=== PATIENT | female | born 1945 | race Caucasian/White ===

== ENCOUNTER 2016-06-12 15:38 | Inpatient (IN) ==
[2016-06-12] MEDS ORDERED: MORPHINE 2 MG/ML SYRINGE IM STA (15:59)
[2016-06-12] MEDS ORDERED: DECADRON 4 MG/ML SDV IM STA (15:59)
--- NOTE | 2016-06-12 16:02 | ED.PDOC ---
General ED Provider: Dr. FABIENNE JENNINGS Chief Complaint: Respiratory Complaint Stated Complaint: Start coughing cince yesterday night, today morning started having fever, coughing, congested, hurting all over, hurting in head from coughing. this is 3 episode since january. Time Seen by Physician: 16:00 Mode of Arrival: Walk-In Information Source: Patient Primary Care Provider: MILES JACKSON Nursing and Triage Documentation Reviewed and Agree: Yes Respiratory Complaint Exam - Respiratory Complaint/Exam Symptoms Are: Still present Timing: Constant Initial Severity: Moderate Current Severity: Moderate Location: Chest Character: Reports: Productive cough Aggravating: Reports: URI Alleviating: Reports: None Associated Signs and Symptoms: Reports: URI, Nasal congestion, Hoarseness, Sinus discomfort, Sore throat. Denies: Rapid breathing, Dyspnea, Fever, Chills , Chest pain, Pleuritic chest pain, Wheezing, Hemoptysis, Dizziness, Calf pain, Calf swelling, Edema, Vomiting, Weight loss, Decreased oral intake, Increased thirst, Increased appetite, Increased urination Related History: Reports: Similar episode History of Healthcare-Acquired Pneumonia: No Related Surgical History: Reports: None Pulmonary Embolism Risk Factors: None Cardiac Risk Factors: Reports: None Pseudomonas Risk Factors: Reports: None Tuberculosis Risk Factors: Reports: None Status Asthmaticus Risk Factors: Reports: None Home Oxygen Use: No Recent Stress Test: No Recent Echo/LV Function: No Current Antibiotic Use: No Current Asthma Medication Use: No Respiratory Distress: Mild Inadequate Respiratory Effort: No Dysphagia Present: No Stridor Present: No Accessory Muscle Use: No Retractions: Not Present Diminished Breath Sounds: No Sinus Tenderness: None Grunting Respirations: No Differential Diagnoses: Airway Obstruction, Pneumonia, Bronchitis, URI, Influenza Review of Systems - Review Of Systems Constitutional: Reports: Fever, Malaise, Weakness Eyes: Reports: No symptoms Ears, Nose, Mouth, Throat: Reports: No symptoms Respiratory: Reports: Cough Cardiac: Reports: No symptoms GI: Reports: No symptoms : Reports: No symptoms Musculoskeletal: Reports: No symptoms Skin: Reports: No symptoms Neurological: Reports: Headache Endocrine: Reports: No symptoms Hematologic/Lymphatic: Reports: No symptoms All Other Systems: Reviewed and Negative Past Medical History - Past Medical History Previously Healthy: No Endocrine: Reports: None Cardiovascular: Reports: None Respiratory: Reports: None Hematological: Reports: None Gastrointestinal: Reports: None Genitourinary: Reports: None Neuro/Psych: Reports: None Musculoskeletal: Reports: None Cancer: Reports: None Last Menstrual Period: post menopausal - Surgical History General Surgical History: Reports: None - Family History Family History: Reports: None - Social History Smoking Status: Former smoker Hx Substance Use: No Alcohol Screening: None Physical Exam - Physical Exam Appearance: Ill-appearing, Obese Pain Distress: Moderate Eyes: EOMI, Conjunctiva clear ENT: Ears normal, Nose normal, Oropharynx normal Respiratory: Airway patent, Breath sounds diminished, Crackles Cardiovascular: RRR, Pulses normal, No rub, No murmur GI/: Soft, Nontender, No masses, Bowel sounds normal, No Organomegaly Musculoskeletal: Normal strength, ROM intact, No edema, No calf tenderness Skin: Warm, Dry, Normal color Neurological: Sensation intact, Motor intact, Reflexes intact, Cranial nerves intact, Alert, Oriented Psychiatric: Affect appropriate, Mood appropriate Interpretation - Radiology Interpretation Radiology Interpretation By: Radiologist Radiology Results: Negative Exam Interpreted: CT Scan Re-Evaluation - Re-Evaluation Time of Re-Evaluation: 17:42 Status: Unchanged Critical Care Note - Critical Care Note Total Time (mins): 0 Course - Course Hematology/Chemistry: 06/12/16 16:15 06/12/16 16:15 Orders, Labs, Meds: Lab Review 06/12/16 06/12/16 16:15 17:20 WBC 5.70 RBC 4.27 Hgb 12.7 Hct 37.3 MCV 87.4 MCH 29.7 MCHC 34.0 RDW Coeff of Cely 13.5 Plt Count 207 Immature Gran % (Auto) 0.4 Neut % (Auto) 84.5 Lymph % (Auto) 7.4 [place] % (Auto) 6.3 Eos % (Auto) 0.9 Baso % (Auto) 0.5 Immature Gran # (Auto) 0.0 Neut # 4.8 Lymph # 0.4 L [place] # 0.4 Eos # 0.1 Baso # 0.0 Sodium 136 Potassium 3.9 Chloride 102 Carbon Dioxide 23 Anion Gap 14.9 BUN 11 Creatinine 0.81 Estimated GFR (MDRD) 70.00 BUN/Creatinine Ratio 13.58 Glucose 107 Lactic Acid 7.3 Calcium 10.4 H Total Bilirubin 0.42 AST 26 ALT 22 Alkaline Phosphatase 73 Total Creatine Kinase 212 CK-MB (CK-2) 1.2 CK-MB (CK-2) % 0.11560 Troponin I < 0.0100 Total Protein 7.5 Albumin 4.2 Globulin 3.3 Albumin/Globulin Ratio 1.27 Procalcitonin < 0.05 Urine Color Yellow Urine Clarity Clear Urine pH 7.0 Ur Specific [place] 1.015 Urine Protein Negative Urine Glucose (UA) Negative Urine Ketones 1+ Urine Blood Trace-intact Urine Nitrite Negative Urine Bilirubin Negative Urine Urobilinogen 1.0 Ur Leukocyte Esterase Negative Urine Microscopic RBC 2-5 Urine Microscopic WBC 0-2 Ur Squamous Epith Cells 0-2 Influenza A (Rapid) Negative Influenza B (Rapid) Negative Orders Category Date Time Status BLOOD CULTURE Stat LAB 06/12/16 16:15 Received CBC W/ AUTO DIFF Stat LAB 06/12/16 16:15 Completed COMPREHENSIVE METABOLIC PANEL Stat LAB 06/12/16 16:15 Completed CREATINE KINASE Stat LAB 06/12/16 16:15 Completed LACTIC ACID Stat LAB 06/12/16 16:15 Completed PROCALCITONIN Stat LAB 06/12/16 16:15 Completed RAPID FLU A/B Stat LAB 06/12/16 16:15 Completed TROPONIN I Stat LAB 06/12/16 16:15 Completed UA [URINALYSIS C & S IF INDICATED] Stat LAB 06/12/16 17:20 Completed Acetaminophen [Tylenol] MEDS 06/12/16 16:25 Discontinued 500 mg PO ONCE STA Dexamethasone 4 mg/ml Inj [Decadron 4 mg/ml Sdv] MEDS 06/12/16 15:59 Discontinued 4 mg IM ONCE STA Guaifenesin/Codeine Phosphate [Robitussin AC Syrup] MEDS 06/12/16 16:07 Discontinued 10 ml PO ONCE STA Morphine Sulfate [Morphine 2 mg/ml Syringe] MEDS 06/12/16 15:59 Discontinued 2 mg IM ONCE STA CT CHEST W/O CONTRAST Stat RADS 06/12/16 15:59 Completed Medications Discontinued Medications Generic Name Dose Route Start Last Admin Trade Name Freq PRN Reason Stop Dose Admin Acetaminophen 500 mg 06/12/16 16:25 06/12/16 16:46 Tylenol PO 06/12/16 16:26 500 mg ONCE STA Administration Dexamethasone Sodium Phosphate 4 mg 06/12/16 15:59 06/12/16 16:17 Decadron 4 Mg/Ml Sdv IM 06/12/16 16:00 4 mg ONCE STA Administration Guaifenesin/Codeine Phosphate 10 ml 06/12/16 16:07 06/12/16 16:22 Robitussin Ac Syrup PO 06/12/16 16:08 10 ml ONCE STA Administration Morphine Sulfate 2 mg 06/12/16 15:59 06/12/16 16:17 Morphine 2 Mg/Ml Syringe IM 06/12/16 16:00 2 mg ONCE STA Administration Vital Signs: Temp Pulse Resp BP Pulse Ox 06/12/16 17:38 103 F H 06/12/16 15:39 102.4 F H 103 H 24 183/112 H 95 Departure - Departure Time of Disposition: 17:43 Disposition: ADMITTED INPATIENT Discharge Problem: Dehydration, Viral infection Instructions: Viral Pneumonia (ED) Condition: Stable Pt referred to PMD for follow-up: No Allergies/Adverse Reactions: Allergies Penicillins Adverse Reaction (Verified 06/12/16 15:47) Home Medications: Ambulatory Orders Lisinopril/Hydrochlorothiazide [Zestoretic 20-12.5 mg Tablet] 1 each PO BID Disposition Discussed With: Patient
[2016-06-12] MEDS ORDERED: ROBITUSSIN AC SYRUP PO STA (16:07)
[2016-06-12] MEDS ORDERED: TYLENOL PO STA (16:25)
--- NOTE | 2016-06-12 16:26 | CT ---
EXAM: Chest CT without contrast TECHNIQUE: Helical axial CT of the chest was performed without contrast with coronal and sagittal r econstructions COMPARISON: None. HISTORY: Cough FINDINGS: Lungs are clear with no infiltrate or failure or effusion or nodule or mass. There is no pathologic mediastinal or hilar adenopathy. There is no supraclavicular or axillary adenopathy. T here is calcific atherosclerosis of the aorta. There is a small hiatal hernia. There are no acute osseous abnormalities. There is a tiny low attenuation focus within the right hepatic lobe too smal l to characterize but probably a simple cyst. There is a tiny hyperdense cyst in the upper pole of the left kidney. There are a few pancreatic calcifications. Upper abdomen is otherwise unremarkabl e IMPRESSION: 1. No acute abnormality in the chest. 2. Other miscellaneous findings as above.
[2016-06-12 16:30] LABS: BASOPHILS % (AUTO) 0.5 % (0.0-3.0); EOSINOPHILS # (AUTO) 0.1 K/ul (0.0-0.7); EOSINOPHILS % (AUTO) 0.9 % (0.0-7.0); HEMATOCRIT 37.3 % (37.0-47.0); HEMOGLOBIN 12.7 g/dl (12.0-16.0); IMMATURE GRANULOCYTE % (AUTO) 0.4 % (0.0-5.0); LYMPHOCYTES # (AUTO) 0.4 K/uL (0.60-3.4); LYMPHOCYTES % (AUTO) 7.4 (10.0-50.0); MEAN CORPUSCULAR HEMOGLOBIN 29.7 pg (27.0-31.0); MEAN CORPUSCULAR VOLUME 87.4 fl (81.0-99.0); MONOCYTES # (AUTO) 0.4 K/uL (0.4-2.0); MONOCYTES % (AUTO) 6.3 (0-10); NEUTROPHILS # (AUTO) 4.8 K/ul (2.0-6.9); NEUTROPHILS % (AUTO) 84.5; PLATELET COUNT 207 10^3/uL (140-440); RED BLOOD COUNT 4.27 10^6/ul (4.20-5.40)
[2016-06-12 16:49] LABS: FLU INTERNAL QC INTERNAL QC VALID; RAPID FLU A NEGATIVE (NEGATIVE); RAPID FLU B NEGATIVE (NEGATIVE)
[2016-06-12 17:06] LABS: ALANINE AMINOTRANSFERASE 22 U/L (12-78); ALBUMIN 4.2 g/dL (3.4-5.0); ALBUMIN/GLOBULIN RATIO 1.27; ALKALINE PHOSPHATASE 73 U/L (53-141); ANION GAP 14.9; ASPARTATE AMINO TRANSFERASE 26 U/L (15-37); BILIRUBIN,TOTAL 0.42 mg/dL (0.00-1.20); BLOOD UREA NITROGEN 11 mg/dL (7-18); BUN/CREATININE RATIO 13.58; CALCIUM 10.4 mg/dL (8.2-10.2); CARBON DIOXIDE 23 mmol/L (23-31); CHLORIDE 102 mmol/L (98-107); CREATINE KINASE 212 U/L; CREATININE 0.81 mg/dL (0.60-1.30); GLUCOSE 107 mg/dL (82-115); POTASSIUM 3.9 mmol/L (3.5-5.10); SODIUM 136 mmol/L (136-145); TOTAL PROTEIN 7.5 g/dL (5.8-8.1)
[2016-06-12 17:07] LABS: CREATINE KINASE MB 1.2 ng/ml (0.0-3.6)
[2016-06-12 17:26] LABS: BILIRUBIN,URINE Negative (NEGATIVE); KETONES,URINE 1+ (NEGATIVE); LEUKOCYTE ESTERASE ,URINE Negative (NEGATIVE); NITRITE,URINE Negative (NEGATIVE); PROTEIN,URINE Negative (NEGATIVE); URINE, BLOOD Trace-intact (NEGATIVE)
[2016-06-12 17:31] LABS: ADD URINE MICROSCOPIC YES
[2016-06-12] MEDS ORDERED: CATAPRES PO STA (17:43)
[2016-06-12] MEDS ORDERED: ROCEPHIN 1 GM in SODIUM CHLORIDE 50 ML IV SCH (18:00)
[2016-06-12] MEDS: SODIUM CHLORIDE 1,000 ML IV SCH (19:01)
[2016-06-12] MEDS ORDERED: ROCEPHIN ONE (19:20)
[2016-06-12] MEDS: DUONEB NEB SCH ×2 (19:40→23:01)
[2016-06-12 19:52] VITALS: BMI 39.6
[2016-06-12] MEDS: TESSALON PERLES PO SCH ×2 (20:08→20:49)
[2016-06-12] MEDS: TYLENOL PO PRN (20:09)
[2016-06-12] MEDS ORDERED: SODIUM CHLORIDE 50 ML IV ONE (20:11)
[2016-06-12] MEDS: SOLU-MEDROL 40 MG IVP SCH ×2 (20:12→20:49)
[2016-06-13 00:53] LABS: BASOPHILS % (AUTO) 0.2 % (0.0-3.0); HEMATOCRIT 35.6 % (37.0-47.0); HEMOGLOBIN 12.1 g/dl (12.0-16.0); IMMATURE GRANULOCYTE % (AUTO) 0.2 % (0.0-5.0); LYMPHOCYTES # (AUTO) 0.3 K/uL (0.60-3.4); LYMPHOCYTES % (AUTO) 7.2 (10.0-50.0); MEAN CORPUSCULAR HEMOGLOBIN 29.7 pg (27.0-31.0); MEAN CORPUSCULAR VOLUME 87.5 fl (81.0-99.0); MONOCYTES # (AUTO) 0.1 K/uL (0.4-2.0); MONOCYTES % (AUTO) 2.4 (0-10); NEUTROPHILS # (AUTO) 3.7 K/ul (2.0-6.9); PLATELET COUNT 200 10^3/uL (140-440); RED BLOOD COUNT 4.07 10^6/ul (4.20-5.40); WHITE BLOOD COUNT 4.15 K/ul (4.6-10.2)
[2016-06-13 01:40] LABS: ALBUMIN 3.7 g/dL (3.4-5.0); ALBUMIN/GLOBULIN RATIO 1.09; ANION GAP 13.6; BILIRUBIN,TOTAL 0.26 mg/dL (0.00-1.20); BUN/CREATININE RATIO 15.18; CALCIUM 10.2 mg/dL (8.2-10.2); CREATINE KINASE MB 1.1 ng/ml (0.0-3.6); CREATININE 0.79 mg/dL (0.60-1.30); POTASSIUM 3.6 mmol/L (3.5-5.10); TOTAL PROTEIN 7.1 g/dL (5.8-8.1); TROPONIN I 0.016 ng/ml (0.0000-0.4000)
[2016-06-13] MEDS: SOLU-MEDROL 40 MG IVP SCH ×3 (04:00→21:11)
[2016-06-13] MEDS: TYLENOL PO PRN ×2 (04:01→12:26)
[2016-06-13] MEDS: DUONEB NEB SCH ×4 (04:51→23:04)
[2016-06-13] MEDS: LOVENOX SUBCUT SCH (09:35)
[2016-06-13] MEDS: TESSALON PERLES PO SCH ×3 (09:35→21:02)
[2016-06-13] MEDS: ZESTORETIC 20-12.5 MG TAB PO SCH ×3 (09:37→21:02)
[2016-06-13] MEDS: SODIUM CHLORIDE 1,000 ML IV SCH (09:39)
--- NOTE | 2016-06-13 13:00 | PCM.PROG ---
Attending Provider: ATTENDING PROVIDER: Dr. MILES JACKSON DATE OF SERVICE: 06/13/16 SUBJECTIVE: This 70 year old WHITE/ F was hospitalized 06/12/16. The patient is hospitalized with acute bronchitis, COPD, and severe hypertension. Condition is stable. She is still coughing and abdominal muscles are sore from coughing. She is not in any distress, running a low grade fever. Testing for influenza A and B were negative. REVIEW OF SYSTEMS: CONSTITUTIONAL: No night sweats. No fatigue, malaise, lethargy. No fever or chills. HEENT: Eyes: No visual changes. No eye pain. No eye discharge. ENT: No runny nose. No epistaxis. No sinus pain. No odynophagia. No congestion. RESPIRATORY: Dry cough, no congestion. No hemoptysis. CARDIOVASCULAR: No angina symptoms. No CHF symptoms. No atypical chest pain for CAD. No palpitations. No shortness of breath. No PND, no orthopnea. GASTROINTESTINAL: No abdominal pain. No nausea or vomiting. No diarrhea or constipation. No hematemesis. No hematochezia. GENITOURINARY: No urgency. No frequency. No dysuria. No hematuria. No obstructive symptoms. No discharge. No pain. No significant abnormal bleeding. MUSCULOSKELETAL: No musculoskeletal pain; no joint swelling. NEUROLOGICAL: Awake, alert, oriented to time, place and person. No headache. No neck pain. No syncope. No seizures. No dizziness. PSYCHIATRIC: Not anxious. No depression. No suicidal thoughts. No homicidal thoughts. SKIN: No rash. No lesions. No wounds. ENDOCRINE: No unexplained weight loss. No weight gain. HEMATOLOGIC/LYMPHATIC: No anemia. No purpura. No petechiae. No prolonged or excessive bleeding. No palpable lymph nodes. PHYSICAL EXAMINATION: GENERAL: The patient is awake, alert and oriented, lying in bed in no distress. VITAL SIGNS: Temperature 99.5 F, Pulse 69, Respiratory Rate 17, BP 156/75, Pulse Ox 99% HEENT: Head normocephalic, atraumatic. Eyes: Extraocular muscles are intact. Pupils are equal, round and reactive to light and accommodation. Ears: No lesions. Nose appeared normal. Throat: No exudate or erythema. NECK: Supple. No JVD, no carotid bruit. No lymphadenopathy or thyromegaly. LUNGS: Decreased breath sounds. Inspiratory and expiratory wheeze present. Percussion note normal. Chest symmetrical. HEART: S1, S2, no S3. No murmurs. No cyanosis or clubbing. No ascites. Pulses: Dorsalis pedis and posterior tibial pulses +1 to +2 both sides. ABDOMEN: Soft. Non-tender. Bowel sounds active. No CVA tenderness. No mass felt. EXTREMITIES: No edema. Full range of motion of all extremities, equal. NEUROLOGIC: No focal deficit. Cranial nerves II through XII are grossly intact. No headache, no double vision or headache. SKIN: Not dry. Intact. Turgor-normal. LYMPHATIC: No palpable lymph nodes/no lymphedema. MUSCULOSKELETAL: Normal joints with no swelling. Muscle tone is normal. LAB REVIEW: 06/13/16 00:50 06/13/16 00:50 06/13/16 00:50: WBC 4.15 L, RBC 4.07 L, Hgb 12.1, Hct 35.6 L, MCV 87.5, MCH 29.7 , MCHC 34.0, RDW Coeff of Cely 13.5, Plt Count 200, Immature Gran % (Auto) 0.2, Neut % (Auto) 90.0, Lymph % (Auto) 7.2 L, [place] % (Auto) 2.4, Eos % (Auto) 0.0, Baso % (Auto) 0.2, Immature Gran # (Auto) 0.0, Neut # 3.7, Lymph # 0.3 L, [place] # 0.1 L, Eos # 0.0, Baso # 0.0, Sodium 138, Potassium 3.6, Chloride 105, Carbon Dioxide 23, Anion Gap 13.6, BUN 12, Creatinine 0.79, Estimated GFR (MDRD) 72.00 , BUN/Creatinine Ratio 15.18, Glucose 175 H D, Calcium 10.2, Total Bilirubin 0.26, AST 25, ALT 21, Alkaline Phosphatase 63, Total Creatine Kinase 314, CK-MB (CK-2) 1.1, CK-MB (CK-2) % 0.24093, Troponin I 0.0160, Total Protein 7.1, Albumin 3.7, Globulin 3.4, Albumin/Globulin Ratio 1.09 ASSESSMENT: 1. Acute bronchitis 2. Severe hypertension 3. Obesity PLAN: 1. Discontinue Morphine 2. Discontinue IV as long as the patient is eating good. 3. Up and about. 4. Tessalon Perles 200 mg t.i.d. for dry cough. 5. Regular diet. 6. Monitor blood pressure. Plan and coordination of the patient's care discussed in the presence of Automated Equipment Engineer Technician and nurse. CONDITION: STABLE SCRIBED BY: FAUSTINO ANGUIANO Tool Dresser scribed while in presence of service performed by Dr. MILES JACKSON on 06/13/16 ([id number])
[2016-06-13] MEDS ORDERED: ROCEPHIN 1 GM in SODIUM CHLORIDE 100 ML IV SCH (21:00)
[2016-06-14] MEDS: TYLENOL PO PRN ×2 (00:35→15:48)
[2016-06-14] MEDS: DUONEB NEB SCH ×4 (05:26→23:08)
[2016-06-14] MEDS: SOLU-MEDROL 40 MG IVP SCH ×2 (05:33→13:00)
[2016-06-14 05:35] LABS: BASOPHILS % (AUTO) 0.1 % (0.0-3.0); HEMATOCRIT 35.7 % (37.0-47.0); HEMOGLOBIN 12.1 g/dl (12.0-16.0); IMMATURE GRANULOCYTE % (AUTO) 0.6 % (0.0-5.0); LYMPHOCYTES # (AUTO) 0.7 K/uL (0.60-3.4); LYMPHOCYTES % (AUTO) 10.4 (10.0-50.0); MEAN CORPUSCULAR HEMOGLOBIN 29.7 pg (27.0-31.0); MEAN CORPUSCULAR HGB CONC 33.9 (31.8-35.4); MEAN CORPUSCULAR VOLUME 87.7 fl (81.0-99.0); MONOCYTES # (AUTO) 0.4 K/uL (0.4-2.0); MONOCYTES % (AUTO) 5.5 (0-10); NEUTROPHILS # (AUTO) 5.9 K/ul (2.0-6.9); NEUTROPHILS % (AUTO) 83.4; PLATELET COUNT 215 10^3/uL (140-440); RED BLOOD COUNT 4.07 10^6/ul (4.20-5.40); WHITE BLOOD COUNT 7.11 K/ul (4.6-10.2)
[2016-06-14 06:07] LABS: ALBUMIN 3.6 g/dL (3.4-5.0); ALBUMIN/GLOBULIN RATIO 1.09; BILIRUBIN,TOTAL 0.3 mg/dL (0.00-1.20); BUN/CREATININE RATIO 21.42; CALCIUM 10.6 mg/dL (8.2-10.2); CREATININE 0.84 mg/dL (0.60-1.30); TOTAL PROTEIN 6.9 g/dL (5.8-8.1)
[2016-06-14] MEDS: LOVENOX SUBCUT SCH (09:03)
[2016-06-14] MEDS: TESSALON PERLES PO SCH ×3 (09:03→20:34)
[2016-06-14] MEDS: ZESTORETIC 20-12.5 MG TAB PO SCH ×2 (09:03→20:33)
--- NOTE | 2016-06-14 11:21 | HP ---
DATE OF SERVICE: 06/12/16 REASON FOR HOSPITALIZATION: Fever, chills, cough, congestion, uncontrolled hypertension. HISTORY OF PRESENT ILLNESS: 70-year-old white female was brought to the emergency room with fever and chills with cough and congestion. The patient also had a blood pressure of 180/ 112. She was short of breath. REVIEW OF SYSTEMS: CONSTITUTIONAL: Fatigue and weakness. No fever. HEENT: No sinus drainage, no sore throat. RESPIRATORY: Cough and congestion, yellowish sputum production. No hemoptysis. CARDIOVASCULAR: Pleuritic type of pain and shortness of breath. No PND, no orthopnea. GASTROINTESTINAL: The patient does not have much appetite. No nausea, no vomiting. No melena or abdominal pain. No GERD. GENITOURINARY: No hematuria, no polyuria. RAIL FILLER: No blackout, no dizziness, no headache, no double vision. MUSCULOSKELETAL: No osteoarthritis pain, no joint swelling. ENDOCRINE: No weight loss, no weight gain. SKIN: Not dry, no rash. PSYCHIATRIC: Not anxious, no depression, no suicidal thoughts, no homicidal thoughts. PAST MEDICAL/SURGICAL HISTORY: 1. Chronic lung disease 2. Hypertension 3. BMI of 40 with morbid obesity 4. Generalized osteoarthritis 5. Chronic anemia 6. Hyperglycemia SOCIAL HISTORY: The patient lives by herself, does all activity of daily living, nonsmoker. No alcohol abuse. Nearest relative is a Grandson, Celestine Vitale. MEDICATIONS: (HOME) 1. Lisinopril/Hydrochlorothiazide (Zestoretic 20-12.5 mg) one each p.o. b.i.d. ALLERGIES: PENICILLIN PHYSICAL EXAMINATION: V/S: Temperature 99.5, pulse 66, respiratory rate 17, BP 156/75, pulse ox 99%. GENERAL APPEARANCE: Oriented to time, place and person. HEENT: Normal. NECK: Supple. No JVP, no bruits. No lymphadenopathy. RESPIRATORY: Lungs have decreased breath sounds but clear. CARDIOVASCULAR: Grade I/ systolic murmur. No cyanosis, clubbing. GI/ABDOMEN: Soft, no ascites. No tenderness. Bowel sounds are active. EXTREMITIES: Trace edema, pulses +1, equal. Moving all extremities. RAIL FILLER: Deep tendon reflexes, sensory, motor and gait all normal. SKIN: Dry, mucous membranes somewhat dry. ASSESSMENT: 1. ACUTE BRONCHITIS/PNEUMONITIS 2. SEVERE HYPERTENSION 3. CHRONIC LUNG DISEASE 4. ABNORMAL EKG WITH BUNDLE BRANCH BLOCK PATTERN WITH POOR R WAVE PROGRESSION 5. HYPERGLYCEMIA 6. ANEMIA 7. MORBID OBESITY PLAN: 1. IV antibiotics 2. IV steroids 3. Nebs treatment 4. IV fluids 5. Will do echocardiogram to evaluate LV function and abnormal EKG the patient has 6. Will do PFT to evaluate the patient's breathing capacity. 7. Counseling for weight loss done. 8. Breathing exercises discussed with the patient. CONDITION: Stable. TIME SPENT: More than 70 minutes. DEREKD
[2016-06-14] MEDS ORDERED: ROBITUSSIN DM SYRUP PO PRN (13:07)
[2016-06-14] MEDS: KEFLEX PO SCH ×2 (14:08→20:34)
[2016-06-14] MEDS ORDERED: MYLICON PO STA (15:29)
[2016-06-14] MEDS: PREDNISONE PO SCH (16:57)
[2016-06-15] MEDS: DUONEB NEB SCH ×2 (04:36→11:10)
[2016-06-15] MEDS: KEFLEX PO SCH ×2 (04:59→13:45)
[2016-06-15 05:17] LABS: BASOPHILS % (AUTO) 0.1 % (0.0-3.0); HEMATOCRIT 37.4 % (37.0-47.0); HEMOGLOBIN 12.7 g/dl (12.0-16.0); IMMATURE GRANULOCYTE % (AUTO) 0.5 % (0.0-5.0); LYMPHOCYTES # (AUTO) 1.6 K/uL (0.60-3.4); LYMPHOCYTES % (AUTO) 19.2 (10.0-50.0); MEAN CORPUSCULAR HEMOGLOBIN 29.8 pg (27.0-31.0); MEAN CORPUSCULAR VOLUME 87.8 fl (81.0-99.0); MONOCYTES # (AUTO) 0.5 K/uL (0.4-2.0); MONOCYTES % (AUTO) 6.1 (0-10); NEUTROPHILS # (AUTO) 6.3 K/ul (2.0-6.9); NEUTROPHILS % (AUTO) 74.1; PLATELET COUNT 228 10^3/uL (140-440); RED BLOOD COUNT 4.26 10^6/ul (4.20-5.40); WHITE BLOOD COUNT 8.47 K/ul (4.6-10.2)
[2016-06-15 06:05] LABS: ALBUMIN 3.8 g/dL (3.4-5.0); ALBUMIN/GLOBULIN RATIO 1.19; ANION GAP 14.5; BILIRUBIN,TOTAL 0.39 mg/dL (0.00-1.20); BUN/CREATININE RATIO 26.5; CALCIUM 10.4 mg/dL (8.2-10.2); CREATININE 0.83 mg/dL (0.60-1.30); POTASSIUM 3.5 mmol/L (3.5-5.10)
[2016-06-15] MEDS: TYLENOL PO PRN (06:07)
[2016-06-15] MEDS ORDERED: TORADOL IVP PRN (08:22)
[2016-06-15] MEDS: PREDNISONE PO SCH (08:45)
[2016-06-15] MEDS: ZESTORETIC 20-12.5 MG TAB PO SCH (08:45)
[2016-06-15] MEDS: TESSALON PERLES PO SCH ×2 (08:45→15:37)
[2016-06-15] MEDS: LOVENOX SUBCUT SCH (08:46)
[2016-06-15] MEDS ORDERED: TUSSIONEX PO SCH (09:00)
--- NOTE | 2016-06-15 11:24 | PCM.PROG ---
Attending Provider: ATTENDING PROVIDER: Dr. MILES JACKSON DATE OF SERVICE: 06/15/16 SUBJECTIVE: This 71 year old WHITE/ F was hospitalized 06/12/16. The patient is hospitalized with febrile illness, uncontrolled hypertension, cough and congestion. The patient still has a croupy cough with pleuritic pain. REVIEW OF SYSTEMS: CONSTITUTIONAL: No night sweats. No fatigue, malaise, lethargy. No fever or chills. HEENT: Eyes: No visual changes. No eye pain. No eye discharge. ENT: No runny nose. No epistaxis. No sinus pain. No odynophagia. No congestion. RESPIRATORY: Dry cough. No congestion. No hemoptysis. CARDIOVASCULAR: Chest pain usually with cough. No angina symptoms. No CHF symptoms. No palpitations. No shortness of breath. No PND, no orthopnea. GASTROINTESTINAL: No abdominal pain. No nausea or vomiting. No diarrhea or constipation. No hematemesis. No hematochezia. GENITOURINARY: No urgency. No frequency. No dysuria. No hematuria. No obstructive symptoms. No discharge. No pain. No significant abnormal bleeding. MUSCULOSKELETAL: No musculoskeletal pain; no joint swelling. NEUROLOGICAL: Awake, alert, oriented to time, place and person. No headache. No neck pain. No syncope. No seizures. No dizziness. PSYCHIATRIC: Not anxious. No depression. No suicidal thoughts. No homicidal thoughts. SKIN: No rash. No lesions. No wounds. ENDOCRINE: No unexplained weight loss. No weight gain. HEMATOLOGIC/LYMPHATIC: No anemia. No purpura. No petechiae. No prolonged or excessive bleeding. No palpable lymph nodes. PHYSICAL EXAMINATION: GENERAL: The patient is awake, alert and oriented, sitting on the side of the bed in no distress. VITAL SIGNS: Temperature 97.0 F, Pulse 68, Respiratory Rate 20, BP 149/79, Pulse Ox 98% HEENT: Head normocephalic, atraumatic. Eyes: Extraocular muscles are intact. Pupils are equal, round and reactive to light and accommodation. Ears: No lesions. Nose appeared normal. Throat: No exudate or erythema. NECK: Supple. No JVD, no carotid bruit. No lymphadenopathy or thyromegaly. LUNGS: Clear to auscultation. Percussion note normal. Chest symmetrical. HEART: S1, S2, no S3. No murmurs. No cyanosis or clubbing. No ascites. Pulses: Dorsalis pedis and posterior tibial pulses +1 to +2 both sides. ABDOMEN: Soft. Non-tender. Bowel sounds active. No CVA tenderness. No mass felt. EXTREMITIES: No edema. Full range of motion of all extremities, equal. NEUROLOGIC: No focal deficit. Cranial nerves II through XII are grossly intact. No headache, no double vision or headache. SKIN: Not dry. Intact. Turgor-normal. LYMPHATIC: No palpable lymph nodes/no lymphedema. MUSCULOSKELETAL: Normal joints with no swelling. Muscle tone is normal. LAB REVIEW: 06/15/16 05:07 06/15/16 05:07 06/15/16 05:07: WBC 8.47, RBC 4.26, Hgb 12.7, Hct 37.4, MCV 87.8, MCH 29.8, MCHC 34.0, RDW Coeff of Cely 13.8, Plt Count 228, Immature Gran % (Auto) 0.5, Neut % (Auto) 74.1, Lymph % (Auto) 19.2, [place] % (Auto) 6.1, Eos % (Auto) 0.0, Baso % (Auto) 0.1, Immature Gran # (Auto) 0.0, Neut # 6.3, Lymph # 1.6, [place] # 0.5, Eos # 0.0, Baso # 0.0, Sodium 137, Potassium 3.5, Chloride 100, Carbon Dioxide 26, Anion Gap 14.5, BUN 22 H, Creatinine 0.83, Estimated GFR (MDRD) 67.00, BUN/Creatinine Ratio 26.50, Glucose 94, Calcium 10.4 H, Total Bilirubin 0.39, AST 45 H, ALT 35, Alkaline Phosphatase 56, Total Protein 7.0, Albumin 3.8 , Globulin 3.2, Albumin/Globulin Ratio 1.19 ASSESSMENT: 1. Acute bronchitis 2. Chronic lung disease 3. Obesity 4. Hypertension PLAN: 1. Give Tussionex 2 to 3 teaspoons b.i.d. and Toradol 30 mg IV q.12 hr for pleuritic pain, combination for dry cough and pleuritic pain. 2. Continue antibiotics and steroids. Plan and coordination of the patient's care discussed in the presence of Sr. Payroll Processor and nurse. CONDITION: Stable SCRIBED BY: FAUSTINO ANGUIANO, Tub Washer scribed while in presence of service performed by Dr. MILES JACKSON on 06/15/16 ([id number])
--- NOTE | 2016-06-15 11:44 | PCM.PROG ---
Attending Provider: ATTENDING PROVIDER: Dr. MILES JACKSON - SEEN DR. GRAVES DATE OF SERVICE: 06/14/16 SUBJECTIVE: This 70 year old WHITE/ F was hospitalized 06/12/16. The patient complains of coughing and soreness from coughing. No fever, no chills. She complains of feeling weak and tired. REVIEW OF SYSTEMS: CONSTITUTIONAL: Weakness and tiredness. No fever, no chills. ENDOCRINE: No weight loss or weight gain. HEENT: No sinus drainage, no sore throat. CVS: Chest soreness from coughing. No angina symptoms. No CHF symptoms. No palpitations. No shortness of breath. RESPIRATORY: Cough, dry. No hemoptysis. GI: No melena. No abdominal pain. No nausea, no vomiting. : No hematuria. No polyuria. SKIN: No rash. No wounds. MUSCULOSKELETAL: Generalized aches and pains. SAFETY PHYSICIAN: No blackout, no dizziness. No headache. No double vision. PSYCHIATRIC: Not anxious; no depression. No suicidal thoughts. No homicidal thoughts. PHYSICAL EXAMINATION: GENERAL: Lying in bed in no distress. VITAL SIGNS: Temperature 97.6 F, Pulse 61, Respiratory Rate 21, BP 138/68, Pulse Ox 94% HEENT: Normocephalic, atraumatic. Mucosa is dry, pallor positive. NECK: No JVP, no carotid bruit. No lymphadenopathy. CARDIAC: S1, S2, no S3. No murmur, gallop or regurgitation. LUNGS: Clear to auscultation. ABDOMEN: Soft, non-tender. Bowel sounds active. No rigidity, guarding or CVA tenderness. EXTREMITIES: No clubbing, cyanosis or edema. NEUROLOGIC: Awake, alert and oriented x3. LYMPHATIC: No palpable lymph nodes SKIN: Not dry. Intact. MUSCULOSKELETAL: No joint swelling. LAB REVIEW: 06/14/16 05:00 06/14/16 05:00 06/14/16 05:00: WBC 7.11, RBC 4.07 L, Hgb 12.1, Hct 35.7 L, MCV 87.7, MCH 29.7, MCHC 33.9, RDW Coeff of Cely 13.7, Plt Count 215, Immature Gran % (Auto) 0.6, Neut % (Auto) 83.4, Lymph % (Auto) 10.4, [place] % (Auto) 5.5, Eos % (Auto) 0.0, Baso % (Auto) 0.1, Immature Gran # (Auto) 0.0, Neut # 5.9, Lymph # 0.7, [place] # 0.4, Eos # 0.0, Baso # 0.0, Sodium 138, Potassium 4.0, Chloride 103, Carbon Dioxide 27, Anion Gap 12.0, BUN 18, Creatinine 0.84, Estimated GFR (MDRD) 67.00 , BUN/Creatinine Ratio 21.42, Glucose 118 H, Calcium 10.6 H, Total Bilirubin 0.30, AST 39 H, ALT 27, Alkaline Phosphatase 55, Total Protein 6.9, Albumin 3.6 , Globulin 3.3, Albumin/Globulin Ratio 1.09 ASSESSMENT: 1. Acute bronchitis 2. Chronic lung disease 3. Obesity 4. Hypertension PLAN: 1. Robitussin q.4hr Plan and coordination of the patient's care discussed in the presence of Continuous Improvement Facilitator and nurse. CONDITION: Stable SCRIBED BY: FAUSTINO ANGUIANO Audit Machine Operator scribed while in presence of service performed by Dr. Graves on 06/14/16 ([id number])
--- NOTE | 2016-06-15 14:32 | CM.DICTOOL ---
ADMISSION: 06/12/16 18:10 DISCHARGE: 06/15/16 DATE OF SERVICE: 06/15/16 FINAL DIAGNOSIS BRONCHITIS, ACUTE DEHYDRATION HYPERTENSION PLEURITIC-TYPE PAIN WITH COUGHING CHRONIC LUNG DISEASE DYSLIPIDEMIA OBESITY (BMI 39.7) ARTHRITIS RIGHT WRIST FRACTURE S/P PINNING LAST VITALS Temp Pulse Resp BP Pulse Ox 97.0 F L 68 20 149/79 H 98 06/15/16 06:00 06/15/16 06:00 06/15/16 06:00 06/15/16 06:00 06/15/16 06:00 ACTIVE HOME MEDICATIONS Cephalexin (Keflex) 500 mg PO BID X 5 DAYS [facility] (NEW) Last Admin: 06/15/16 04:59 Dose: 500 mg Lisinopril/HCTZ (Zestoretic 20-12.5 Mg Tab) 1 tab PO BID [facility] Last Admin: 06/14/16 20:33 Dose: 1 tab Prednisone (Prednisone) 10 mg PO BIDWM X 5 DAYS [facility] ([facility]) Last Admin: 06/14/16 16:57 Dose: 10 mg Tussionex 5 ml PO Q12 HOURS PRN coughing (NEW) ALLERGIES Penicillins Adverse Reaction (Verified 06/12/16 15:47) NEW PRESCRIPTIONS: KEFLEX 500 MG, TAKE ONE TABLET BY MOUTH TWICE DAILY FOR 5 (FIVE) DAYS PREDNISONE 10 MG, TAKE ONE TABLET BY MOUTH TWICE DAILY WITH MEALS FOR 5 (FIVE) DAYS TUSSIONEX 5ML, TAKE 5 ML BY MOUTH EVERY 12 HOURS NEEDED FOR COUGHING SMOKING: NONSMOKER DISEASE SPECIFIC EDUCATION: BRONCHITIS FEVER DEHYDRATION HYPERTENSION HOME MEDICATIONS NEW MEDICATIONS LAB REVIEW: 06/15/16 05:07 06/15/16 05:07 06/15/16 05:07: WBC 8.47, RBC 4.26, Hgb 12.7, Hct 37.4, MCV 87.8, MCH 29.8, MCHC 34.0, RDW Coeff of Cely 13.8, Plt Count 228, Immature Gran % (Auto) 0.5, Neut % (Auto) 74.1, Lymph % (Auto) 19.2, [place] % (Auto) 6.1, Eos % (Auto) 0.0, Baso % (Auto) 0.1, Immature Gran # (Auto) 0.0, Neut # 6.3, Lymph # 1.6, [place] # 0.5, Eos # 0.0, Baso # 0.0, Sodium 137, Potassium 3.5, Chloride 100, Carbon Dioxide 26, Anion Gap 14.5, BUN 22 H, Creatinine 0.83, Estimated GFR (MDRD) 67.00, BUN/Creatinine Ratio 26.50, Glucose 94, Calcium 10.4 H, Total Bilirubin 0.39, AST 45 H, ALT 35, Alkaline Phosphatase 56, Total Protein 7.0, Albumin 3.8 , Globulin 3.2, Albumin/Globulin Ratio 1.19 PLAN: DISCHARGE HOME TODAY RETURN TO SEE DR. JACKSON IN 5 DAYS. PLEASE PHONE THE OFFICE TO SCHEDULE YOUR FOLLOW UP APPOINTMENT ([phone]) RESUME YOUR HOME MEDICATIONS PER LIST PROVIDED BY THE NURSING STAFF NEW PRESCRIPTIONS: KEFLEX 500 MG, TAKE ONE TABLET BY MOUTH TWICE DAILY FOR 5 (FIVE) DAYS PREDNISONE 10 MG, TAKE ONE TABLET BY MOUTH TWICE DAILY WITH FOOD FOR 5 (FIVE) DAYS TUSSINEX 5 ML'S, TAKE 1 TSP BY MOUTH TWICE DAILY NEEDED FOR COUGHING FOR 5 ( FIVE) DAYS ACTIVITY: GET PLENTY OF REST AT HOME. GRADUALLY INCREASE YOUR ACTIVITY LEVEL ACCORDING TO YOUR TOLERATION DIET: HEALTHY HEART STAY WELL HYDRATED SUMMARY: THE PATIENT IS ALERT AND ORIENTED X3. SHE CURRENTLY RESIDES AT HOME ALONE. SHE IS INDEPENDENT WITH ADL'S. SHE REQUIRES NO DME. SHE DOES NOT UTILIZE NO HOME HEALTH SERVICES. SHE OCCASIONALLY EMPLOYS PRIVATE HOMEMAKING SERVICES TO ASSIST WITH HOUSEKEEPING TASKS DUE TO HER BUSY LIFESTYLE. SHE DESIRES TO RETURN HOME AT DISCHARGE. HER SKIN TURGOR IS INTACT AND WITHOUT DECUBITUS ULCERS. SHE IS AFEBRILE AND HAS SHOWN GOOD IMPROVEMENT CLINICALLY. SHE IS AWARE AND AGREEABLE FOR DISCHARGE HOME. DR. MILES JACKSON M.D.
[2016-06-15 15:11] VITALS: BP 139/85; TEMP 97.1
--- NOTE | 2016-06-22 11:28 | DS ---
DATE OF SERVICE: 06/15/16 FINAL DIAGNOSIS: 1. Bronchitis, acute 2. Dehydration 3. Hypertension 4. Pleuritic- type pain with coughing 5. Chronic lung disease 6. Dyslipidemia 7. Obesity (BMI 39.7) 8. Arthritis 9. 10.Right wrist fracture statue post pinning. LAST VITALS: Temperature 97, pulse 68, respiratory rate 20, blood pressure 149/79 and pulse ox 98%. DISCHARGE INSTRUCTIONS: Discharge home today. Return to see Dr. Flores in five days. Resume home medications per list. MEDICATIONS AT DISCHARGE: Keflex 500mg PO twice a day x5 days Zestoretic 20-12.5mg one tablet PO twice a day Prednisone 10mg PO twice a day X5 days Tussionex 5ml PO Q 12 hours PRN ALLERGIES: Penicillin NEW PRESCRIPTIONS: Keflex 500mg take one tablet by mouth twice daily for five days Prednisone 10mg take one tablet by mouth twice daily with meals for five days Tussionex 5ml, take 5ml by mouth every 12 hours as needed for coughing. DIET INSTRUCTIONS: Healthy heart Stay well hydrated ACTIVITY: Get plenty of rest at home. Gradually increase your activity level according to toleration. SMOKING: Non-smoker DISEASE SPECIFIC EDUCATION: Bronchitis Fever Dehydration Hypertension Home medications New medications HOSPITAL COURSE: The patient is a 71 year old white female was hospitalized with severe acute bronchitis and severe hypertension. The patient's respiratory status improved remarkable with IV steroids, IV antibiotics, NEBS treatment, Oxygen. The patient still has dry cough which will be controlled with Tussionex. The patient 's hydration status has improved and the blood pressure at the day of discharge was 150/80. The patient was discharged on Keflex and steroids to be taken for five days. She is going to be seen in the office in five days. LABS: hgb 12.7, hct 37, WBC 8,400 normal differential, creatinine 0.8, BUN 22, potassium 3.5, glucose 94, estimated GFR 67 cc per minute. CONDITION: Stable TIME SPENT: More than 60 minutes. MTDD
--- NOTE | 2016-06-22 11:30 | PN ---
06/12/16: Level 5 06/13/16: Intermediate 06/14/16: Intermediate 06/15/16: D as in discharge MTDD
== END 2016-06-15 15:25 | disposition home or self-care (01) | DRG 203 ==
LOC: ED 15:38 → MEDSURG B 18:10
PROVIDERS: ADMIT Internal Medicine; ATTEND Internal Medicine
DX: J20.9 Acute bronchitis, unspecified (principal); I10 Essential (primary) hypertension; E86.0 Dehydration; B34.9 Viral infection, unspecified; R05 Cough; E66.01 Morbid (severe) obesity due to excess calories; Z68.39 Body mass index [BMI] 39.0-39.9, adult; R07.81 Pleurodynia; J44.9 Chronic obstructive pulmonary disease, unspecified; E78.5 Hyperlipidemia, unspecified; M19.90 Unspecified osteoarthritis, unspecified site; Z79.899 Other long term (current) drug therapy
CPT/HCPCS: 36415; 80053; 81001; 82550; 82553; 83605; 84145; 84484; 85025; 87040; 87804; 93005; 93010; 94640; 96372; 99284

== ENCOUNTER 2017-04-26 06:45 | Outpatient (CLI) | END 2017-04-26 06:46 | disposition home or self-care (01) | LOC: CAR 06:45 | PROVIDERS: ATTEND Internal Medicine | DX: R06.02 Shortness of breath (principal); I10 Essential (primary) hypertension; E78.5 Hyperlipidemia, unspecified; Z82.49 Family history of ischemic heart disease and other diseases of the circulatory system | CPT/HCPCS: 93005; 93010 ==

== ENCOUNTER 2017-08-16 11:13 | Inpatient (IN) | payer OTHER ==
[2017-08-16] MEDS ORDERED: VISTARIL INJ IM PRN (11:41)
[2017-08-16] MEDS ORDERED: MORPHINE 4 MG/ML VIAL IVP PRN (11:41)
[2017-08-16] MEDS ORDERED: NITROSTAT SL PRN (11:41)
[2017-08-16] MEDS ORDERED: ATROPINE SULFATE PFS IVP PRN (11:41)
[2017-08-16 11:53] VITALS: BMI 39.4
[2017-08-16] MEDS: DUONEB NEB SCH ×2 (12:24→17:00)
[2017-08-16] MEDS: LEVAQUIN 500 MG in PREMIX 100 ML D5W 1 BAG IV SCH (12:39)
[2017-08-16] MEDS: SOLU-CORTEF 250 MG IVP SCH ×3 (12:39→20:53)
[2017-08-16] MEDS: ZESTORETIC 20-12.5 MG TAB PO SCH (12:39)
[2017-08-16] MEDS: TYLENOL PO PRN (13:30)
[2017-08-16] MEDS: PULMICORT 0.5 MG/2 ML NEB SCH (17:00)
[2017-08-17] MEDS ORDERED: ROBITUSSIN DM SYRUP PO PRN (02:06)
[2017-08-17] MEDS: TYLENOL PO PRN (02:26)
[2017-08-17] MEDS: PULMICORT 0.5 MG/2 ML NEB SCH ×2 (04:47→17:05)
[2017-08-17] MEDS: DUONEB NEB SCH ×5 (04:47→22:39)
[2017-08-17] MEDS: SOLU-CORTEF 250 MG IVP SCH ×3 (05:56→17:46)
--- NOTE | 2017-08-17 09:04 | PCM.PROG ---
Attending Provider: ATTENDING PROVIDER: Dr. MILES JACKSON This patient is seen with Sarah Nuñez, Nurse Practitioner. DATE OF SERVICE: 08/17/17 SUBJECTIVE: This 72 year old WHITE/ F was hospitalized 08/16/17. The patient is sitting on the side of the bed, alert. Shortness of breath very slightly improved. Still with pleuritic pain. Shortness of breath with talking. REVIEW OF SYSTEMS: CONSTITUTIONAL: Weakness. No night sweats. No malaise, lethargy. No fever or chills. HEENT: Eyes: No visual changes. No eye pain. No eye discharge. ENT: No runny nose. No epistaxis. No sinus pain. No odynophagia. No congestion. RESPIRATORY: Cough. Shortness of breath. No hemoptysis. CARDIOVASCULAR: No angina symptoms. No CHF symptoms. No atypical chest pain for CAD. No palpitations. No orthopnea.. GASTROINTESTINAL: No abdominal pain. No nausea or vomiting. No diarrhea or constipation. No hematemesis. No hematochezia. GENITOURINARY: No urgency. No frequency. No dysuria. No hematuria. No obstructive symptoms. No discharge. No pain. No significant abnormal bleeding. MUSCULOSKELETAL: No musculoskeletal pain; no joint swelling. NEUROLOGICAL: Awake, alert, oriented to time, place and person. No headache. No neck pain. No syncope. No seizures. No dizziness. PSYCHIATRIC: Not anxious. No depression. No suicidal thoughts. No homicidal thoughts. SKIN: No rash. No lesions. No wounds. ENDOCRINE: No unexplained weight loss. No weight gain. HEMATOLOGIC/LYMPHATIC: No anemia. No purpura. No petechiae. No prolonged or excessive bleeding. No palpable lymph nodes. PHYSICAL EXAMINATION: GENERAL: The patient is awake, alert and oriented, sitting in bed in no distress. VITAL SIGNS: Temperature 98.5 F, Pulse 81, Respiratory Rate 16, BP 127/67, Pulse Ox 97% HEENT: Head normocephalic, atraumatic. Eyes: Extraocular muscles are intact. Pupils are equal, round and reactive to light and accommodation. Ears: No lesions. Nose appeared normal. Throat: No exudate or erythema. NECK: Supple. No JVD, no carotid bruit. No lymphadenopathy or thyromegaly. LUNGS: Diminished breath sounds bilaterally with expiratory rub. Percussion note normal. Chest symmetrical. HEART: S1, S2, no S3. No murmurs. No cyanosis or clubbing. No ascites. Pulses: Dorsalis pedis and posterior tibial pulses +1 to +2 both sides. ABDOMEN: Soft. Non-tender. Bowel sounds active. No CVA tenderness. No mass felt. EXTREMITIES: No edema. Full range of motion of all extremities, equal. NEUROLOGIC: No focal deficit. Cranial nerves II through XII are grossly intact. No headache, no double vision or headache. SKIN: Not dry. Intact. Turgor-normal. LYMPHATIC: No palpable lymph nodes/no lymphedema. MUSCULOSKELETAL: Normal joints with no swelling. Muscle tone is normal. LAB REVIEW: 08/17/17 04:30 08/17/17 04:30 08/17/17 04:30: Sodium 138, Potassium 3.0 L, Chloride 102, Carbon Dioxide 24, Anion Gap 15.0, BUN 19 H, Creatinine 0.79, Estimated GFR (MDRD) 71.00, BUN/ Creatinine Ratio 24.05, Glucose 107, Calcium 10.5 H, Total Bilirubin 0.6, AST 25 , ALT 29, Alkaline Phosphatase 56, Total Protein 6.7, Albumin 3.2 L, Globulin 3.5, Albumin/Globulin Ratio 0.91 08/17/17 04:30: WBC 12.49 H, RBC 3.87 L, Hgb 11.6 L, Hct 34.3 L, MCV 88.6, MCH 30.0, MCHC 33.8, RDW Coeff of Cely 14.1, Plt Count 227, Immature Gran % (Auto) 0.3, Neut % (Auto) 71.5, Lymph % (Auto) 20.4, [place] % (Auto) 7.3, Eos % (Auto) 0.2, Baso % (Auto) 0.3, Immature Gran # (Auto) 0.0, Neut # (Auto) 8.9 H, Lymph # (Auto) 2.6, [place] # (Auto) 0.9, Eos # (Auto) 0.0, Baso # (Auto) 0.0 08/16/17 19:47: Total Creatine Kinase 281, CK-MB (CK-2) 1.7, CK-MB (CK-2) % 0.81693, Troponin I < 0.0100 08/16/17 14:50: Urine Color Yellow, Urine Clarity Clear, Urine pH 7.0, Ur Specific [place] 1.015, Urine Protein Negative, Urine Glucose (UA) Negative, Urine Ketones Trace, Urine Blood Trace-intact, Urine Nitrite Positive, Urine Bilirubin Negative, Urine Urobilinogen 4.0, Ur Leukocyte Esterase Negative, Urine Microscopic WBC 0-2, Ur Squamous Epith Cells Not present, Urine Bacteria 1 +, Urine Yeast 4+ 08/16/17 12:00: Sodium 138, Potassium 3.7, Chloride 102, Carbon Dioxide 25, Anion Gap 14.7, BUN 15, Creatinine 0.73, Estimated GFR (MDRD) 78.00, BUN/ Creatinine Ratio 20.54, Glucose 102, Calcium 10.5 H, Total Bilirubin 1.1, AST 30 , ALT 31, Alkaline Phosphatase 63, Total Creatine Kinase 335, CK-MB (CK-2) 2.2, CK-MB (CK-2) % 0.93307, Troponin I < 0.0100, Total Protein 7.2, Albumin 3.6, Globulin 3.6, Albumin/Globulin Ratio 1.00 08/16/17 12:00: WBC 13.44 H, RBC 4.11 L, Hgb 12.3, Hct 36.7 L, MCV 89.3, MCH 29.9, MCHC 33.5, RDW Coeff of Cely 14.1, Plt Count 213, Immature Gran % (Auto) 0.2, Neut % (Auto) 77.9, Lymph % (Auto) 14.3, [place] % (Auto) 6.5, Eos % (Auto) 0.7, Baso % (Auto) 0.4, Immature Gran # (Auto) 0.0, Neut # (Auto) 10.5 H, Lymph # (Auto) 1.9, [place] # (Auto) 0.9, Eos # (Auto) 0.1, Baso # (Auto) 0.1 08/16/17 12:00: B-Natriuretic Peptide 39 08/16/17 11:41: Puncture Site R brach, O2 Saturation 95.0, ABG pH 7.47 H, ABG pCO2 34.0 L, ABG pO2 72.0 L, ABG HCO3 24, ABG Total CO2 25, ABG Base Excess 1, Blade Test +, FiO2 % 21.0 ASSESSMENT: 1. ACUTE ASTHMATIC BRONCHITIS 2. PLEURITIC PAIN 3. HYPOKALEMIA 4. DEHYDRATION PLAN: 1. Increase Solu-Cortef is q.6hr 2. Toradol 30 mg q.8hr IV p.r.n. 3. Tussionex one teaspoons b.i.d. 4. D/C Robitussin 5. Chest x-ray 6. Potassium 40 mEq b.i.d. Plan and coordination of the patient's care discussed in the presence of Preschool Principal and nurse. CONDITION: Stable SCRIBED BY: FAUSTINO ANGUIANO Cattle Sticker scribed while in presence of service performed by Dr. Jackson/Sarah Nuñez APRN on 08/17/17 ([id number])
[2017-08-17] MEDS ORDERED: TUSSIONEX ONE (09:19)
[2017-08-17] MEDS: LEVAQUIN 500 MG in PREMIX 100 ML D5W 1 BAG IV SCH (09:22)
[2017-08-17] MEDS: ZESTORETIC 20-12.5 MG TAB PO SCH (09:22)
[2017-08-17] MEDS: ASPIRIN EC PO SCH (09:22)
[2017-08-17] MEDS: K-DUR PO SCH ×2 (09:22→16:55)
[2017-08-17] MEDS: TUSSIONEX PO SCH ×2 (09:23→20:33)
[2017-08-17] MEDS: TORADOL IVP PRN (09:27)
--- NOTE | 2017-08-17 15:03 | DI ---
Exam: Three x-rays of the chest. Comparison: CT chest performed 06/12/2016. Reason for exam: Cough, congestion. FINDINGS: No pneumothorax, pleural effusion, or focal consolidation. The cardiac silhouette appears prominent in size. There is tortuosity of the thoracic aorta. The imaged osseous structures appear grossly unremarkable without acute fracture. Impression: Cardiomegaly versus prominent cardiac fat pad without acute cardiopulmonary process.
[2017-08-18] MEDS: SOLU-CORTEF 250 MG IVP SCH ×4 (00:07→17:15)
[2017-08-18] MEDS: PULMICORT 0.5 MG/2 ML NEB SCH ×2 (05:09→17:09)
[2017-08-18] MEDS: DUONEB NEB SCH ×4 (05:09→22:30)
[2017-08-18] MEDS: TYLENOL PO PRN (05:40)
[2017-08-18] MEDS ORDERED: K-DUR PO SCH (08:00)
[2017-08-18] MEDS: ASPIRIN EC PO SCH (08:51)
[2017-08-18] MEDS: ZESTORETIC 20-12.5 MG TAB PO SCH (08:51)
[2017-08-18] MEDS: LEVAQUIN 500 MG in PREMIX 100 ML D5W 1 BAG IV SCH (08:52)
[2017-08-18] MEDS: TUSSIONEX PO SCH ×2 (08:52→20:13)
[2017-08-18] MEDS: MICRO-K CAP PO SCH (08:52)
[2017-08-18] MEDS: K-DUR PO SCH (08:53)
--- NOTE | 2017-08-18 09:45 | PCM.PROG ---
Attending Provider: ATTENDING PROVIDER: Dr. MILES JACKSON This patient is seen with Sarah Nuñez, Nurse Practitioner. DATE OF SERVICE: 08/18/17 SUBJECTIVE: This 72 year old WHITE/ F was hospitalized 08/16/17. The patient is sitting on the side of the bed. She states she slept better last night. Shortness of breath is slightly improved. Potassium level is normal today. REVIEW OF SYSTEMS: CONSTITUTIONAL: Fatigue/weakness. No night sweats. No malaise, lethargy. No fever or chills. HEENT: Eyes: No visual changes. No eye pain. No eye discharge. ENT: No runny nose. No epistaxis. No sinus pain. No odynophagia. No congestion. RESPIRATORY: Cough and congestion. No hemoptysis. No shortness of breath. CARDIOVASCULAR: No angina symptoms. No CHF symptoms. No atypical chest pain for CAD. No palpitations. No orthopnea.. GASTROINTESTINAL: No abdominal pain. No nausea or vomiting. No diarrhea or constipation. No hematemesis. No hematochezia. GENITOURINARY: No urgency. No frequency. No dysuria. No hematuria. No obstructive symptoms. No discharge. No pain. No significant abnormal bleeding. MUSCULOSKELETAL: No musculoskeletal pain; no joint swelling. NEUROLOGICAL: Awake, alert, oriented to time, place and person. No headache. No neck pain. No syncope. No seizures. No dizziness. PSYCHIATRIC: Not anxious. No depression. No suicidal thoughts. No homicidal thoughts. SKIN: No rash. No lesions. No wounds. ENDOCRINE: No unexplained weight loss. No weight gain. HEMATOLOGIC/LYMPHATIC: No anemia. No purpura. No petechiae. No prolonged or excessive bleeding. No palpable lymph nodes. PHYSICAL EXAMINATION: GENERAL: The patient is awake, alert and oriented, sitting in bed in no distress. VITAL SIGNS: Temperature 98.0 F, Pulse 90, Respiratory Rate 24, BP 140/66, Pulse Ox 95% HEENT: Head normocephalic, atraumatic. Eyes: Extraocular muscles are intact. Pupils are equal, round and reactive to light and accommodation. Ears: No lesions. Nose appeared normal. Throat: No exudate or erythema. NECK: Supple. No JVD, no carotid bruit. No lymphadenopathy or thyromegaly. LUNGS: Diminished breath sounds with improved bilateral wheeze. Percussion note normal. Chest symmetrical. HEART: S1, S2, no S3. No murmurs. No cyanosis or clubbing. No ascites. Pulses: Dorsalis pedis and posterior tibial pulses +1 to +2 both sides. ABDOMEN: Soft. Non-tender. Bowel sounds active. No CVA tenderness. No mass felt. EXTREMITIES: No edema. Full range of motion of all extremities, equal. NEUROLOGIC: No focal deficit. Cranial nerves II through XII are grossly intact. No headache, no double vision or headache. SKIN: Not dry. Intact. Turgor-normal. LYMPHATIC: No palpable lymph nodes/no lymphedema. MUSCULOSKELETAL: Normal joints with no swelling. Muscle tone is normal. LAB REVIEW: 08/18/17 04:45 08/18/17 04:45 08/18/17 04:45: Sodium 137, Potassium 4.0, Chloride 104, Carbon Dioxide 23, Anion Gap 14.0, BUN 21 H, Creatinine 0.84, Estimated GFR (MDRD) 66.00, BUN/ Creatinine Ratio 25.00, Glucose 163 H, Calcium 10.8 H, Total Bilirubin 0.4, AST 21, ALT 30, Alkaline Phosphatase 53, Total Protein 6.7, Albumin 3.2 L, Globulin 3.5, Albumin/Globulin Ratio 0.91 08/18/17 04:45: WBC 13.12 H, RBC 3.92 L, Hgb 11.9 L, Hct 34.9 L, MCV 89.0, MCH 30.4, MCHC 34.1, RDW Coeff of Cely 14.2, Plt Count 243, Immature Gran % (Auto) 0.9, Neut % (Auto) 85.8, Lymph % (Auto) 9.8 L, [place] % (Auto) 3.4, Eos % (Auto) 0.0, Baso % (Auto) 0.1, Immature Gran # (Auto) 0.1, Neut # (Auto) 11.3 H, Lymph # (Auto) 1.3, [place] # (Auto) 0.5, Eos # (Auto) 0.0, Baso # (Auto) 0.0 ASSESSMENT: 1. ACUTE ASTHMATIC BRONCHITIS 2. PLEURITIC PAIN 3. HYPOKALEMIA, RESOLVED 4. DEHYDRATION, RESOLVED PLAN: 1. Continue Steroids q.6hr 2. Potassium 10 mEq daily Plan and coordination of the patient's care discussed in the presence of Import And Export Clerk and nurse. CONDITION: Stable SCRIBED BY: FAUSTINO ANGUIANO Certified Nursing Attendant scribed while in presence of service performed by Dr. Jackson/Sarah Nuñez APRN on 08/18/17 ([id number])
[2017-08-18] MEDS: TORADOL IVP PRN ×2 (12:28→22:12)
--- NOTE | 2017-08-18 13:33 | CT ---
EXAM: CT chest without contrast. HISTORY: Cough, chest congestion. COMPARISON: Radiograph [address] 06/12/2016. TECHNIQUE: Multiple axial images of the chest were obtained without intravenous contrast. Images we re reformatted in the sagittal and coronal planes. FINDINGS: Heart size is normal. No pericardial effusion identified. Atherosclerotic calcifications are present. Evaluation for lymphadenopathy is limited by lack of intravenous contrast. Calcified subcarinal lymph nodes are present. Clustered ground-glass and nodular densities in the perihilar right upper lobe on axial images 26 thr ough 28 are new with the largest nodule measuring 0.4 cm. No consolidation, pleural effusion or pneu mothorax identified. Limited images of the upper abdomen demonstrate a stable 1.3 cm posterior right hepatic lobe lesion a nd hyperdense left renal cortical lesions which are stable. Degenerative changes are present in the spine. IMPRESSION: New right upper lobe micronodules most likely infectious or inflammatory in nature. Consider follow- up CT in 3-6 months to assess for resolution.
[2017-08-18] MEDS: PROTONIX PO SCH (17:15)
[2017-08-19] MEDS: SOLU-CORTEF 250 MG IVP SCH ×5 (00:18→23:43)
[2017-08-19] MEDS: PULMICORT 0.5 MG/2 ML NEB SCH ×2 (05:06→17:09)
[2017-08-19] MEDS: DUONEB NEB SCH ×4 (05:06→22:00)
[2017-08-19] MEDS: PROTONIX PO SCH ×2 (05:36→16:07)
[2017-08-19] MEDS: LEVAQUIN 500 MG in PREMIX 100 ML D5W 1 BAG IV SCH (08:09)
[2017-08-19] MEDS: TUSSIONEX PO SCH ×2 (08:09→20:35)
[2017-08-19] MEDS: ZESTORETIC 20-12.5 MG TAB PO SCH (08:09)
[2017-08-19] MEDS: MICRO-K CAP PO SCH (08:09)
[2017-08-19] MEDS: ASPIRIN EC PO SCH (08:14)
[2017-08-19] MEDS: MUCINEX PO SCH ×2 (09:47→20:36)
[2017-08-19] MEDS: TESSALON PERLES PO SCH ×3 (09:47→20:36)
[2017-08-19] MEDS ORDERED: TUSSIONEX PO SCH (10:00)
[2017-08-19] MEDS: TORADOL IVP PRN ×2 (10:54→21:56)
[2017-08-20] MEDS: DUONEB NEB SCH ×4 (04:50→22:48)
[2017-08-20] MEDS: PULMICORT 0.5 MG/2 ML NEB SCH ×2 (04:50→18:40)
[2017-08-20] MEDS: SOLU-CORTEF 250 MG IVP SCH ×3 (05:22→17:11)
[2017-08-20] MEDS: PROTONIX PO SCH ×2 (05:29→16:48)
[2017-08-20] MEDS: TORADOL IVP PRN ×3 (07:06→22:33)
[2017-08-20] MEDS: MUCINEX PO SCH ×2 (08:36→20:25)
[2017-08-20] MEDS: TUSSIONEX PO SCH ×2 (08:36→20:25)
[2017-08-20] MEDS: ASPIRIN EC PO SCH (08:36)
[2017-08-20] MEDS: LEVAQUIN 500 MG in PREMIX 100 ML D5W 1 BAG IV SCH (08:36)
[2017-08-20] MEDS: TESSALON PERLES PO SCH ×3 (08:36→20:26)
[2017-08-20] MEDS: MICRO-K CAP PO SCH (08:36)
[2017-08-20] MEDS: ZESTORETIC 20-12.5 MG TAB PO SCH (08:36)
[2017-08-20] MEDS: TYLENOL PO PRN (12:28)
[2017-08-21] MEDS: SOLU-CORTEF 250 MG IVP SCH ×5 (01:47→23:46)
[2017-08-21] MEDS: PULMICORT 0.5 MG/2 ML NEB SCH ×2 (05:09→16:55)
[2017-08-21] MEDS: DUONEB NEB SCH (05:09)
[2017-08-21] MEDS: PROTONIX PO SCH ×2 (05:32→16:22)
[2017-08-21] MEDS: TORADOL IVP PRN ×2 (07:33→23:38)
[2017-08-21] MEDS: LEVAQUIN 500 MG in PREMIX 100 ML D5W 1 BAG IV SCH (08:50)
[2017-08-21] MEDS: MICRO-K CAP PO SCH (08:50)
[2017-08-21] MEDS: MUCINEX PO SCH ×2 (08:50→20:43)
[2017-08-21] MEDS: ZESTORETIC 20-12.5 MG TAB PO SCH (08:50)
[2017-08-21] MEDS: ASPIRIN EC PO SCH (08:51)
[2017-08-21] MEDS: TESSALON PERLES PO SCH ×3 (08:51→20:43)
[2017-08-21] MEDS: TUSSIONEX PO SCH ×2 (08:51→20:42)
--- NOTE | 2017-08-21 10:55 | PCM.PROG ---
Attending Provider: ATTENDING PROVIDER: Dr. MILES JACKSON This patient is seen with Sarah Nuñez, Nurse Practitioner. DATE OF SERVICE: 08/21/17 SUBJECTIVE: This 72 year old WHITE/ F was hospitalized 08/16/17. The patient is still short of breath. She is unable to talk without becoming short of breath and coughing. Cough slightly more productive. She is sleeping some better. She is still unable to get up and ambulate without shortness of breath and coughing. REVIEW OF SYSTEMS: CONSTITUTIONAL: No night sweats. No fatigue, malaise, lethargy. No fever or chills. HEENT: Eyes: No visual changes. No eye pain. No eye discharge. ENT: No runny nose. No epistaxis. No sinus pain. No odynophagia. No congestion. RESPIRATORY: Cough with wheeze and shortness of breath. No hemoptysis. CARDIOVASCULAR: No angina symptoms. No CHF symptoms. No atypical chest pain for CAD. No palpitations. No orthopnea.. GASTROINTESTINAL: No abdominal pain. No nausea or vomiting. No diarrhea or constipation. No hematemesis. No hematochezia. GENITOURINARY: No urgency. No frequency. No dysuria. No hematuria. No obstructive symptoms. No discharge. No pain. No significant abnormal bleeding. MUSCULOSKELETAL: No musculoskeletal pain; no joint swelling. NEUROLOGICAL: Awake, alert, oriented to time, place and person. No headache. No neck pain. No syncope. No seizures. No dizziness. PSYCHIATRIC: Not anxious. No depression. No suicidal thoughts. No homicidal thoughts. SKIN: No rash. No lesions. No wounds. ENDOCRINE: No unexplained weight loss. No weight gain. HEMATOLOGIC/LYMPHATIC: No anemia. No purpura. No petechiae. No prolonged or excessive bleeding. No palpable lymph nodes. PHYSICAL EXAMINATION: GENERAL: The patient is awake, alert and oriented, sitting in bed in no distress. VITAL SIGNS: Temperature 97.6 F, Pulse 72, Respiratory Rate 20, BP 139/71, Pulse Ox 96% HEENT: Head normocephalic, atraumatic. Eyes: Extraocular muscles are intact. Pupils are equal, round and reactive to light and accommodation. Ears: No lesions. Nose appeared normal. Throat: No exudate or erythema. NECK: Supple. No JVD, no carotid bruit. No lymphadenopathy or thyromegaly. LUNGS: Severely diminished breath sounds bilaterally with inspiratory and expiratory wheeze. Percussion note normal. Chest symmetrical. HEART: S1, S2, no S3. No murmurs. No cyanosis or clubbing. No ascites. Pulses: Dorsalis pedis and posterior tibial pulses +1 to +2 both sides. ABDOMEN: Soft. Non-tender. Bowel sounds active. No CVA tenderness. No mass felt. EXTREMITIES: Right leg edema. Full range of motion of all extremities, equal. NEUROLOGIC: No focal deficit. Cranial nerves II through XII are grossly intact. No headache, no double vision or headache. SKIN: Not dry. Intact. Turgor-normal. LYMPHATIC: No palpable lymph nodes/no lymphedema. MUSCULOSKELETAL: Normal joints with no swelling. Muscle tone is normal. LAB REVIEW: 08/21/17 04:15 08/21/17 04:15 08/21/17 04:15: Sodium 139, Potassium 4.0, Chloride 107, Carbon Dioxide 22 L, Anion Gap 14.0, BUN 35 H, Creatinine 1.06, Estimated GFR (MDRD) 51.00, BUN/ Creatinine Ratio 33.01, Glucose 123 H, Calcium 9.9, Total Bilirubin 0.2, AST 22 , ALT 37, Alkaline Phosphatase 43 L, Total Protein 5.8, Albumin 2.9 L, Globulin 2.9, Albumin/Globulin Ratio 1.00 08/21/17 04:15: WBC 12.26 H, RBC 3.73 L, Hgb 11.2 L, Hct 33.3 L, MCV 89.3, MCH 30.0, MCHC 33.6, RDW Coeff of Cely 14.5, Plt Count 213, Immature Gran % (Auto) 2.6, Neut % (Auto) 77.9, Lymph % (Auto) 13.1, [place] % (Auto) 6.2, Eos % (Auto) 0.0, Baso % (Auto) 0.2, Immature Gran # (Auto) 0.3, Neut # (Auto) 9.5 H, Lymph # (Auto) 1.6, [place] # (Auto) 0.8, Eos # (Auto) 0.0, Baso # (Auto) 0.0 ASSESSMENT: 1. ACUTE ASTHMATIC BRONCHITIS 2. PLEURITIC PAIN 3. HYPOKALEMIA, RESOLVED 4. DEHYDRATION, RESOLVED PLAN: 1. Continue IV Levaquin 2. Xopenex q.6 3. D/C Duoneb Plan and coordination of the patient's care discussed in the presence of Basket Grader and nurse. CONDITION: Stable SCRIBED BY: FAUSTINO ANGUIANO Director International scribed while in presence of service performed by Dr. Jackson/Sarah Nuñez APRN on 08/21/17 ([id number])
[2017-08-21] MEDS: XOPENEX 1.25 MG NEB SCH ×3 (11:06→23:20)
--- NOTE | 2017-08-21 15:21 | PN ---
DATE OF SERVICE: 08/18/17 SUBJECTIVE: The patient has severe chronic lung disease, wheezing is much less. The patient still coughs. Tussionex is helping. She is steroids, side effects of steroids with Cataract, osteoporosis and avascular necrosis of femoral head all discussed. The patient was seen and examined with Nurse Practitioner. TIME SPENT: More than 30 minutes. Plan and coordination of the patient's care discussed in the presence of nurse. BRAED[place]
--- NOTE | 2017-08-21 15:31 | PN ---
DATE OF SERVICE: 08/19/17 SUBJECTIVE: 72year old white female hospitalized with cough and congestion, pneumonitis and laryngitis. The patient's asthmatic bronchitis seems to be somewhat better but still she has croupy cough. REVIEW OF SYSTEMS: CONSTITUTIONAL: No night sweats. No fatigue, malaise, lethargy. No fever or chills. HEENT: Eyes: No visual changes. No eye pain. No eye discharge. ENT: No runny nose. No epistaxis. No sinus pain. No sore throat. No odynophagia. No congestion. RESPIRATORY: Croupy cough, no congestion. No hemoptysis. Shortness of breath on exertion. CARDIOVASCULAR: No angina symptoms. No CHF symptoms. No atypical chest pain for CAD. No palpitations. No orthopnea. GASTROINTESTINAL: No abdominal pain. No nausea or vomiting. No diarrhea or constipation. No hematemesis. No hematochezia. Appetite is normal GENITOURINARY: No urgency. No frequency. No dysuria. No hematuria. No obstructive symptoms. No discharge. No pain. No significant abnormal bleeding. MUSCULOSKELETAL: No musculoskeletal pain; no joint swelling. NEUROLOGICAL: No headache. No neck pain. No syncope. No seizures. No dizziness. PSYCHIATRIC: Not anxious. No depression. No suicidal thoughts. No homicidal thoughts. SKIN: No rash. No lesions. No wounds. ENDOCRINE: No unexplained weight loss. No weight gain. HEMATOLOGIC/LYMPHATIC: No anemia. No purpura. No petechiae. No prolonged or excessive bleeding. No palpable lymph nodes. PHYSICAL EXAMINATION: GENERAL: The patient is oriented to time, place and person. VITAL SIGNS: Temperature 97.9, pulse 84, respiratory rate 18, blood pressure 119/17 and pulse ox 95%. HEENT: Head normocephalic, atraumatic. Eyes: Extraocular muscles are intact. Pupils are equal, round and reactive to light and accommodation. Ears: No lesions. Nose appeared normal. Throat: No exudate or erythema. NECK: Supple. No JVD, no carotid bruit. No lymphadenopathy or thyromegaly. LUNGS: Decreased breath sounds with mild wheeze. Clear to auscultation. Percussion note normal. Chest symmetrical. HEART: S1, S2, no S3. No murmurs. No cyanosis or clubbing. No ascites. Pulses: Dorsalis pedis and posterior tibial pulses +1 to +2 both sides. ABDOMEN: Soft. Nontender. Bowel sounds active. No CVA tenderness. No mass felt. EXTREMITIES: No edema. Full range of motion of all extremities, equal. NEUROLOGIC: No focal deficit. Cranial nerves II through XII are grossly intact. No headache, no double vision or headache. SKIN: Not dry. Intact. Turgor - normal. LYMPHATIC: No palpable lymph nodes/no lymphedema. MUSCULOSKELETAL: Normal joints with no swelling. Muscle tone is normal. LABS: Hgb 10.9, hct 32, WBC 13,000 normal differential, creatinine 0.9, BUN 30, potassium 4.8 and glucose 130. ASSESSMENT: 1. Acute asthmatic bronchitis 2. Chronic lung disease 3. Morbid obesity with BMI of 40 4. Hypertension PLAN: 1. Continue steroids 2. NEBS treatment 3. Tussionex needs to be increased to one teaspoon full three times a day 4. Tessalon Perles 200 three times a day for cough, dry hacky cough, needs to be suppressed. 5. Steroids side effects discussed including avascular necrosis of femoral heads CONDITION: Stable TIME SPENT: More than 30 minutes. Plan and coordination of the patient's care discussed in the presence of nurse. BRAEDEN
--- NOTE | 2017-08-21 15:34 | PN ---
DATE OF SERVICE: 08/20/17 SUBJECTIVE: The patient was hospitalized with acute bronchitis and croupy cough. The patient 's cough is becoming more wet and productive. She is feeling somewhat better. She is on Tessalon Perles, Tussionex and NEBS treatment, antibiotics and steroids. PHYSICAL EXAMINATION: GENERAL: The patient is oriented to time, place and person. HEENT: Head normocephalic, atraumatic. Eyes: Extraocular muscles are intact. Pupils are equal, round and reactive to light and accommodation. Ears: No lesions. Nose appeared normal. Throat: No exudate or erythema. NECK: Supple. No JVD, no carotid bruit. No lymphadenopathy or thyromegaly. LUNGS: Decreased breath sounds with mild wheeze. Clear to auscultation. Percussion note normal. Chest symmetrical. HEART: S1, S2, no S3. No murmurs. No cyanosis or clubbing. No ascites. Pulses: Dorsalis pedis and posterior tibial pulses +1 to +2 both sides. ABDOMEN: Soft. Nontender. Bowel sounds active. No CVA tenderness. No mass felt. EXTREMITIES: No edema. Full range of motion of all extremities, equal. NEUROLOGIC: No focal deficit. Cranial nerves II through XII are grossly intact. No headache, no double vision or headache. SKIN: Not dry. Intact. Turgor - normal. LYMPHATIC: No palpable lymph nodes/no lymphedema. MUSCULOSKELETAL: Normal joints with no swelling. Muscle tone is normal. CONDITION: improving and bronchitis seems to be slowly resolving TIME SPENT: More than 30 minutes. Plan and coordination of the patient's care discussed in the presence of nurse. BRAEDEN
[2017-08-22] MEDS: SOLU-CORTEF 250 MG IVP SCH (05:11)
[2017-08-22] MEDS: PROTONIX PO SCH (05:39)
[2017-08-22] MEDS: PULMICORT 0.5 MG/2 ML NEB SCH (05:40)
[2017-08-22] MEDS: XOPENEX 1.25 MG NEB SCH (05:40)
[2017-08-22] MEDS: LEVAQUIN 500 MG in PREMIX 100 ML D5W 1 BAG IV SCH (09:00)
[2017-08-22] MEDS: MUCINEX PO SCH (09:00)
[2017-08-22] MEDS: TESSALON PERLES PO SCH (09:00)
[2017-08-22] MEDS: ZESTORETIC 20-12.5 MG TAB PO SCH (09:00)
[2017-08-22] MEDS: ASPIRIN EC PO SCH (09:00)
[2017-08-22] MEDS: MICRO-K CAP PO SCH (09:00)
[2017-08-22] MEDS: TUSSIONEX PO SCH (09:01)
[2017-08-22] MEDS: TYLENOL PO PRN (09:12)
--- NOTE | 2017-08-22 09:59 | PCM.PROG ---
Attending Provider: ATTENDING PROVIDER: Dr. MILES JACKSON This patient is seen with Sarah Nuñez, Nurse Practitioner. DATE OF SERVICE: 08/22/17 SUBJECTIVE: This 72 year old WHITE/ F was hospitalized 08/16/17. The patient is sitting on the side of the bed, alert. Cough becoming slightly more productive. Shortness of breath is slowly improving. The patient will be admitted to swing bed for IV steroids and antibiotics today. The patient is agreeable. The patient is still unable to be up and about without extreme shortness of breath and coughing. REVIEW OF SYSTEMS: CONSTITUTIONAL: Weakness. No night sweats. No malaise, lethargy. No fever or chills. HEENT: Eyes: No visual changes. No eye pain. No eye discharge. ENT: No runny nose. No epistaxis. No sinus pain. No odynophagia. No congestion. RESPIRATORY: Shortness of breath and cough, congestion. No hemoptysis. CARDIOVASCULAR: No angina symptoms. No CHF symptoms. No atypical chest pain for CAD. No palpitations. No orthopnea.. GASTROINTESTINAL: No abdominal pain. No nausea or vomiting. No diarrhea or constipation. No hematemesis. No hematochezia. GENITOURINARY: No urgency. No frequency. No dysuria. No hematuria. No obstructive symptoms. No discharge. No pain. No significant abnormal bleeding. MUSCULOSKELETAL: No musculoskeletal pain; no joint swelling. NEUROLOGICAL: Awake, alert, oriented to time, place and person. No headache. No neck pain. No syncope. No seizures. No dizziness. PSYCHIATRIC: Not anxious. No depression. No suicidal thoughts. No homicidal thoughts. SKIN: No rash. No lesions. No wounds. ENDOCRINE: No unexplained weight loss. No weight gain. HEMATOLOGIC/LYMPHATIC: No anemia. No purpura. No petechiae. No prolonged or excessive bleeding. No palpable lymph nodes. PHYSICAL EXAMINATION: GENERAL: The patient is awake, alert and oriented, sitting in bed in no distress. VITAL SIGNS: Temperature 97.8 F, Pulse 64, Respiratory Rate 16, BP 142/76, Pulse Ox 98% HEENT: Head normocephalic, atraumatic. Eyes: Extraocular muscles are intact. Pupils are equal, round and reactive to light and accommodation. Ears: No lesions. Nose appeared normal. Throat: No exudate or erythema. NECK: Supple. No JVD, no carotid bruit. No lymphadenopathy or thyromegaly. LUNGS: Bilateral rhonchi with faint expiratory and inspiratory wheeze. right lower extremity edemaClear to auscultation. Percussion note normal. Chest symmetrical. HEART: S1, S2, no S3. No murmurs. No cyanosis or clubbing. No ascites. Pulses: Dorsalis pedis and posterior tibial pulses +1 to +2 both sides. ABDOMEN: Soft. Non-tender. Bowel sounds active. No CVA tenderness. No mass felt. EXTREMITIES: Right lower extremity edema. Full range of motion of all extremities, equal. NEUROLOGIC: No focal deficit. Cranial nerves II through XII are grossly intact. No headache, no double vision or headache. SKIN: Not dry. Intact. Turgor-normal. LYMPHATIC: No palpable lymph nodes/no lymphedema. MUSCULOSKELETAL: Normal joints with no swelling. Muscle tone is normal. LAB REVIEW: 08/22/17 05:00 08/22/17 05:00 08/22/17 05:00: Sodium 139, Potassium 4.1, Chloride 106, Carbon Dioxide 26, Anion Gap 11.1, BUN 31 H, Creatinine 0.86, Estimated GFR (MDRD) 65.00, BUN/ Creatinine Ratio 36.04, Glucose 142 H, Calcium 9.6, Total Bilirubin 0.3, AST 19 , ALT 36, Alkaline Phosphatase 42 L, Total Protein 5.4 L, Albumin 2.8 L, Globulin 2.6, Albumin/Globulin Ratio 1.08 08/22/17 05:00: WBC 10.93 H, RBC 3.75 L, Hgb 11.3 L, Hct 33.9 L, MCV 90.4, MCH 30.1, MCHC 33.3, RDW Coeff of Cely 14.5, Plt Count 212, Immature Gran % (Auto) 3.7, Neut % (Auto) 80.1, Lymph % (Auto) 11.5, [place] % (Auto) 4.4, Eos % (Auto) 0.0, Baso % (Auto) 0.3, Immature Gran # (Auto) 0.4, Neut # (Auto) 8.8 H, Lymph # (Auto) 1.3, [place] # (Auto) 0.5, Eos # (Auto) 0.0, Baso # (Auto) 0.0 ASSESSMENT: 1. ACUTE ASTHMATIC BRONCHITIS 2. PLEURITIC PAIN 3. HYPOKALEMIA, RESOLVED 4. DEHYDRATION, RESOLVED PLAN: 1. Will decrease steroids tomorrow 2. D/C telemetry 3. Admit to swing bed Plan and coordination of the patient's care discussed in the presence of Business Planning Analyst and nurse. CONDITION: Stable SCRIBED BY: FAUSTINO ANGUIANO Production Designer scribed while in presence of service performed by Dr. Jackson/Sarah Nuñez APRN on 08/22/17 ([id number])
[2017-08-22 10:41] VITALS: BP 142/66; TEMP 97.4
--- NOTE | 2017-08-22 13:52 | PN ---
DATE OF SERVICE: 08/21/17 SUBJECTIVE: 72-year-old white female was seen and examined with the nurse practitioner. PHYSICAL EXAMINATION: HEENT: Head normocephalic, atraumatic. Eyes: Extraocular muscles are intact. Pupils are equal, round and reactive to light and accommodation. Ears: No lesions. Nose appeared normal. Throat: No exudate or erythema. NECK: Supple. No JVD, no carotid bruit. No lymphadenopathy or thyromegaly. LUNGS: Good air entry with mild expiratory wheeze. She still has croupy cough. HEART: S1, S2, no S3. No murmurs. No cyanosis or clubbing. No ascites. Pulses: Dorsalis pedis and posterior tibial pulses +1 to +2 both sides. ABDOMEN: Soft. Nontender. Bowel sounds active. No CVA tenderness. No mass felt. EXTREMITIES: No edema. Full range of motion of all extremities, equal. NEUROLOGIC: No focal deficit. Cranial nerves II through XII are grossly intact. No headache, no double vision or headache. SKIN: Not dry. Intact. Turgor - normal. LYMPHATIC: No palpable lymph nodes/no lymphedema. MUSCULOSKELETAL: Normal joints with no swelling. Muscle tone is normal. PLAN: 1. The patient will be continued on Tessalon Perles, Tussionex, steroids, antibiotics. TIME SPENT: More than 30 minutes. Plan and coordination of the patient's care discussed in the presence of nurse. BRAEDEN
--- NOTE | 2017-08-23 14:45 | PN ---
DATE OF SERVICE: 08/17/17 SUBJECTIVE: The patient was hospitalized with acute exacerbation of COPD. The patient had wheezing. She has been on high dose of steroids. Her condition has improved some. Cardiovascular status is stable. No evidence of CHF. The patient was seen and examined with Nurse Practitioner. PHYSICAL EXAMINATION: HEENT: Head normocephalic, atraumatic. Eyes: Extraocular muscles are intact. Pupils are equal, round and reactive to light and accommodation. Ears: No lesions. Nose appeared normal. Throat: No exudate or erythema. NECK: Supple. No JVD, no carotid bruit. No lymphadenopathy or thyromegaly. LUNGS: Decreased breath sounds with less wheezing. Clear to auscultation. Percussion note normal. Chest symmetrical. HEART: S1, S2, no S3. No murmurs. No cyanosis or clubbing. No ascites. Pulses: Dorsalis pedis and posterior tibial pulses +1 to +2 both sides. ABDOMEN: Soft. Nontender. Bowel sounds active. No CVA tenderness. No mass felt. EXTREMITIES: No edema. Full range of motion of all extremities, equal. NEUROLOGIC: No focal deficit. Cranial nerves II through XII are grossly intact. No headache, no double vision or headache. SKIN: Not dry. Intact. Turgor - normal. LYMPHATIC: No palpable lymph nodes/no lymphedema. MUSCULOSKELETAL: Normal joints with no swelling. Muscle tone is normal. PLAN: 1. Continue NEBS and steroids. TIME SPENT: More than 30 minutes. Plan and coordination of the patient's care discussed in the presence of nurse. BRAEDEN
--- NOTE | 2017-08-23 15:11 | HP ---
DATE OF SERVICE: 08/16/17 REASON FOR HOSPITALIZATION/HISTORY OF PRESENT ILLNESS: Three weeks- two office visits with coughing and congestion with yellowish sputum. Was on B 12 injection and steroids x 2. Worsening of cough with wheezing. No symptoms of CHF or CAD. PAST MEDICAL HISTORY: LVH Sleep Apnea Obesity Osteoarthritis PAST SURGICAL HISTORY: 1975 REVIEW OF SYSTEMS: CONSTITUTIONAL: No fever, Fatigue. HEENT: No sinus drainage, Sore throat. RESPIRATORY: Cough, no congestion. CARDIOVASCULAR: Atypical chest pain for coronary artery disease. No angina, CHF symptoms, palpitations or shortness of breath. Pleuritic chest pain. GASTROINTESTINAL: No melena or abdominal pain. No GERD. GENITOURINARY: No hematuria, no prostatism, no polyuria. RN FACULTY: No blackout, no dizziness, no headache, no double vision. MUSCULOSKELETAL: Osteoarthritis pain, no joint swelling. ENDOCRINE: No weight loss, no weight gain. SKIN: Not dry, no rash. PSYCHIATRIC: Anxious, no depression, no suicidal thoughts, no homicidal thoughts. SOCIAL HISTORY: Marital Status: . Alcohol Usage: No. Tobacco Usage: No. FAMILY HISTORY: Father - treated from [employer] for arthritis Mother CA cervix. MEDICATIONS: Aspirin 81mg PO daily Lisinopril 20-12.5mg twice a day Pravachol 40mg PO PRN ALLERGIES: Penicillin Lipitor Crestor Daypro Simvastatin Hyzaar Valium Celebrex PHYSICAL EXAMINATION: V/S: Pulse 82, blood pressure 140/82, temperature 98, Oxygen saturation 97%. GENERAL APPEARANCE: Oriented times three. HEENT: Normal. NECK: No JVP, no bruits. RESPIRATORY: Wheezing. CARDIOVASCULAR: S1, S2, no S3, no murmurs. No cyanosis, clubbing. No ascites. GI/ABDOMEN: No tenderness. Bowel sounds are active. EXTREMITIES: edema, pulses +1, equal. RN FACULTY: Deep tendon reflexes, sensory, motor and gait all normal. RECTAL: Refused/PELVIC: Advised yearly, Mammogram: Refused and Colocare: Refused. ASSESSMENT: 1. Acute asthmatic bronchitis 2. Hypertension 3. Dyslipidemia 4. LVH 5. Sleep apnea 6. Obesity 7. Osteoarthritis knee 8. Cervical muscle spasm 9. Right hip osteoarthritis 10.Chronic bronchitis PLAN: 1. Routine telemetry orders 2. Solu-Cortef 125mg IV Q 8 hours 3. DUO NEBS four times a dya 4. Pulmicort twice a day NEBS 5. Levaquin 500mg IV Q 24 hours 6. Sputum for culture and sensitivity 7. Blood culture and sensitivity 8. Daily CBC and CMP 9. ABG today 10.Lisinopril/ hydrochlorothiazide 20/12.5 twice a day 11.Baby aspirin 81mg Po daily 12.CT scan of chest with contrast. TIME SPENT: More than 70 minutes. MTDD
--- NOTE | 2017-08-28 11:39 | PN ---
DATE OF SERVICE: 08/22/17 SUBJECTIVE: The patient will be discharged from regular and admitted to swing bed. The patient was seen and examined with the nurse practitioner. The patient's condition is stable. She has asthmatic bronchitis, to be treated with nebs treatment. Condition improving. TIME SPENT: More than 30 minutes. Plan and coordination of the patient's care discussed in the presence of nurse. BRAEDEN
--- NOTE | 2017-08-28 11:41 | PN ---
CODING FOR BILLING 08/16/17 LEVEL 5 08/17/17 INTERMEDIATE 08/18/17 INTERMEDIATE 08/19/17 INTERMEDIATE 08/20/17 INTERMEDIATE 08/21/17 INTERMEDIATE 08/22/17 ADMISSION DAY TO SWING BED [facility]
--- NOTE | 2017-08-30 11:48 | DS ---
DATE OF SERVICE: 08/22/17 FINAL DIAGNOSIS: 1. ASTHMATIC BRONCHITIS 2. SHORTNESS OF BREATH 3. GENERALIZED WEAKNESS 4. HYPERTENSION DISCHARGE INSTRUCTIONS: Will admit to swing bed. MEDICATIONS AT DISCHARGE FROM ACUTE: Lisinopril/Hydrochlorothiazide one each p.o. b.i.d. Pravastatin 40 mg p.o. daily p.r.n. Aspirin 81 mg p.o. daily NEW PRESCRIPTIONS: N/A DIET INSTRUCTIONS: Heart Healthy ACTIVITY: As patient tolerates SMOKING: Former smoker - quit DISEASE SPECIFIC EDUCATION: Swing bed admission, patient agreeable HOSPITAL COURSE: This is a 72-year-old white female who was a direct admit from our office. She had been treated as an outpatient for cough, congestion and wheezing. She has a history of asthma. On day of admission she presented with worsening shortness of breath despite being on Biaxin and Prednisone 20 mg twice daily and using inhalers. She was admitted, placed on IV steroids, Solu-Cortef 125 mg IV q.8hr. Levaquin 500 mg IV daily. Started on IV fluids, NS at 75 cc/hr, started on Pulmicort neb treatments b.i.d. along with Duonebs q.4 to 6 hr. After the first 24 hours, the day following admission, she was still extremely wheezy and short of breath. She was unable to rest due to constant bronchospasm and coughing. I increased her steroids to Solu-Cortef 125 mg IV q.6hr. She is also unable to sleep. We started her on Tussionex one teaspoon b.i.d. She was also experiencing chest tightness and pleuritic type pain due to all the coughing and musculoskeletal inflammation. We started Toradol 30 mg IV q.8hr p.r.n. The increase in steroids helped slightly however she still was able to produce any sputum with her cough. After two days we switched from Duonebs to Xopenex q.6hr. This has made some significant improvement. On day of discharge, she is able to be up and about but is still extremely short of breath. She has required oxygen off and on. Her labs are stable. She is stable however we have been unable to wean IV steroids due to her history of severe asthma and the previous spell, on oral steroids. We will admit her to swing bed for further treatment of that asthmatic bronchitis with IV Solu-Cortef at 125 mg q.8hr along with IV Levaquin 500 mg daily. Her chest x-ray revealed changes associated with inflammation, asthma and hyperinflation. No pneumonia. Her labs have been stable though BUN was elevated on admission in the 30s indicating slight dehydration. Her IV fluids were stopped after 48 hours. Will discharge her to swing bed for further treatment. TIME SPENT: More than 60 minutes. MTDD
== END 2017-08-22 11:05 | disposition swing bed (61) | DRG 191 ==
LOC: MEDSURG A 11:13
PROVIDERS: ADMIT Internal Medicine; ATTEND Internal Medicine
DX: J44.1 Chronic obstructive pulmonary disease with (acute) exacerbation (principal); Z68.41 Body mass index [BMI] 40.0-44.9, adult; R06.02 Shortness of breath; R05 Cough; R53.1 Weakness; R07.81 Pleurodynia; I10 Essential (primary) hypertension; E87.6 Hypokalemia; E86.0 Dehydration; J04.0 Acute laryngitis; E66.01 Morbid (severe) obesity due to excess calories; Z79.899 Other long term (current) drug therapy
CPT/HCPCS: 36415; 80053; 81001; 82550; 82553; 82803; 83880; 84484; 85025; 87070; 87086; 93005; 93010; 94640

== ENCOUNTER 2017-08-22 11:24 | Inpatient (IN) | payer OTHER ==
[2017-08-22] MEDS ORDERED: XOPENEX 1.25 MG NEB STA (12:08)
[2017-08-22] MEDS: SOLU-CORTEF 250 MG IVP SCH ×2 (12:49→17:01)
[2017-08-22] MEDS: TESSALON PERLES PO SCH ×2 (15:37→20:12)
[2017-08-22] MEDS: TYLENOL PO PRN (16:59)
[2017-08-22] MEDS: PROTONIX PO SCH (17:00)
[2017-08-22] MEDS: XOPENEX 1.25 MG NEB SCH ×2 (17:05→23:30)
[2017-08-22] MEDS: PULMICORT 0.5 MG/2 ML NEB SCH (17:05)
[2017-08-22] MEDS: MUCINEX PO SCH (20:12)
[2017-08-22] MEDS: TUSSIONEX PO SCH (20:12)
[2017-08-23] MEDS: TYLENOL PO PRN ×2 (04:32→09:39)
[2017-08-23] MEDS: SOLU-CORTEF 250 MG IVP SCH ×4 (04:46→20:44)
[2017-08-23] MEDS: PULMICORT 0.5 MG/2 ML NEB SCH ×2 (05:20→17:01)
[2017-08-23] MEDS: XOPENEX 1.25 MG NEB SCH ×4 (05:20→22:56)
[2017-08-23] MEDS: PROTONIX PO SCH ×2 (06:09→16:50)
[2017-08-23] MEDS: LEVAQUIN 500 MG in PREMIX 100 ML D5W 1 BAG IV SCH (08:41)
[2017-08-23] MEDS: MICRO-K CAP PO SCH (08:43)
[2017-08-23] MEDS: ZESTORETIC 20-12.5 MG TAB PO SCH (08:43)
[2017-08-23] MEDS: TUSSIONEX PO SCH ×2 (08:43→20:45)
[2017-08-23] MEDS: MUCINEX PO SCH ×2 (08:43→20:44)
[2017-08-23] MEDS: TESSALON PERLES PO SCH ×3 (08:43→20:44)
[2017-08-23] MEDS: ASPIRIN CHEWABLE PO SCH (08:44)
[2017-08-24] MEDS: TYLENOL PO PRN ×2 (02:07→14:51)
[2017-08-24] MEDS: PULMICORT 0.5 MG/2 ML NEB SCH ×2 (04:33→17:56)
[2017-08-24] MEDS: XOPENEX 1.25 MG NEB SCH ×4 (04:33→22:02)
[2017-08-24] MEDS: SOLU-CORTEF 250 MG IVP SCH ×3 (05:01→21:27)
[2017-08-24] MEDS: PROTONIX PO SCH ×2 (07:22→16:45)
[2017-08-24] MEDS: ASPIRIN CHEWABLE PO SCH (09:09)
[2017-08-24] MEDS: TESSALON PERLES PO SCH ×3 (09:09→21:27)
[2017-08-24] MEDS: MICRO-K CAP PO SCH (09:09)
[2017-08-24] MEDS: ZESTORETIC 20-12.5 MG TAB PO SCH (09:09)
[2017-08-24] MEDS: MUCINEX PO SCH ×2 (09:10→21:27)
[2017-08-24] MEDS: LEVAQUIN 500 MG in PREMIX 100 ML D5W 1 BAG IV SCH (09:16)
[2017-08-24] MEDS: TUSSIONEX PO SCH ×2 (09:17→21:27)
--- NOTE | 2017-08-24 09:23 | PCM.PROG ---
Attending Provider: ATTENDING PROVIDER: Dr. MILES JACKSON This patient is seen with Sarah Nuñez, Nurse Practitioner. DATE OF SERVICE: 08/24/17 SUBJECTIVE: This 72 year old WHITE/ F was hospitalized 08/22/17. The patient is sitting on side of bed, alert. Shortness of breath is slightly improved. She has been able to be up and about more, still with shortness of breath on exertion. Will attempt to decrease steroids to q.12 hours and see how patient tolerates. REVIEW OF SYSTEMS: CONSTITUTIONAL: No night sweats. No fatigue, malaise, lethargy. No fever or chills. HEENT: Eyes: No visual changes. No eye pain. No eye discharge. ENT: No runny nose. No epistaxis. No sinus pain. No odynophagia. No congestion. RESPIRATORY: Cough with wheeze. No hemoptysis. No shortness of breath. CARDIOVASCULAR: No angina symptoms. No CHF symptoms. No atypical chest pain for CAD. No palpitations. No orthopnea.. GASTROINTESTINAL: No abdominal pain. No nausea or vomiting. No diarrhea or constipation. No hematemesis. No hematochezia. GENITOURINARY: No urgency. No frequency. No dysuria. No hematuria. No obstructive symptoms. No discharge. No pain. No significant abnormal bleeding. MUSCULOSKELETAL: No musculoskeletal pain; no joint swelling. NEUROLOGICAL: Awake, alert, oriented to time, place and person. No headache. No neck pain. No syncope. No seizures. No dizziness. PSYCHIATRIC: Not anxious. No depression. No suicidal thoughts. No homicidal thoughts. SKIN: No rash. No lesions. No wounds. ENDOCRINE: No unexplained weight loss. No weight gain. HEMATOLOGIC/LYMPHATIC: No anemia. No purpura. No petechiae. No prolonged or excessive bleeding. No palpable lymph nodes. PHYSICAL EXAMINATION: GENERAL: The patient is awake, alert and oriented, sitting in bed in no distress. VITAL SIGNS: Temperature 98.0 F, Pulse 70, Respiratory Rate 20, BP 148/79, Pulse Ox 96% HEENT: Head normocephalic, atraumatic. Eyes: Extraocular muscles are intact. Pupils are equal, round and reactive to light and accommodation. Ears: No lesions. Nose appeared normal. Throat: No exudate or erythema. NECK: Supple. No JVD, no carotid bruit. No lymphadenopathy or thyromegaly. LUNGS: Diminished breath sounds improving. Clear to auscultation. Percussion note normal. Chest symmetrical. HEART: S1, S2, no S3. No murmurs. No cyanosis or clubbing. No ascites. Pulses: Dorsalis pedis and posterior tibial pulses +1 to +2 both sides. ABDOMEN: Soft. Non-tender. Bowel sounds active. No CVA tenderness. No mass felt. EXTREMITIES: No edema. Full range of motion of all extremities, equal. NEUROLOGIC: No focal deficit. Cranial nerves II through XII are grossly intact. No headache, no double vision or headache. SKIN: Not dry. Intact. Turgor-normal. LYMPHATIC: No palpable lymph nodes/no lymphedema. MUSCULOSKELETAL: Normal joints with no swelling. Muscle tone is normal. LAB REVIEW: 08/23/17 04:30 08/23/17 04:30 ASSESSMENT: 1. ACUTE ASTHMATIC BRONCHITIS 2. PLEURITIC PAIN 3. HYPOKALEMIA, RESOLVED 4. DEHYDRATION, RESOLVED PLAN: 1. Decrease Solu-Medrol to q.12 IV Plan and coordination of the patient's care discussed in the presence of [employer] and nurse. CONDITION: Stable SCRIBED BY: FAUSTINO ANGUIANO Real Estate Sales Associate scribed while in presence of service performed by Dr. Jackson/Sarah Nuñez APRN on 08/24/17 ([id number])
[2017-08-25] MEDS: TYLENOL PO PRN (02:32)
[2017-08-25] MEDS: XOPENEX 1.25 MG NEB SCH ×4 (04:40→23:30)
[2017-08-25] MEDS: PULMICORT 0.5 MG/2 ML NEB SCH ×2 (04:40→18:11)
[2017-08-25] MEDS: PROTONIX PO SCH ×2 (05:42→16:37)
[2017-08-25] MEDS ORDERED: PREDNISONE PO SCH (08:00)
[2017-08-25] MEDS: ASPIRIN CHEWABLE PO SCH (08:31)
[2017-08-25] MEDS: ZESTORETIC 20-12.5 MG TAB PO SCH (08:31)
[2017-08-25] MEDS: LEVAQUIN 500 MG in PREMIX 100 ML D5W 1 BAG IV SCH (08:31)
[2017-08-25] MEDS: TESSALON PERLES PO SCH ×3 (08:31→20:26)
[2017-08-25] MEDS: TUSSIONEX PO SCH ×2 (08:31→20:26)
[2017-08-25] MEDS: MUCINEX PO SCH ×2 (08:31→20:25)
[2017-08-25] MEDS: MICRO-K CAP PO SCH (08:32)
[2017-08-25] MEDS: TORADOL IVP PRN (08:34)
[2017-08-25] MEDS ORDERED: PREDNISONE PO STA (08:50)
[2017-08-25] MEDS ORDERED: K-DUR PO STA (09:21)
--- NOTE | 2017-08-25 09:25 | PCM.PROG ---
Attending Provider: ATTENDING PROVIDER: Dr. MILES JACKSON This patient is seen with Sarah Nuñez, Nurse Practitioner. DATE OF SERVICE: 08/25/17 SUBJECTIVE: This 72 year old WHITE/ F was hospitalized 08/22/17. The patient is alert and oriented. Coughing and wheezing slightly worse after decreased IV steroids yesterday. We will attempt to start Prednisone PO three times a day today. REVIEW OF SYSTEMS: CONSTITUTIONAL: No night sweats. No fatigue, malaise, lethargy. No fever or chills. HEENT: Eyes: No visual changes. No eye pain. No eye discharge. ENT: No runny nose. No epistaxis. No sinus pain. No odynophagia. No congestion. RESPIRATORY: Cough, no congestion. Wheezing. No hemoptysis. Shortness of breath. CARDIOVASCULAR: No angina symptoms. No CHF symptoms. No atypical chest pain for CAD. No palpitations. No orthopnea.. GASTROINTESTINAL: No abdominal pain. No nausea or vomiting. No diarrhea or constipation. No hematemesis. No hematochezia. GENITOURINARY: No urgency. No frequency. No dysuria. No hematuria. No obstructive symptoms. No discharge. No pain. No significant abnormal bleeding. MUSCULOSKELETAL: No musculoskeletal pain; no joint swelling. NEUROLOGICAL: Awake, alert, oriented to time, place and person. No headache. No neck pain. No syncope. No seizures. No dizziness. PSYCHIATRIC: Not anxious. No depression. No suicidal thoughts. No homicidal thoughts. SKIN: No rash. No lesions. No wounds. ENDOCRINE: No unexplained weight loss. No weight gain. HEMATOLOGIC/LYMPHATIC: No anemia. No purpura. No petechiae. No prolonged or excessive bleeding. No palpable lymph nodes. PHYSICAL EXAMINATION: GENERAL: The patient is awake, alert and oriented, sitting in bed in no distress. VITAL SIGNS: Temperature 97.8 F, Pulse 62, Respiratory Rate 20, BP 122/64, Pulse Ox 96% HEENT: Head normocephalic, atraumatic. Eyes: Extraocular muscles are intact. Pupils are equal, round and reactive to light and accommodation. Ears: No lesions. Nose appeared normal. Throat: No exudate or erythema. NECK: Supple. No JVD, no carotid bruit. No lymphadenopathy or thyromegaly. LUNGS: Diminished breath sounds. Wheezing on the left. Percussion note normal. Chest symmetrical. HEART: S1, S2, no S3. No murmurs. No cyanosis or clubbing. No ascites. Pulses: Dorsalis pedis and posterior tibial pulses +1 to +2 both sides. ABDOMEN: Soft. Non-tender. Bowel sounds active. No CVA tenderness. No mass felt. EXTREMITIES: Edema, right lower extremity. Full range of motion of all extremities, equal. NEUROLOGIC: No focal deficit. Cranial nerves II through XII are grossly intact. No headache, no double vision or headache. SKIN: Not dry. Intact. Turgor-normal. LYMPHATIC: No palpable lymph nodes/no lymphedema. MUSCULOSKELETAL: Normal joints with no swelling. Muscle tone is normal. LAB REVIEW: 08/25/17 04:30 08/25/17 04:30 08/25/17 04:30: Sodium 137, Potassium 3.0 L, Chloride 101, Carbon Dioxide 27, Anion Gap 12.0, BUN 26 H, Creatinine 0.84, Estimated GFR (MDRD) 66.00, BUN/ Creatinine Ratio 30.95, Glucose 139 H, Calcium 9.2, Total Bilirubin 0.4, AST 17 , ALT 43, Alkaline Phosphatase 35 L, Total Protein 5.0 L, Albumin 2.7 L, Globulin 2.3, Albumin/Globulin Ratio 1.17 08/25/17 04:30: WBC 10.40 H, RBC 3.53 L, Hgb 10.8 L, Hct 31.2 L, MCV 88.4, MCH 30.6, MCHC 34.6, RDW Coeff of Cely 14.7, Plt Count 199, Immature Gran % (Auto) 4.0, Neut % (Auto) 77.6, Lymph % (Auto) 12.0, [place] % (Auto) 6.3, Eos % (Auto) 0.0, Baso % (Auto) 0.1, Immature Gran # (Auto) 0.4, Neut # (Auto) 8.1 H, Lymph # (Auto) 1.3, [place] # (Auto) 0.7, Eos # (Auto) 0.0, Baso # (Auto) 0.0 ASSESSMENT: Please see below. 1. Asthmatic bronchitis 2. Shortness of breath slowly improving 3. Right lower extremity edema (history of DVT) PLAN: 1. Discontinue IV Solu-Cortef 2. Started Prednisone 20mg twice a day 3. Venous scan right lower extremity. Plan and coordination of the patient's care discussed in the presence of Director Of Vocational Guidance and nurse. SCRIBED BY: Chris VIEIRA scribed while in presence of service performed by Dr. Jcakson/Sarah Nuñez APRN on 08/25/17 ([id number])
[2017-08-25] MEDS: K-DUR PO SCH ×2 (11:55→16:36)
[2017-08-25] MEDS: PREDNISONE PO SCH ×2 (11:55→16:37)
--- NOTE | 2017-08-25 14:30 | US ---
EXAM: Right lower extremity venous Doppler History: Right lower extremity swelling. Technique: Multiple sonographic images through the right lower extremity were obtained. Color duple x Doppler was used to interrogate vascular flow. Findings: The right common femoral, greater saphenous, profunda, superficial femoral, popliteal, per black, and posterior tibial veins demonstrate spontaneous flow with normal compression and normal aug mentation. The right anterior tibial vein was not visualized. Impression: No sonographic evidence for deep venous thrombosis.
[2017-08-26] MEDS: PULMICORT 0.5 MG/2 ML NEB SCH ×2 (04:50→16:55)
[2017-08-26] MEDS: XOPENEX 1.25 MG NEB SCH ×4 (04:50→23:48)
[2017-08-26] MEDS: TYLENOL PO PRN (05:39)
[2017-08-26] MEDS: PROTONIX PO SCH ×2 (05:39→16:37)
[2017-08-26] MEDS: LEVAQUIN 500 MG in PREMIX 100 ML D5W 1 BAG IV SCH (08:46)
[2017-08-26] MEDS: TUSSIONEX PO SCH ×2 (08:46→20:14)
[2017-08-26] MEDS: MUCINEX PO SCH ×2 (08:47→20:15)
[2017-08-26] MEDS: PREDNISONE PO SCH ×3 (08:47→16:37)
[2017-08-26] MEDS: K-DUR PO SCH ×2 (08:47→16:36)
[2017-08-26] MEDS: ZESTORETIC 20-12.5 MG TAB PO SCH (08:47)
[2017-08-26] MEDS: TESSALON PERLES PO SCH ×3 (08:47→20:15)
[2017-08-26] MEDS: ASPIRIN CHEWABLE PO SCH (08:47)
[2017-08-27] MEDS: TORADOL IVP PRN ×2 (03:55→10:10)
[2017-08-27] MEDS: PULMICORT 0.5 MG/2 ML NEB SCH ×2 (04:55→16:45)
[2017-08-27] MEDS: XOPENEX 1.25 MG NEB SCH ×3 (04:55→16:45)
[2017-08-27] MEDS: PROTONIX PO SCH ×2 (05:42→16:48)
[2017-08-27] MEDS: ZESTORETIC 20-12.5 MG TAB PO SCH (08:13)
[2017-08-27] MEDS: ASPIRIN CHEWABLE PO SCH (08:13)
[2017-08-27] MEDS: K-DUR PO SCH ×2 (08:13→16:48)
[2017-08-27] MEDS: PREDNISONE PO SCH ×3 (08:13→16:48)
[2017-08-27] MEDS: MUCINEX PO SCH ×2 (08:13→20:23)
[2017-08-27] MEDS: TESSALON PERLES PO SCH ×3 (08:13→20:23)
[2017-08-27] MEDS: LEVAQUIN 500 MG in PREMIX 100 ML D5W 1 BAG IV SCH (08:13)
[2017-08-27] MEDS: TUSSIONEX PO SCH ×2 (08:14→20:23)
[2017-08-28] MEDS: XOPENEX 1.25 MG NEB SCH ×3 (00:03→11:19)
[2017-08-28] MEDS: TORADOL IVP PRN (03:57)
[2017-08-28] MEDS: PULMICORT 0.5 MG/2 ML NEB SCH (05:23)
[2017-08-28 05:27] VITALS: BP 151/76; TEMP 98
[2017-08-28] MEDS: PROTONIX PO SCH (05:43)
[2017-08-28] MEDS: ASPIRIN CHEWABLE PO SCH (09:22)
[2017-08-28] MEDS: MUCINEX PO SCH (09:22)
[2017-08-28] MEDS: K-DUR PO SCH (09:22)
[2017-08-28] MEDS: PREDNISONE PO SCH ×2 (09:22→12:21)
[2017-08-28] MEDS: ZESTORETIC 20-12.5 MG TAB PO SCH (09:23)
[2017-08-28] MEDS: TUSSIONEX PO SCH (09:23)
[2017-08-28] MEDS: TESSALON PERLES PO SCH (09:23)
[2017-08-28] MEDS: LEVAQUIN 500 MG in PREMIX 100 ML D5W 1 BAG IV SCH (09:23)
--- NOTE | 2017-08-28 11:04 | CM.DICTOOL ---
ADMISSION: 08/22/17 11:24 DISCHARGE: August DATE OF SERVICE: 08/28/17 FINAL DIAGNOSIS ASTHMATIC BRONCHITIS HYPERTENSION DYSLIPIDEMIA OBESITY OSTEOARTHRITIS PREVIOUS SMOKER, STOPPED 20 YRS AGO HYPOKALEMIA, RESOLVED LAST VITALS Temp Pulse Resp BP Pulse Ox 98 F 64 18 151/76 H 97 08/28/17 05:26 08/28/17 05:26 08/28/17 05:26 08/28/17 05:26 08/28/17 05:26 TAKE THESE MEDICATIONS Aspirin (Aspirin Chewable) 81 mg PO DAILYWM [facility] Last Admin: 08/28/17 09:22 Dose: 81 mg Chlorphenir/Hydrocodone Polistirex (Tussionex) 5 ml PO Q12HR [facility] Last Admin: 08/28/17 09:23 Dose: 5 ml Lisinopril/HCTZ (Zestoretic 20-12.5 Mg Tab) 1 tab PO DAILY [facility] Last Admin: 08/28/17 09:23 Dose: Pravastatin 40 mg DAILY Last Admin: [id number] MG PO DAILY [facility] Pantoprazole Sodium (Protonix) 40 mg PO DAILYAC [facility] Last Admin: 08/28/17 05:43 Dose: 40 mg Potassium Chloride (K-Dur) 20 meq PO DAILY WM [facility] Last Admin: 08/28/17 09:22 Dose: 20 meq Prednisone (Prednisone) 20 mg PO TIDWM [facility] Last Admin: 08/28/17 09:22 Dose: 20 mg Proventil HFA 2 puffs QID PRN Shortness of air/Wheezing ALLERGIES atorvastatin [From Lipitor] Adverse Reaction (Verified 08/16/17 11:47) celecoxib [From Celebrex] Adverse Reaction (Verified 08/16/17 11:47) diazepam [From Valium] Adverse Reaction (Verified 08/16/17 11:47) hydrochlorothiazide [From Hyzaar] Adverse Reaction (Verified 08/16/17 11:47) losartan [From Hyzaar] Adverse Reaction (Verified 08/16/17 11:47) oxaprozin [From Daypro] Adverse Reaction (Verified 08/16/17 11:47) Penicillins Adverse Reaction (Verified 06/12/16 15:47) rosuvastatin [From Crestor] Adverse Reaction (Verified 08/16/17 11:47) simvastatin Adverse Reaction (Verified 08/16/17 11:47) NEW PRESCRIPTIONS: LEVAQUIN 250 MG DAILY FOR 5 DAYS PREDNISONE 20 MG BID FOR 3 DAYS, THEN 20 MG DAILY FOR 3 DAYS, THEN 10 MG DAILY FOR 3 DAYS K-DUR 20 MEQ DAILY PROTONIX 40 MG DAILY FOR ONE MONTH PROVENTIL HFA 2 PUFFS QID PRN WHEEZING/SHORTNESS OF AIR TUSSIONEX 1 TEASPOON (5 ML) BID SMOKING: NOT APPLICABLE DISEASE SPECIFIC EDUCATION: ASTHMATIC BRONCHITIS USE OF INHALER USE OF STEROIDS AND RISK OF GI IRRITATION APPOINTMENT ACTIVITY LAB REVIEW: 08/27/17 04:30 08/27/17 04:30 PLAN: DISCHARGE HOME DIET: RESUME TOLERATED ACTIVITY: GRADUALLY RESUME TOLERATED REST FREQUENTLY AN APPOINTMENT IS SCHEDULED WITH AMISH TAVARES APRN ON AT 9:30 AM MS. CH MAY RETURN TO WORK ON SEPTEMBER 04, 2017 CONTINUE MEDICATIONS LISTED ON NURSING DISCHARGE INFORMATION SHEET MS. CH IS ALERT AND ORIENTED X 3. SHE LIVES ALONE AND IS INDEPENDENT WITH ADL' S. SHE DOES NOT REQUIRE ASSISTIVE DEVICES FOR AMBULATION. MS. CH IS AMBULATORY IN THE ROOM AND HALLWAY, BUT REPORTS SHE TIRES EASILY WITH ACTIVITY. MEAL INTAKES ARE GOOD AT 50-100%. NO ABDOMINAL PAIN OR NAUSEA. MS. CH CONTINUES TO WORK OUTSIDE THE HOME. SKIN IS INTACT AND FREE OF DECUBITUS ULCERS , RASHES OR IRRITATION. MILES JACKSON MD AMISH TAVARES APRN
--- NOTE | 2017-08-28 11:26 | HP ---
DATE OF SERVICE: 08/22/17 HISTORY OF PRESENT ILLNESS: 72-year-old white female who has asthmatic bronchitis. She failed treatment as an outpatient with a direct admission from our office. She has been hospitalized on IV steroids, IV antibiotics as well as neb treatments around the clock with very slow improvement. She is still extremely short of breath especially with exertion with recurrent bronchospasm, unable to rest. She is slightly dehydrated on admission. She has improved; however, slowly. She is being admitted to swing bed to continue IV steroids as we have been unable to wean her off without worsening of the bronchitis. PAST MEDICAL HISTORY: Asthma COPD Chronic leg edema Hypertension Osteoarthritis GERD Dyslipidemia Obesity PAST SURGICAL HISTORY: 1975 REVIEW OF SYSTEMS: CONSTITUTIONAL: No night sweats. No fatigue, malaise, lethargy. No fever or chills. HEENT: Eyes: No visual changes. No eye pain. No eye discharge. ENT: No runny nose. No epistaxis. No sinus pain. No sore throat. No odynophagia. No ear pain. No congestion. RESPIRATORY: Positive for cough, wheezing. Shortness of breath with exertion. No hemoptysis. CARDIOVASCULAR: No angina symptoms. No CHF symptoms. No atypical chest pain for CAD. No palpitations. No PND. No orthopnea. GASTROINTESTINAL: No abdominal pain. No nausea or vomiting. No diarrhea or constipation. No hematemesis. No hematochezia. GENITOURINARY: No urgency. No frequency. No dysuria. No hematuria. No obstructive symptoms. No discharge. No pain. No significant abnormal bleeding. MUSCULOSKELETAL: No musculoskeletal pain. No joint swelling. No arthritis. NEUROLOGICAL: No headache. No neck pain. No syncope. No seizures. No dizziness. PSYCHIATRIC: Not anxious. No depression. No suicidal thoughts. No homicidal thoughts. SKIN: No rash. No lesions. No wounds. ENDOCRINE: No unexplained weight loss. No weight gain. HEMATOLOGIC/LYMPHATIC: No anemia. No purpura. No petechiae. No prolonged or excessive bleeding. No palpable lymph nodes. PERSONAL/FAMILY/SOCIAL HISTORY: The patient is . She lives by herself in an apartment. She is independent. She still works parttime as a registered nurse. She is a DNR status. She is a nonsmoker. No alcohol or ilicit drug use. MEDICATIONS: (HOME) Lisinopril/Hydrochlorothiazide one each p.o. b.i.d. Pravastatin 40 mg p.o. daily p.r.n. Aspirin 81 mg p.o. daily ALLERGIES: PENICILLIN, DIAZEPAM (FROM VALIUM), HYDROCHLOROTHIAIZDE (FROM HYZAAR) , SIMVASTATIN, OXAPROZIN (FROM DAYPRO), LOSARTAN (FROM HYZAAR), ATORVASTATIN ( FROM LIPITOR), CELECOXIB (FROM CELEBREX), ROSUVASTATIN (FROM CRESTOR) PHYSICAL EXAMINATION: GENERAL: The patient is alert and oriented. VITAL SIGNS: Temperature 97.8, pulse 64, BP 142/76, respiratory rate 16, 02 sat 98. HEENT: Head normocephalic, atraumatic. Eyes: Extraocular muscles are intact. Pupils are equal, round and reactive to light and accommodation. Ears: No lesions. Nose appeared normal. Throat: No exudate or erythema. NECK: Supple. No JVD, no carotid bruit. No lymphadenopathy or thyromegaly. LUNGS: Positive for inspiratory, expiratory wheezing which is slowly improving. Percussion note normal. Chest symmetrical. HEART: S1, S2, no S3. No murmurs. No cyanosis or clubbing. No ascites. Pulses: Dorsalis pedis and posterior tibial pulses +1 to +2 bilaterally. ABDOMEN: Soft. Nontender. Bowel sounds active. No CVA tenderness. No mass felt. EXTREMITIES: Trace right lower extremity edema. Full range of motion of all extremities, equal. NEUROLOGIC: No focal deficit. Cranial nerves II through XII are grossly intact. No headache, no double vision or headache. SKIN: Not dry. Intact. Turgor - normal. LYMPHATIC: No palpable lymph nodes/no lymphedema. MUSCULOSKELETAL: Normal joints with no swelling. Muscle tone is normal. ASSESSMENT: 1. ACUTE ASTHMATIC BRONCHITIS 2. SHORTNESS OF BREATH 3. PLEURITIC PAIN 4. HYPERTENSION PLAN: 1. Will admit to swing bed 2. Continue Solu-Cortef 125 mg IV q.8hr 3. Continue Xopenex scheduled q.6hr 4. Toradol as needed for pain 5. Will continue Levaquin 500 mg IV 6. Continue Pulmicort neb treatments b.i.d. 7. Oxygen at 1 to 2L as needed p.r.n. 8. Tussionex b.i.d. for coughing 9. Will attempt to wean steroids as needed TIME SPENT: More than 70 minutes. MTDD
--- NOTE | 2017-08-28 11:35 | PN ---
DATE OF SERVICE: 08/28/17 SUBJECTIVE: 72-year-old white female hospitalized now in the swing bed with acute asthmatic bronchitis. The patient's condition has improved. She wore quality assurance monitor body yesterday which showed sinus rhythm. She was feeling palpitation type of symptoms but it was mainly anxiety. She is in sinus rhythm. No SVT or any tachyarrhythmias noted. PHYSICAL EXAMINATION: VITAL SIGNS: Temperature 98, pulse 64, respiratory rate 18, BP 150/76, pulse ox 97%. HEENT: Head normocephalic, atraumatic. Eyes: Extraocular muscles are intact. Pupils are equal, round and reactive to light and accommodation. Ears: No lesions. Nose appeared normal. Throat: No exudate or erythema. NECK: Supple. No JVD, no carotid bruit. No lymphadenopathy or thyromegaly. LUNGS: Decreased breath sounds but clear to auscultation. Percussion note normal. Chest symmetrical. HEART: S1, S2, no S3. No murmurs. No cyanosis or clubbing. No ascites. Pulses: Dorsalis pedis and posterior tibial pulses +1 to +2 both sides. ABDOMEN: Soft. Nontender. Bowel sounds active. No CVA tenderness. No mass felt. EXTREMITIES: No edema. Full range of motion of all extremities, equal. NEUROLOGIC: No focal deficit. Cranial nerves II through XII are grossly intact. No headache, no double vision or headache. SKIN: Not dry. Intact. Turgor - normal. LYMPHATIC: No palpable lymph nodes/no lymphedema. MUSCULOSKELETAL: Normal joints with no swelling. Muscle tone is normal. LABS: Hemoglobin 11.7, hematocrit 34, WBC 13,000, normal differential. ASSESSMENT: 1. BRONCHITIS/PNEUMONITIS SEEMS TO BE RESOLVING PLAN: 1. Discharge home on Proventil two puffs q.i.d. p.r.n. 2. Prednisone on tapering dose 20 mg twice a day for three days, 20 mg one a day for three days, 10 mg one a day for three days. 3. Levaquin 250 mg p.o. daily for five days. CONDITION: Stable TIME SPENT: More than 30 minutes. Plan and coordination of the patient's care discussed in the presence of nurse. BRAEDEN
--- NOTE | 2017-08-31 10:25 | DS ---
DATE OF SERVICE: 08/28/17 FINAL DIAGNOSIS: 1. Asthmatic bronchitis 2. Hypertension 3. Dyslipidemia 4. Obesity 5. Osteoarthritis 6. Previous smoker, stopped 20 years ago 7. Hypokalemia, resolved LAST VITALS: Temperature 98, pulse 64, respiratory rate 18, blood pressure 151/76 and pulse ox 97%. DISCHARGE INSTRUCTIONS: Discharge home. An appointment is scheduled with Sarah Nuñez APRN on September 01 at 9:30am. Ms. Tong may return to work on September 04, 2017. Continue medications as listed on nursing discharge information sheet. MEDICATIONS AT DISCHARGE: Aspirin chewable 81mg PO daily Tussionex 5ml PO Q 12 hours Zestoretic 20-12.5 one tablet PO daily Pravastatin 40mg PO daily Levofloxacin 250mg Po daily Protonix 40mg PO daily K-dur 20meq PO daily Prednisone 20mg PO three times a day ALLERGIES: Atorvastatin Celecoxib Diazepam Hydrochlorothiazide Losartan Oxaprozin Penicillin Rosuvastatin Simvastatin NEW PRESCRIPTIONS: Levaquin 250mg PO daily for 5 days Prednisone 20mg twice a day for 3 days, then 20mg daily for 3 days, then 10mg daily for 3 days K-Dur 20meq daily Protonix 40mg daily for one month Proventil HFA 2 puffs four times a day PRN wheezing/shortness of air Tussionex 1 teaspoon 5ml twice a day DIET INSTRUCTIONS: Resume as tolerated ACTIVITY: Gradually resume as tolerated. Rest frequently. SMOKING: N/A DISEASE SPECIFIC EDUCATION: Asthmatic bronchitis Use of inhaler Use of steroids and risk of GI irritation Appointment Activity HOSPITAL COURSE: This is a white female who was initially a direct admit from our office with acute shortness of breath, worsening bronchitis. She had failed outpatient treatment with Biaxin and Prednisone and her inhaler. She was admitted. Chest x- ray revealed changes associated with bronchitis and inflammation. Upon admission she was very short of breath with any sort of exertion including talking. She had a dry croupy cough and was unable to cough anything up. She was started IV Levaquin along with Solu-Cortef 125mg IV Q 8 hours. This was increased to Q 6 hours where she remained for several days. She was treated for several days with minimal improvement with Xopenex NEBS treatment Q 6 hours and Pulmicort twice daily. She was still extremely short of breath with exertion and felt that placement on swing bed would be most beneficial for her as she was slow to improve due to her under asthma long with this bronchitis. We slowly began weening her steroids and started her on PO Prednisone 20mg three times a day. She did tolerate this OK. She will be discharged home on this with a tapering dose. She will be twice a day for three days and then daily for three days and then 10mg daily for 3 days. She will also be sent home on Levaquin 250mg for 5 days. She did have some hypokalemia during her hospital stay so because she is on hydrochlorothiazide we will send her home with Potassium 20meq daily. She did not have any inhalers or a nebulizer machine at home. She believes that she will be able to do well with an inhaler so a prescription will be given for a Proventil inhaler for her to do two puffs at least four times a day until her cough resolves. She will get Tussionex PO as needed for cough. She is instructed to stay inside and not to be outside in the heat and humidity. She is finally stopped wheezing upon discharge. She is able to carry on a conversation without becoming short of breath. She is not required oxygen for the past 48 hours or so. She is able to get up and go tot he bathroom without becoming extremely short of breath or having a current bronchial spasm. She has significantly improved although it has been slow again to her underlined asthma component until right before discharge she was extreme short of breath even just getting up and going to the bathroom. She does not meet the need for oxygen at home. We will followup with her closely in the office next week. She is to see her sooner if her signs and symptoms begin to worsen again. TIME SPENT: More than 60 minutes. BRAEDEN
== END 2017-08-28 12:45 | disposition home or self-care (01) | DRG 192 ==
LOC: MEDSURG A 11:24
PROVIDERS: ADMIT Internal Medicine; ATTEND Internal Medicine
DX: J44.9 Chronic obstructive pulmonary disease, unspecified (principal); R06.02 Shortness of breath; R07.81 Pleurodynia; E86.0 Dehydration; I10 Essential (primary) hypertension; E78.5 Hyperlipidemia, unspecified; E66.9 Obesity, unspecified; M19.90 Unspecified osteoarthritis, unspecified site; E87.6 Hypokalemia; F41.9 Anxiety disorder, unspecified; R60.0 Localized edema; Z86.718 Personal history of other venous thrombosis and embolism; Z79.2 Long term (current) use of antibiotics; Z79.899 Other long term (current) drug therapy; Z87.891 Personal history of nicotine dependence
CPT/HCPCS: 36415; 80048; 80053; 85025; 93005; 93010; 94640

== ENCOUNTER 2017-09-05 14:34 | Outpatient (CLI) | payer OTHER | END 2017-09-05 14:35 | disposition home or self-care (01) | LOC: LAB 14:34 | PROVIDERS: ATTEND Nurse Practitioner Family | DX: R73.9 Hyperglycemia, unspecified (principal); D64.9 Anemia, unspecified; M19.90 Unspecified osteoarthritis, unspecified site | CPT/HCPCS: 36415; 80053 ==

== ENCOUNTER 2017-10-16 14:00 | Inpatient (IN) ==
[2017-10-16 14:55] VITALS: BMI 38.5
[2017-10-16] MEDS ORDERED: ATROPINE SULFATE PFS IVP PRN (17:02)
[2017-10-16] MEDS ORDERED: NITROSTAT SL PRN (17:02)
[2017-10-16] MEDS ORDERED: MORPHINE 4 MG/ML VIAL IVP PRN (17:02)
[2017-10-16] MEDS ORDERED: VISTARIL INJ IM PRN (17:02)
[2017-10-16] MEDS ORDERED: SODIUM CHLORIDE 500 ML IV SCH (17:30)
--- NOTE | 2017-10-16 18:19 | DI ---
EXAM: AP single view of the chest. HISTORY: Chronic obstructive pulmonary disease. FINDINGS: The bones are unremarkable. The cardiac silhouette is mildly enlarged. There is ectasia of the thoracic aorta. The pulmonary vasculature is within normal limits. The costophrenic angles are c lear. There is minimal left basilar subsegmental atelectasis versus scarring. Impression: Minimal left basilar subsegmental atelectasis versus scarring. Mild cardiomegaly. Atherosclerotic vascular disease.
[2017-10-16] MEDS: PROTONIX IV IVP SCH (18:20)
--- NOTE | 2017-10-16 18:21 | CT ---
EXAM: Noncontrast CT of the abdomen and pelvis. HISTORY: Nausea, vomiting diarrhea. COMPARISON: CT of the chest dated 08/18/2017 and 06/12/2016 TECHNIQUE: Contiguous axial images at 3 mm intervals were obtained from lung bases through the pelvi s. No contrast was given. Coronal reformats were reviewed. FINDINGS: The study is limited without contrast. CHEST: The lung bases show no lobar consolidation or effusion. Calcified granulomas are seen. Rae nary and aortic valve calcifications are noted.The heart size is within normal limits. ABDOMEN: Evaluation of the soft tissue organs is limited without contrast. LIVER: There is a 1.7 cm hypodensity in the posterior right lobe of liver, best seen on axial image 36. This is increased in size in comparison to prior study would measured 1.3 cm. This measures 18 HU and may be a cyst. Evaluation is limited without contrast. BILIARY: The gallbladder is normally distended. There is a calcification of fundus of the gallbladd er which may be a small stone or a focal gallbladder wall calcification. A similar, less prominent d ensity seen in this location on the prior CT as well. No pericholecystic fluid or inflammation. The common bile duct is normal. SPLEEN: The spleen is unremarkable. PANCREAS: The pancreas shows no mass lesion or peripancreatic inflammation. ADRENAL GLANDS: The adrenal glands are normal. RENAL: The kidneys show no hydronephrosis or nephrolithiasis. There are no obstructing ureteral sto ruby. No solid mass lesions are identified. RETROPERITONEUM: The aorta is unopacified. No aneurysm is identified. Moderate aortic calcificatio ns are seen. There is no retroperitoneal or mesenteric adenopathy. BOWEL: The bowel is unopacified. There is no obstruction or inflammatory change. There is no free fluid or free air. No significant inflammatory changes are seen. Sigmoid diverticulosis is seen. There is subtle inflammatory change adjacent to the sigmoid colon. There is adjacent air fluid level which may be within the bowel. This measures up to 3.2 x 2.4 cm. The appendix is identified and is normal. PELVIS: BLADDER: The bladder is well distended and appears normal. GENITOURINARY STRUCTURES: The uterus is unremarkable. OSSEOUS STRUCTURES: The osseous structures are normal for age. IMPRESSION 1. Sigmoid diverticulosis with minimal adjacent inflammation. Findings suggest early diverticulitis. 2. 3.2 x 2.4 cm air-fluid level adjacent to this area diverticulitis which may be fluid within the b owel. A colonic wall abscess or diverticular abscess cannot be completely excluded. Evaluation is li mited without IV and enteric contrast. There is no free fluid or free air. 3. Hypodensity in the posterior right lobe of liver is slightly larger, currently measuring 1.7 cm. Evaluation limited on a single noncontrast CT. Consider follow-up ultrasound. 4. Cholelithiasis versus porcelain gallbladder. A focal calcification is seen in the fundus which i s similar to the prior study. No gallbladder wall thickening or pericholecystic fluid.
[2017-10-16] MEDS ORDERED: MOMETASONE FUROATE INH SCH (21:00)
[2017-10-17] MEDS: SODIUM CHLORIDE 1,000 ML IV SCH ×3 (05:00→16:20)
[2017-10-17] MEDS: PROAIR HFA IH SCH ×5 (07:20→21:09)
[2017-10-17] MEDS ORDERED: ASPIRIN EC PO SCH (08:00)
[2017-10-17] MEDS: PRAVACHOL PO SCH (08:28)
[2017-10-17] MEDS: ASPIRIN CHEWABLE PO SCH (08:28)
[2017-10-17] MEDS: ZESTORETIC 20-12.5 MG TAB PO SCH ×2 (08:28→21:10)
[2017-10-17] MEDS: PROTONIX IV IVP SCH (08:29)
[2017-10-17] MEDS: MOMETASONE FUROATE INH SCH ×2 (08:33→21:11)
[2017-10-17] MEDS ORDERED: ZESTORETIC 20-12.5 MG TAB PO SCH (09:00)
--- NOTE | 2017-10-17 10:18 | PCM.PROG ---
Attending Provider: ATTENDING PROVIDER: Dr. MILES JACKSON DATE OF SERVICE: 10/17/17 SUBJECTIVE: This 72 year old WHITE/ F was hospitalized 10/16/17. The patient is hospitalized with acute gastroenteritis with weight loss of 6 to 8 lbs in one week. The patient's condition has improved, less diarrhea, no nausea or vomiting. REVIEW OF SYSTEMS: CONSTITUTIONAL: No night sweats. No fatigue, malaise, lethargy. No fever or chills. HEENT: Eyes: No visual changes. No eye pain. No eye discharge. ENT: No runny nose. No epistaxis. No sinus pain. No odynophagia. No congestion. RESPIRATORY: No cough, no congestion. No hemoptysis. No shortness of breath. CARDIOVASCULAR: No angina symptoms. No CHF symptoms. No atypical chest pain for CAD. No palpitations. No orthopnea.. GASTROINTESTINAL: No abdominal pain. No nausea or vomiting. No diarrhea or constipation. No hematemesis. No hematochezia. GENITOURINARY: No urgency. No frequency. No dysuria. No hematuria. No obstructive symptoms. No discharge. No pain. No significant abnormal bleeding. MUSCULOSKELETAL: No musculoskeletal pain; no joint swelling. NEUROLOGICAL: Awake, alert, oriented to time, place and person. No headache. No neck pain. No syncope. No seizures. No dizziness. PSYCHIATRIC: Not anxious. No depression. No suicidal thoughts. No homicidal thoughts. SKIN: No rash. No lesions. No wounds. ENDOCRINE: No unexplained weight loss. No weight gain. HEMATOLOGIC/LYMPHATIC: No anemia. No purpura. No petechiae. No prolonged or excessive bleeding. No palpable lymph nodes. PHYSICAL EXAMINATION: GENERAL: The patient is awake, alert and oriented, sitting in bed in no distress. VITAL SIGNS: Temperature 97.8 F, Pulse 74, Respiratory Rate 24, BP 140/91, Pulse Ox 98% HEENT: Head normocephalic, atraumatic. Eyes: Extraocular muscles are intact. Pupils are equal, round and reactive to light and accommodation. Ears: No lesions. Nose appeared normal. Throat: No exudate or erythema. NECK: Supple. No JVD, no carotid bruit. No lymphadenopathy or thyromegaly. LUNGS: Clear to auscultation. Percussion note normal. Chest symmetrical. HEART: S1, S2, no S3. No murmurs. No cyanosis or clubbing. No ascites. Pulses: Dorsalis pedis and posterior tibial pulses +1 to +2 both sides. ABDOMEN: Soft. Non-tender. Bowel sounds active. No CVA tenderness. No mass felt. EXTREMITIES: No edema. Full range of motion of all extremities, equal. NEUROLOGIC: No focal deficit. Cranial nerves II through XII are grossly intact. No headache, no double vision or headache. SKIN: Warm and dry. Intact. Turgor-normal. LYMPHATIC: No palpable lymph nodes/no lymphedema. MUSCULOSKELETAL: Normal joints with no swelling. Muscle tone is normal. LAB REVIEW: 10/17/17 01:05 10/17/17 01:05 10/17/17 01:05: WBC 7.30, RBC 3.96 L, Hgb 11.9 L, Hct 34.3 L, MCV 86.6, MCH 30.1 , MCHC 34.7, RDW Coeff of Cely 13.9, Plt Count 202, Immature Gran % (Auto) 0.5, Neut % (Auto) 60.0, Lymph % (Auto) 28.8, [place] % (Auto) 7.3, Eos % (Auto) 2.7, Baso % (Auto) 0.7, Immature Gran # (Auto) 0.0, Neut # (Auto) 4.4, Lymph # (Auto ) 2.1, [place] # (Auto) 0.5, Eos # (Auto) 0.2, Baso # (Auto) 0.1 10/17/17 01:05: Sodium 137, Potassium 3.6, Chloride 107, Carbon Dioxide 22 L, Anion Gap 11.6, BUN 13, Creatinine 0.74, Estimated GFR (MDRD) 77.00, BUN/ Creatinine Ratio 17.56, Glucose 92, Calcium 9.9, Total Bilirubin 1.0, AST 24, ALT 32, Alkaline Phosphatase 41 L, Total Creatine Kinase 46, Troponin I 0.0100, Total Protein 5.8, Albumin 3.0 L, Globulin 2.8, Albumin/Globulin Ratio 1.07 10/16/17 21:04: Urine Color Yellow, Urine Clarity Slightly, Urine pH 5.5, Ur Specific [place] >=1.030, Urine Protein 1+, Urine Glucose (UA) Negative, Urine Ketones 1+, Urine Blood Negative, Urine Nitrite Negative, Urine Bilirubin 1+, Urine Urobilinogen 1.0, Ur Leukocyte Esterase Negative, Urine Microscopic RBC 2- 5, Ur Squamous Epith Cells 0-2, Urine Bacteria 1+, Hyaline Casts 0-2, Urine Mucus 3+ 10/16/17 17:26: Sodium 136, Potassium 4.2, Chloride 103, Carbon Dioxide 24, Anion Gap 13.2, BUN 14, Creatinine 0.79, Estimated GFR (MDRD) 71.00, BUN/ Creatinine Ratio 17.72, Glucose 92, Calcium 10.6 H, Total Bilirubin 1.0, AST 30 , ALT 38, Alkaline Phosphatase 48 L, Total Creatine Kinase 52, Troponin I < 0.0100, Total Protein 6.8, Albumin 3.4, Globulin 3.4, Albumin/Globulin Ratio 1.00 10/16/17 17:26: WBC 9.85, RBC 4.34, Hgb 12.8, Hct 37.6, MCV 86.6, MCH 29.5, MCHC 34.0, RDW Coeff of Cely 14.1, Plt Count 238, Immature Gran % (Auto) 0.3, Neut % (Auto) 66.3, Lymph % (Auto) 24.2, [place] % (Auto) 6.8, Eos % (Auto) 1.8, Baso % (Auto) 0.6, Immature Gran # (Auto) 0.0, Neut # (Auto) 6.5, Lymph # (Auto ) 2.4, [place] # (Auto) 0.7, Eos # (Auto) 0.2, Baso # (Auto) 0.1 ASSESSMENT: 1. Acute gastroenteritis seems to be resolving. 2. Chronic lung disease. 3. Morbid obesity. PLAN: 1. Continue IV fluids and symptomatic treatment. 2. Soft diet. Plan and coordination of the patient's care discussed in the presence of Case Management Manager and nurse. CONDITION: Stable SCRIBED BY: Chris BEAVER scribed while in presence of service performed by Dr. MILES JACKSON on 10/17/17 ([id number])
[2017-10-17] MEDS: ZOFRAN 4 MG/2 ML IVP PRN ×2 (10:30→16:01)
--- NOTE | 2017-10-17 11:19 | HP ---
DATE OF SERVICE: 10/16/17 REASON FOR HOSPITALIZATION/HISTORY OF PRESENT ILLNESS: The patient has lost 10 pounds. Diarrhea since last week-Monday. Nauseated. She and friend ate at [employer] last Monday-both got sick. No blood in stool. PAST MEDICAL HISTORY: Hypertension Dyslipidemia LVH Sleep apnea Obesity Osteoarthritis knees Cervical muscle spasms Right hip Osteoarthritis Chronic bronchitis PAST SURGICAL HISTORY: 1975 REVIEW OF SYSTEMS: CONSTITUTIONAL: Fever, Fatigue. HEENT: No sinus drainage, no sore throat. RESPIRATORY: No cough, no congestion. CARDIOVASCULAR: No atypical chest pain for coronary artery disease. No angina , CHF symptoms, palpitations or shortness of breath. GASTROINTESTINAL: No melena or abdominal pain. No GERD. Vomiting and diarrhea. GENITOURINARY: No hematuria, no prostatism, no polyuria. SLATE ROOFER HELPER: No blackout,Dizziness, Headache, no double vision. MUSCULOSKELETAL: Osteoarthritis pain, no joint swelling. ENDOCRINE: Weight loss 10 pounds, no weight gain. SKIN: Not dry, no rash. PSYCHIATRIC: Not anxious, no depression, no suicidal thoughts, no homicidal thoughts. SOCIAL HISTORY: Marital Status: . Alcohol Usage: No. Tobacco Usage: No. FAMILY HISTORY: Father treatment from gold shots for arthritis Mother CA cervix MEDICATIONS: Aspirin 81mg PO daily Lisinopril 20-12.5 PO twice a day Pravachol 40mg PRN Flexeril 5mg PRN Potassium 20meq PO daily Protonix 40mg PO daily ALLERGIES: Penicillin Daypro Valium Lipitor Simvastatin Celebrex Crestor Hyzaar PHYSICAL EXAMINATION: V/S: Pulse 81, blood pressure 112/74, temperature 97.2, oxygen saturation 98%. Height 5'6, BMI 34.0 and Weight 210.6. GENERAL APPEARANCE: Oriented times three. Pale, dry mucosa membranes. HEENT: Normal. NECK: No JVP, no bruits. RESPIRATORY: Decreased breath sounds. CARDIOVASCULAR: S1, S2, no S3, no murmurs. No cyanosis, clubbing. No ascites. GI/ABDOMEN: No tenderness. Bowel sounds are hyperactive. EXTREMITIES: edema, pulses +1, equal. SLATE ROOFER HELPER: Deep tendon reflexes, sensory, motor and gait all normal. RECTAL: Patient refused/PELVIC: Advised yearly, Mammogram and Bone Density the patient has refused. ASSESSMENT: 1. Acute dehydration 2. Acute gastritis 3. Weight loss 4. Hypertension 5. Dyslipidemia 6. LVH 7. Sleep apnea 8. Obesity 9. Osteoarthritis knees 10.Cervical muscle spasms 11.Right hip Osteoarthritis 12.Chronic bronchitis PLAN: 1. Normal saline @ 83cc an hour 2. Routine telemetry orders 3. CBC/CMP daily 4. CT of abdomen and pelvis with contrast 5. Zofran 4mg IV Q 6 hours PRN 6. Stool for C-Diff 7. Stool culture 8. Protonix 40mg IV daily 9. Continue all medications TIME SPENT: More than 70 minutes. MTDD
[2017-10-17] MEDS: TYLENOL PO PRN (13:05)
[2017-10-17] MEDS ORDERED: PREDNISONE PO SCH (14:00)
[2017-10-17] MEDS: PREDNISONE PO SCH ×2 (17:05→23:29)
[2017-10-17] MEDS ORDERED: TORADOL IVP STA (17:05)
[2017-10-17] MEDS ORDERED: FLAGYL 500 MG/100 ML 500 MG in PREMIX 100 ML NS 1 BAG IV SCH (18:00)
[2017-10-17] MEDS ORDERED: FLAGYL 500 MG/100 ML 100 ML IV ONE (21:05)
[2017-10-17] MEDS: FLAGYL 500 MG/100 ML 500 MG in PREMIX 100 ML NS 1 BAG IV SCH (21:15)
[2017-10-18] MEDS: SODIUM CHLORIDE 1,000 ML IV SCH ×2 (04:54→20:35)
[2017-10-18] MEDS ORDERED: FLAGYL 500 MG/100 ML 100 ML IV ONE (05:44)
[2017-10-18] MEDS: FLAGYL 500 MG/100 ML 500 MG in PREMIX 100 ML NS 1 BAG IV SCH ×3 (05:55→20:35)
[2017-10-18] MEDS: PREDNISONE PO SCH ×3 (06:19→17:37)
[2017-10-18] MEDS: ZESTORETIC 20-12.5 MG TAB PO SCH ×2 (08:26→20:35)
[2017-10-18] MEDS: TYLENOL PO PRN (08:27)
[2017-10-18] MEDS: PROAIR HFA IH SCH ×4 (08:27→20:35)
[2017-10-18] MEDS: ASPIRIN CHEWABLE PO SCH (08:27)
[2017-10-18] MEDS: MOMETASONE FUROATE INH SCH ×2 (08:28→20:36)
[2017-10-18] MEDS: PROTONIX IV IVP SCH (08:28)
[2017-10-18] MEDS: PRAVACHOL PO SCH (11:43)
[2017-10-18] MEDS ORDERED: TORADOL IVP STA (18:26)
[2017-10-19] MEDS: PREDNISONE PO SCH ×3 (00:19→13:36)
[2017-10-19] MEDS: ZOFRAN 4 MG/2 ML IVP PRN ×2 (04:18→21:46)
[2017-10-19] MEDS: FLAGYL 500 MG/100 ML 500 MG in PREMIX 100 ML NS 1 BAG IV SCH ×3 (05:12→21:24)
[2017-10-19] MEDS ORDERED: PREDNISONE PO STA (08:09)
--- NOTE | 2017-10-19 10:50 | CT ---
EXAM: CT abdomen pelvis with contrast HISTORY: Concern for abscess with history of diverticulum COMPARISON: CT abdomen pelvis 10/16/2017 TECHNIQUE: Serial axial images of the abdomen pelvis were performed after 100 mL is of Omnipaque IV contrast was administered. These were obtained from the lung bases through the inferior pelvis. FINDINGS: The lung bases are clear. The liver demonstrates a round low attenuation lesion in the right hepatic lobe measuring 1.4 x 1.2 c entimeters. This is unchanged from prior examination. There is a 0.4 cm low attenuation lesion in th e caudate. No additional hepatic lesion is identified. The gallbladder is unchanged with a small foc al calcification likely representing an adherent stone.. The adrenal glands are unremarkable. The k idneys are unremarkable. The spleen is unremarkable. The pancreas is unremarkable. The stomach is d istended. Small bowel in the abdomen pelvis is unremarkable. The colon demonstrates diverticulosis of the sigm oid colon with inflammatory ground-glass in the region of the sigmoid which is mildly improved in com parison to prior exam. The air-fluid collection noted on prior examination is redemonstrated measuri ng 1.8 x 8-0.5 cm. This has decreased since prior examination. 3.2 x 2.4 cm. There is no significa nt wall thickening to suggest abscess. The appendix is normal. There is no free air or free fluid. The urinary bladder is distended. The uterus is unremarkable. The osseous structures demonstrate de generative disease of the spine. IMPRESSION: 1. Sigmoid diverticulitis/mild inflammation. The focal air-fluid level/collection seen on prior exa mination has decreased in size. This demonstrates a thin-walled which is not suggestive of an absces s. 2. Low attenuation lesions in the liver are not significantly changed in comparison to prior study. If further evaluation is indicated, ultrasound is recommended. 3. Gallbladder is unchanged with punctate focal calcification in the gallbladder fundus likely repres enting an adherent stone.
[2017-10-19] MEDS: PROTONIX IV IVP SCH (11:11)
[2017-10-19] MEDS: ZESTORETIC 20-12.5 MG TAB PO SCH ×2 (11:11→21:25)
[2017-10-19] MEDS: PRAVACHOL PO SCH (11:11)
[2017-10-19] MEDS: ASPIRIN CHEWABLE PO SCH (11:11)
[2017-10-19] MEDS: MOMETASONE FUROATE INH SCH ×2 (11:17→21:25)
[2017-10-19] MEDS: PROAIR HFA IH SCH ×4 (11:17→21:25)
[2017-10-19] MEDS: SODIUM CHLORIDE 1,000 ML IV SCH (13:26)
--- NOTE | 2017-10-19 13:29 | PCM.PROG ---
Attending Provider: ATTENDING PROVIDER: Dr. MILES JACKSON This patient is seen with Sarah Nuñez, Nurse Practitioner. DATE OF SERVICE: 10/19/17 SUBJECTIVE: This 72 year old WHITE/ F was hospitalized 10/16/17. The patient is sitting in bed, alert. She is NPO this morning for CT of the abdomen with IV contrast. She is still unable to eat without nausea and abdominal pain. REVIEW OF SYSTEMS: CONSTITUTIONAL: No night sweats. No fatigue, malaise, lethargy. No fever or chills. HEENT: Eyes: No visual changes. No eye pain. No eye discharge. ENT: No runny nose. No epistaxis. No sinus pain. No odynophagia. No congestion. RESPIRATORY: No cough, no congestion. No hemoptysis. No shortness of breath. CARDIOVASCULAR: No angina symptoms. No CHF symptoms. No atypical chest pain for CAD. No palpitations. No orthopnea.. GASTROINTESTINAL: Positive for nausea and abdominal pain. No vomiting. No diarrhea or constipation. No hematemesis. No hematochezia. GENITOURINARY: No urgency. No frequency. No dysuria. No hematuria. No obstructive symptoms. No discharge. No pain. No significant abnormal bleeding. MUSCULOSKELETAL: No musculoskeletal pain; no joint swelling. NEUROLOGICAL: Awake, alert, oriented to time, place and person. No headache. No neck pain. No syncope. No seizures. No dizziness. PSYCHIATRIC: Not anxious. No depression. No suicidal thoughts. No homicidal thoughts. SKIN: No rash. No lesions. No wounds. ENDOCRINE: No unexplained weight loss. No weight gain. HEMATOLOGIC/LYMPHATIC: No anemia. No purpura. No petechiae. No prolonged or excessive bleeding. No palpable lymph nodes. PHYSICAL EXAMINATION: GENERAL: The patient is awake, alert and oriented, lying in bed in no distress. VITAL SIGNS: Temperature 97.5 F, Pulse 69, Respiratory Rate 14, BP 146/70, Pulse Ox 96% HEENT: Head normocephalic, atraumatic. Eyes: Extraocular muscles are intact. Pupils are equal, round and reactive to light and accommodation. Ears: No lesions. Nose appeared normal. Throat: No exudate or erythema. NECK: Supple. No JVD, no carotid bruit. No lymphadenopathy or thyromegaly. LUNGS: Diminished breath sounds. Clear to auscultation. Percussion note normal. Chest symmetrical. HEART: S1, S2, no S3. No murmurs. No cyanosis or clubbing. No ascites. Pulses: Dorsalis pedis and posterior tibial pulses +1 to +2 both sides. ABDOMEN: Soft. Non-tender. Bowel sounds active. No CVA tenderness. No mass felt. EXTREMITIES: No edema. Full range of motion of all extremities, equal. NEUROLOGIC: No focal deficit. Cranial nerves II through XII are grossly intact. No headache, no double vision or headache. SKIN: Not dry. Intact. Turgor-normal. LYMPHATIC: No palpable lymph nodes/no lymphedema. MUSCULOSKELETAL: Normal joints with no swelling. Muscle tone is normal. LAB REVIEW: 10/19/17 04:30 10/19/17 04:30 10/19/17 04:30: Sodium 139, Potassium 3.5, Chloride 107, Carbon Dioxide 24, Anion Gap 11.5, BUN 19 H, Creatinine 0.85, Estimated GFR (MDRD) 65.00, BUN/ Creatinine Ratio 22.35, Glucose 118 H, Calcium 9.8, Total Bilirubin 0.5, AST 25 , ALT 38, Alkaline Phosphatase 39 L, Total Protein 5.8, Albumin 3.1 L, Globulin 2.7, Albumin/Globulin Ratio 1.15 10/19/17 04:30: WBC 12.16 H D, RBC 4.07 L, Hgb 11.9 L, Hct 35.7 L, MCV 87.7, MCH 29.2, MCHC 33.3, RDW Coeff of Cely 14.3, Plt Count 215, Immature Gran % (Auto ) 0.3, Neut % (Auto) 90.1, Lymph % (Auto) 5.3 L, [place] % (Auto) 4.1, Eos % (Auto ) 0.0, Baso % (Auto) 0.2, Immature Gran # (Auto) 0.0, Neut # (Auto) 10.9 H, Lymph # (Auto) 0.7, [place] # (Auto) 0.5, Eos # (Auto) 0.0, Baso # (Auto) 0.0 ASSESSMENT: 1. Questionable diverticular abscess per CT with possible early diverticulitis. 2. Acute gastroenteritis seems to be resolving. 3. Chronic lung disease. 4. Morbid obesity. PLAN: 1. Prednisone 20 mg - for pre treatment for possible allergy to contrast. 2. CT with IV and oral contrast today. Plan and coordination of the patient's care discussed in the presence of Aircraft Systems Repairer and nurse. CONDITION: Stable SCRIBED BY: FAUSTINO ANGUIANO Pantographer scribed while in presence of service performed by Dr. Jackson/Sarah Nuñez APRN on 10/19/17 ([id number])
[2017-10-19] MEDS: TYLENOL PO PRN (13:36)
[2017-10-19] MEDS: TORADOL IVP PRN (15:14)
[2017-10-20] MEDS: SODIUM CHLORIDE 1,000 ML IV SCH ×3 (02:56→19:40)
[2017-10-20] MEDS: FLAGYL 500 MG/100 ML 500 MG in PREMIX 100 ML NS 1 BAG IV SCH ×3 (04:05→21:12)
[2017-10-20] MEDS: PROAIR HFA IH SCH ×4 (09:25→21:11)
[2017-10-20] MEDS: ZESTORETIC 20-12.5 MG TAB PO SCH ×2 (09:25→21:11)
[2017-10-20] MEDS: ASPIRIN CHEWABLE PO SCH (09:25)
[2017-10-20] MEDS: MOMETASONE FUROATE INH SCH ×2 (09:25→21:12)
[2017-10-20] MEDS: PROTONIX PO SCH ×2 (09:26→17:48)
[2017-10-20] MEDS: PRAVACHOL PO SCH (09:26)
--- NOTE | 2017-10-20 09:28 | PCM.PROG ---
Attending Provider: ATTENDING PROVIDER: Dr. MILES JACKSON This patient is seen with Sarah Nuñez, Nurse Practitioner. DATE OF SERVICE: 10/20/17 SUBJECTIVE: This 72 year old WHITE/ F was hospitalized 10/16/17. The patient is lying in bed, alert, resting comfortably. She had pain after eating last night. CT scan showed diverticulitis, no abscess. REVIEW OF SYSTEMS: CONSTITUTIONAL: Weakness. No night sweats. No malaise, lethargy. No fever or chills. HEENT: Eyes: No visual changes. No eye pain. No eye discharge. ENT: No runny nose. No epistaxis. No sinus pain. No odynophagia. No congestion. RESPIRATORY: No cough, no congestion. No hemoptysis. No shortness of breath. CARDIOVASCULAR: No angina symptoms. No CHF symptoms. No atypical chest pain for CAD. No palpitations. No orthopnea.. GASTROINTESTINAL: Nausea. Intermittent left abdominal pain. No vomiting. No diarrhea or constipation. No hematemesis. No hematochezia. GENITOURINARY: No urgency. No frequency. No dysuria. No hematuria. No obstructive symptoms. No discharge. No pain. No significant abnormal bleeding. MUSCULOSKELETAL: No musculoskeletal pain; no joint swelling. NEUROLOGICAL: Awake, alert, oriented to time, place and person. No headache. No neck pain. No syncope. No seizures. No dizziness. PSYCHIATRIC: Not anxious. No depression. No suicidal thoughts. No homicidal thoughts. SKIN: No rash. No lesions. No wounds. ENDOCRINE: No unexplained weight loss. No weight gain. HEMATOLOGIC/LYMPHATIC: No anemia. No purpura. No petechiae. No prolonged or excessive bleeding. No palpable lymph nodes. PHYSICAL EXAMINATION: GENERAL: The patient is awake, alert and oriented, lying in bed in no distress. VITAL SIGNS: Temperature 98.1 F, Pulse 68, Respiratory Rate 16, BP 141/73, Pulse Ox 96% HEENT: Head normocephalic, atraumatic. Eyes: Extraocular muscles are intact. Pupils are equal, round and reactive to light and accommodation. Ears: No lesions. Nose appeared normal. Throat: No exudate or erythema. NECK: Supple. No JVD, no carotid bruit. No lymphadenopathy or thyromegaly. LUNGS: Clear to auscultation. Percussion note normal. Chest symmetrical. HEART: S1, S2, no S3. No murmurs. No cyanosis or clubbing. No ascites. Pulses: Dorsalis pedis and posterior tibial pulses +1 to +2 both sides. ABDOMEN: Soft. Left upper quadrant tenderness. Bowel sounds active. No CVA tenderness. No mass felt. EXTREMITIES: No edema. Full range of motion of all extremities, equal. NEUROLOGIC: No focal deficit. Cranial nerves II through XII are grossly intact. No headache, no double vision or headache. SKIN: Not dry. Intact. Turgor-normal. LYMPHATIC: No palpable lymph nodes/no lymphedema. MUSCULOSKELETAL: Normal joints with no swelling. Muscle tone is normal. LAB REVIEW: 10/20/17 04:30 10/20/17 04:30 10/20/17 04:30: Sodium 139, Potassium 3.5, Chloride 107, Carbon Dioxide 26, Anion Gap 9.5, BUN 19 H, Creatinine 0.82, Estimated GFR (MDRD) 68.00, BUN/ Creatinine Ratio 23.17, Glucose 96, Calcium 9.4, Total Bilirubin 0.4, AST 25, ALT 34, Alkaline Phosphatase 38 L, Total Protein 5.2 L, Albumin 2.8 L, Globulin 2.4, Albumin/Globulin Ratio 1.17 10/20/17 04:30: WBC 9.00, RBC 3.82 L, Hgb 11.2 L, Hct 33.9 L, MCV 88.7, MCH 29.3 , MCHC 33.0, RDW Coeff of Cely 14.6, Plt Count 196, Immature Gran % (Auto) 1.1, Neut % (Auto) 79.0, Lymph % (Auto) 12.0, [place] % (Auto) 7.8, Eos % (Auto) 0.0, Baso % (Auto) 0.1, Immature Gran # (Auto) 0.1, Neut # (Auto) 7.1 H, Lymph # ( Auto) 1.1, [place] # (Auto) 0.7, Eos # (Auto) 0.0, Baso # (Auto) 0.0 ASSESSMENT: 1. Acute diverticulitis, no abscess 2. Fatty liver 3. Acute gastroenteritis seems to be resolving. 4. Chronic lung disease. 5. Morbid obesity. PLAN: 1. Protonix 40 mg p.o. b.i.d. 2. [place] diet 3. D/C IV Protonix Plan and coordination of the patient's care discussed in the presence of Shower Room Attendant and nurse. CONDITION: Stable SCRIBED BY: Lillie BEAVERist scribed while in presence of service performed by Dr. Jackson/Sarah Nuñez APRN on 10/20/17 ([id number])
[2017-10-20] MEDS: TORADOL IVP PRN (13:59)
[2017-10-21] MEDS: TORADOL IVP PRN ×2 (00:47→13:30)
[2017-10-21] MEDS: PROTONIX PO SCH ×2 (05:47→16:43)
[2017-10-21] MEDS: FLAGYL 500 MG/100 ML 500 MG in PREMIX 100 ML NS 1 BAG IV SCH ×3 (05:47→21:06)
[2017-10-21] MEDS: ASPIRIN CHEWABLE PO SCH (08:34)
[2017-10-21] MEDS: ZESTORETIC 20-12.5 MG TAB PO SCH ×2 (08:34→21:08)
[2017-10-21] MEDS: PROAIR HFA IH SCH ×4 (08:35→21:06)
[2017-10-21] MEDS: PRAVACHOL PO SCH (08:35)
[2017-10-21] MEDS: MOMETASONE FUROATE INH SCH ×2 (08:35→21:07)
[2017-10-21] MEDS: ZOFRAN 4 MG/2 ML IVP SCH ×3 (11:28→21:18)
[2017-10-21] MEDS: SODIUM CHLORIDE 1,000 ML IV SCH ×2 (12:32→13:32)
--- NOTE | 2017-10-21 13:42 | DI ---
EXAM: Abdomen one view HISTORY: Abdominal distension, abdominal pain COMPARISON: None TECHNIQUE: Single view abdomen was performed. FINDINGS: There are no dilated loops of small bowel. Residual contrast in the colon. There are no abn ormal calcifications. There are no acute abnormalities of the bones. IMPRESSION: No acute abnormality identified.
[2017-10-22] MEDS: FLAGYL 500 MG/100 ML 500 MG in PREMIX 100 ML NS 1 BAG IV SCH ×3 (05:07→20:13)
[2017-10-22] MEDS: TORADOL IVP PRN ×2 (05:13→20:14)
[2017-10-22] MEDS: PROTONIX PO SCH ×2 (05:32→17:09)
[2017-10-22] MEDS: ZOFRAN 4 MG/2 ML IVP SCH ×4 (05:54→20:13)
[2017-10-22] MEDS: ASPIRIN CHEWABLE PO SCH (08:40)
[2017-10-22] MEDS: MOMETASONE FUROATE INH SCH ×2 (08:41→20:16)
[2017-10-22] MEDS: PRAVACHOL PO SCH (08:41)
[2017-10-22] MEDS: PROAIR HFA IH SCH ×4 (08:41→20:15)
[2017-10-22] MEDS: ZESTORETIC 20-12.5 MG TAB PO SCH ×2 (08:41→20:14)
[2017-10-22] MEDS: K-DUR PO SCH ×3 (14:03→20:14)
[2017-10-22] MEDS: SODIUM CHLORIDE 1,000 ML IV SCH (20:15)
[2017-10-23] MEDS: K-DUR PO SCH ×5 (00:50→17:32)
[2017-10-23] MEDS: ZOFRAN 4 MG/2 ML IVP SCH ×4 (05:46→21:04)
[2017-10-23] MEDS: FLAGYL 500 MG/100 ML 500 MG in PREMIX 100 ML NS 1 BAG IV SCH ×3 (05:47→20:51)
--- NOTE | 2017-10-23 08:40 | CT ---
Exam: CT abdomen pelvis without intravenous contrast. Comparison: 10/19/2017. Reason for exam: Abdominal distension, pain and nausea. FINDINGS: No pleural effusion, or focal consolidation in the partially imaged lung bases. Similar appearing hypodensity in the right hepatic lobe on axial image number 20. The liver is lower in attenuation in the spleen. The splenic parenchyma, adrenal glands, and pancreas appear grossly unremarkable within limitations o f a noncontrasted study. There is a small calcific densities seen in the gallbladder wall on axial image number 31. There is a 7 mm high density cystic structure in the left superior renal pole on axial image number 2 6. No hydronephrosis or ureterolithiasis in either kidney. The bladder is grossly unremarkable. No focal small bowel dilatation or transition point. The appendix is unremarkable. No intra-abdominal free air or pelvic free fluid. Diverticular disease is seen throughout the large intestine without surrounding inflammatory change. There is a small only fat containing periumbilical hernia. There is a minimal air-filled collection in the region of the rectosigmoid that appears increased in size when compared to the previous exam. No suspicious appearing osteoblastic or osteolytic lesions. There are pars defects bilaterally at L5-S1. Impression: 1. Air filled structure adjacent to the rectosigmoid has increased in size when compared to the prev ious exam and appears similar to the examination performed on 10/16/2017. Imaging findings can be see n with an enteric cyst or diverticula. Imaging findings are not suggestive of abscess as the wall is thin and there is no significant surrounding inflammatory change. Imaging is recommended. 2. Similar appearing hepatic hypodensity. 3. Diverticulosis without evidence of diverticulitis. 4. Hepatic steatosis. 5. Small calcific density in the gallbladder may represent gallbladder wall calcification versus an adherent stone.
--- NOTE | 2017-10-23 08:44 | US ---
EXAM: ULTRASOUND ABDOMEN LIMITED HISTORY: Abdominal pain, nausea FINDINGS: Ultrasound abdomen, limited. Matos-scale ultrasound and color Doppler was performed. Live r size was measured at 16.6 cm, within normal limits. The right hepatic lobe had a 1.8 x 1.8 x 1.3 cm partially septated cystic mass. No other liver lesions identified. No intrahepatic biliary dilatat ion. The main portal vein is patent and hepatopedal. The gallbladder contained sludge and nonmobile echogenic foci which were mucosal based possibly repre senting polyps or adherent nonshadowing calculi, the latter measuring up to 8 mm. No pericholecystic ascites. The general gallbladder wall thickness was mildly thickened at 0.34 cm and the common bile duct diameter was normal 0.39 cm. Pancreas was poorly seen. IMPRESSION: 1. Gallbladder sludge and nonshadowing mucosal based echogenic foci which may represent polyps or ad herent nonshadowing calculi. Gallbladder wall thickness in general is mildly increased at 0.34 cm. No ascites or common bile duct dilatation. 2. Slightly complex right hepatic lobe cyst. This can be followed by ultrasound.
[2017-10-23] MEDS: PROTONIX PO SCH ×2 (09:13→17:31)
[2017-10-23] MEDS: ASPIRIN CHEWABLE PO SCH (09:13)
[2017-10-23] MEDS: ZESTORETIC 20-12.5 MG TAB PO SCH ×2 (09:14→20:50)
[2017-10-23] MEDS: PRAVACHOL PO SCH (09:14)
[2017-10-23] MEDS: MOMETASONE FUROATE INH SCH ×2 (09:15→20:50)
[2017-10-23] MEDS: PROAIR HFA IH SCH ×4 (09:15→20:50)
[2017-10-23] MEDS: SODIUM CHLORIDE 1,000 ML IV SCH ×2 (13:26→22:40)
[2017-10-23] MEDS: TORADOL IVP PRN (13:45)
--- NOTE | 2017-10-23 13:58 | PN ---
DATE OF SERVICE: 10/22/17 SUBJECTIVE: 72-year-old female hospitalized with acute gastroenteritis type of symptoms with some weight loss, has been treated with IV fluids. The patient, after further investigation seems like she has acute diverticulitis, seems to be resolving with Flagyl. REVIEW OF SYSTEMS: CONSTITUTIONAL: No night sweats. No fatigue, malaise, lethargy. No fever or chills. HEENT: Eyes: No visual changes. No eye pain. No eye discharge. ENT: No runny nose. No epistaxis. No sinus pain. No sore throat. No odynophagia. No congestion. RESPIRATORY: No cough, no congestion. No hemoptysis. No shortness of breath. CARDIOVASCULAR: No angina symptoms. No CHF symptoms. No atypical chest pain for CAD. No palpitations. No orthopnea. No PND. GASTROINTESTINAL: Appetite somewhat better. Mild abdominal discomfort; no BM after she stopped having diarrhea two days ago. No nausea or vomiting. No diarrhea or constipation. No hematemesis. No hematochezia. GENITOURINARY: No urgency. No frequency. No dysuria. No hematuria. No obstructive symptoms. No discharge. No pain. No significant abnormal bleeding. MUSCULOSKELETAL: No musculoskeletal pain; no joint swelling. NEUROLOGICAL: No headache. No neck pain. No syncope. No seizures. No dizziness. PSYCHIATRIC: Not anxious. No depression. No suicidal thoughts. No homicidal thoughts. SKIN: No rash. No lesions. No wounds. ENDOCRINE: No unexplained weight loss. No weight gain. HEMATOLOGIC/LYMPHATIC: No anemia. No purpura. No petechiae. No prolonged or excessive bleeding. No palpable lymph nodes. PHYSICAL EXAMINATION: GENERAL: The patient is oriented to time, place and person. VITAL SIGNS: Temperature 97.7, pulse 69, respiratory rate 20, BP 160/80, pulse ox 94%. HEENT: Head normocephalic, atraumatic. Eyes: Extraocular muscles are intact. Pupils are equal, round and reactive to light and accommodation. Ears: No lesions. Nose appeared normal. Throat: No exudate or erythema. NECK: Supple. No JVD, no carotid bruit. No lymphadenopathy or thyromegaly. LUNGS: Decreased breath sounds but clear to auscultation. Percussion note normal. Chest symmetrical. HEART: S1, S2, no S3. No murmurs. No cyanosis or clubbing. No ascites. Pulses: Dorsalis pedis and posterior tibial pulses +1 to +2 both sides. ABDOMEN: Soft. Nontender. Bowel sounds active. No CVA tenderness. No mass felt. EXTREMITIES: No edema. Full range of motion of all extremities, equal. NEUROLOGIC: No focal deficit. Cranial nerves II through XII are grossly intact. No headache, no double vision or headache. SKIN: Not dry. Intact. Turgor - normal. LYMPHATIC: No palpable lymph nodes/no lymphedema. MUSCULOSKELETAL: Normal joints with no swelling. Muscle tone is normal. LABS: Hemoglobin 11.6, hematocrit 35, WBC 6,000, normal differential. Creatinine 0.7, BUN 12, potassium 2.9. ASSESSMENT: 1. ACUTE GASTROENTERITIS SEEMS TO HAVE RESOLVED 2. POSSIBILITY OF DIVERTICULITIS BEING TREATED WITH FLAGYL 3. HYPOKALEMIA 4. MORBID OBESITY 5. HYPERTENSION 6. COPD 7. DYSLIPIDEMIA PLAN: 1. Continue the same treatment 2. Continue Flagyl 3. Will do CT scan of the abdomen in the morning 4. Flat plate of the abdomen yesterday was negative for any bowel obstruction CONDITION: Stable. ADDENDUM: The patient is given 20 mEq K-Tab four tablets today and four tomorrow. Will monitor potassium level. TIME SPENT: More than 30 minutes. Plan and coordination of the patient's care discussed in the presence of nurse. BRAEDEN
--- NOTE | 2017-10-23 15:00 | PN ---
DATE OF SERVICE: 10/18/17 SUBJECTIVE: 72-year-old female hospitalized with acute gastritis type of symptoms. The patient probably possibly had acute diverticulitis and dehydration. The patient' s condition is stable. REVIEW OF SYSTEMS: CONSTITUTIONAL: No night sweats. No fatigue, malaise, lethargy. No fever or chills. HEENT: Eyes: No visual changes. No eye pain. No eye discharge. ENT: No runny nose. No epistaxis. No sinus pain. No sore throat. No odynophagia. No congestion. RESPIRATORY: No cough, no congestion. No hemoptysis. No shortness of breath. CARDIOVASCULAR: No angina symptoms. No CHF symptoms. No atypical chest pain for CAD. No palpitations. No orthopnea. No PND. GASTROINTESTINAL: Mild abdominal pain off and on, nonspecific mostly generalized upper quadrant. No nausea or vomiting. No diarrhea or constipation. No hematemesis. No hematochezia. GENITOURINARY: No urgency. No frequency. No dysuria. No hematuria. No obstructive symptoms. No discharge. No pain. No significant abnormal bleeding. MUSCULOSKELETAL: No musculoskeletal pain; no joint swelling. NEUROLOGICAL: No headache. No neck pain. No syncope. No seizures. No dizziness. PSYCHIATRIC: Not anxious. No depression. No suicidal thoughts. No homicidal thoughts. SKIN: No rash. No lesions. No wounds. ENDOCRINE: No unexplained weight loss. No weight gain. HEMATOLOGIC/LYMPHATIC: No anemia. No purpura. No petechiae. No prolonged or excessive bleeding. No palpable lymph nodes. PHYSICAL EXAMINATION: GENERAL: The patient is oriented to time, place and person. VITAL SIGNS: Temperature 97.6, pulse 70, respiratory rate 18, BP 138/65, pulse ox 96%. HEENT: Head normocephalic, atraumatic. Eyes: Extraocular muscles are intact. Pupils are equal, round and reactive to light and accommodation. Ears: No lesions. Nose appeared normal. Throat: No exudate or erythema. NECK: Supple. No JVD, no carotid bruit. No lymphadenopathy or thyromegaly. LUNGS: Clear to auscultation. Percussion note normal. Chest symmetrical. HEART: S1, S2, no S3. No murmurs. No cyanosis or clubbing. No ascites. Pulses: Dorsalis pedis and posterior tibial pulses +1 to +2 both sides. ABDOMEN: Soft. Nontender. Bowel sounds active. No CVA tenderness. No mass felt. EXTREMITIES: No edema. Full range of motion of all extremities, equal. NEUROLOGIC: No focal deficit. Cranial nerves II through XII are grossly intact. No headache, no double vision or headache. SKIN: Not dry. Intact. Turgor - normal. LYMPHATIC: No palpable lymph nodes/no lymphedema. MUSCULOSKELETAL: Normal joints with no swelling. Muscle tone is normal. LABS: Hemoglobin 11.6, hematocrit 34, WBC 6,700, normal differential. Creatinine 0.8, BUN 14. ASSESSMENT: 1. ABDOMINAL PAIN WITH DEHYDRATION 2. NAUSEA AND VOMITING, COULD BE ACUTE GASTROENTERITIS 3. POSSIBILITY OF ACUTE DIVERTICULITIS 4. SOME POSSIBILITY OF COLONIC ABSCESS 5. RIGHT HEPATIC LOBE ABNORMALITY All CT scan report reviewed with some abnormality. The patient is being given Prednisone and she is being prepared for IV contrast using IV contrast with CT scan of the abdomen. CONDITION: STABLE TIME SPENT: More than 30 minutes. Plan and coordination of the patient's care discussed in the presence of nurse. BRAEDEN
--- NOTE | 2017-10-23 15:04 | PN ---
DATE OF SERVICE: 10/20/17 SUBJECTIVE: 72-year-old white female hospitalized with acute gastritis, dehydration, gastroenteritis type of symptoms. The patient possibly has acute diverticulitis , early stage. CT scan with contrast was negative. The patient did not have any reaction with the IV dye. Cardiovascular status is stable. The patient is going to be treated with Flagyl for acute diverticulitis. CONDITION: Stable. The patient was seen and examined with the nurse practitioner. TIME SPENT: More than 30 minutes. Plan and coordination of the patient's care discussed in the presence of nurse. BRAEDEN
--- NOTE | 2017-10-23 15:07 | PN ---
DATE OF SERVICE: 10/19/17 SUBJECTIVE: The patient is doing well. She still has abdominal discomfort with epigastric discomfort. PHYSICAL EXAMINATION: HEENT: Head normocephalic, atraumatic. Eyes: Extraocular muscles are intact. Pupils are equal, round and reactive to light and accommodation. Ears: No lesions. Nose appeared normal. Throat: No exudate or erythema. NECK: Supple. No JVD, no carotid bruit. No lymphadenopathy or thyromegaly. LUNGS: Clear to auscultation. Percussion note normal. Chest symmetrical. HEART: S1, S2, no S3. No murmurs. No cyanosis or clubbing. No ascites. Pulses: Dorsalis pedis and posterior tibial pulses +1 to +2 both sides. ABDOMEN: Soft. Nontender. Bowel sounds active. No CVA tenderness. No mass felt. EXTREMITIES: No edema. Full range of motion of all extremities, equal. NEUROLOGIC: No focal deficit. Cranial nerves II through XII are grossly intact. No headache, no double vision or headache. SKIN: Not dry. Intact. Turgor - normal. LYMPHATIC: No palpable lymph nodes/no lymphedema. MUSCULOSKELETAL: Normal joints with no swelling. Muscle tone is normal. ASSESSMENT: The patient is being treated for acute diverticulitis. There are no physical positive findings. CONDITION: Stable. The patient was seen and examined with nurse practitioner. TIME SPENT: More than 30 minutes. Plan and coordination of the patient's care discussed in the presence of nurse. BRAEDEN
[2017-10-24] MEDS: FLAGYL 500 MG/100 ML 500 MG in PREMIX 100 ML NS 1 BAG IV SCH ×2 (04:45→12:47)
[2017-10-24] MEDS: ZOFRAN 4 MG/2 ML IVP SCH ×2 (06:11→12:47)
[2017-10-24] MEDS: PROTONIX PO SCH (06:11)
--- NOTE | 2017-10-24 08:28 | PN ---
DATE OF SERVICE: 10/23/17 SUBJECTIVE: 72 year old white female hospitalized with dehydration and acute gastroenteritis type of symptoms. The patient's condition has improved. Her CT scan is more or less nonspecific. Has raised the possibility gallbladder disease. Unable to hiatus scan today so she will be discharged home tomorrow and hiatus scan done as an outpatient. Her diverticulitis type of symptoms are better, still has mild discomfort in her abdomen which seems to be nonspecific. The patient is almost morbidly obese and advised to lose weight. The patient was seen and examined with Nurse Practitioner. TIME SPENT: More than 30 minutes. Plan and coordination of the patient's care discussed in the presence of nurse. BRAEDEN
--- NOTE | 2017-10-24 09:49 | PCM.PROG ---
Attending Provider: ATTENDING PROVIDER: Dr. MILES JACKSON This patient is seen with Sarah Nuñez, Nurse Practitioner. DATE OF SERVICE: 10/24/17 SUBJECTIVE: This 72 year old WHITE/ F was hospitalized 10/16/17. The patient is sitting in chair, alert. She is still with pain after eating. Diarrhea slightly improved. REVIEW OF SYSTEMS: CONSTITUTIONAL: No night sweats. No fatigue, malaise, lethargy. No fever or chills. HEENT: Eyes: No visual changes. No eye pain. No eye discharge. ENT: No runny nose. No epistaxis. No sinus pain. No odynophagia. No congestion. RESPIRATORY: No cough, no congestion. No hemoptysis. No shortness of breath. CARDIOVASCULAR: No angina symptoms. No CHF symptoms. No atypical chest pain for CAD. No palpitations. No orthopnea.. GASTROINTESTINAL: Positive for bloating and diarrhea. Pain after eating. No nausea or vomiting. No diarrhea or constipation. No hematemesis. No hematochezia. GENITOURINARY: No urgency. No frequency. No dysuria. No hematuria. No obstructive symptoms. No discharge. No pain. No significant abnormal bleeding. MUSCULOSKELETAL: No musculoskeletal pain; no joint swelling. NEUROLOGICAL: Awake, alert, oriented to time, place and person. No headache. No neck pain. No syncope. No seizures. No dizziness. PSYCHIATRIC: Not anxious. No depression. No suicidal thoughts. No homicidal thoughts. SKIN: No rash. No lesions. No wounds. ENDOCRINE: No unexplained weight loss. No weight gain. HEMATOLOGIC/LYMPHATIC: No anemia. No purpura. No petechiae. No prolonged or excessive bleeding. No palpable lymph nodes. PHYSICAL EXAMINATION: GENERAL: The patient is awake, alert and oriented, sitting in chair in no distress. VITAL SIGNS: Temperature 98.1 F, Pulse 64, Respiratory Rate 16, BP 161/79, Pulse Ox 96% HEENT: Head normocephalic, atraumatic. Eyes: Extraocular muscles are intact. Pupils are equal, round and reactive to light and accommodation. Ears: No lesions. Nose appeared normal. Throat: No exudate or erythema. NECK: Supple. No JVD, no carotid bruit. No lymphadenopathy or thyromegaly. LUNGS: Clear to auscultation. Percussion note normal. Chest symmetrical. HEART: S1, S2, no S3. No murmurs. No cyanosis or clubbing. No ascites. Pulses: Dorsalis pedis and posterior tibial pulses +1 to +2 both sides. ABDOMEN: Soft. Non-tender. Bowel sounds active. No CVA tenderness. No mass felt. EXTREMITIES: No edema. Full range of motion of all extremities, equal. NEUROLOGIC: No focal deficit. Cranial nerves II through XII are grossly intact. No headache, no double vision or headache. SKIN: Not dry. Intact. Turgor-normal. LYMPHATIC: No palpable lymph nodes/no lymphedema. MUSCULOSKELETAL: Normal joints with no swelling. Muscle tone is normal. LAB REVIEW: 10/24/17 05:00 10/24/17 05:00 10/24/17 05:00: Sodium 137, Potassium 3.9, Chloride 104, Carbon Dioxide 29, Anion Gap 7.9, BUN 13, Creatinine 0.82, Estimated GFR (MDRD) 68.00, BUN/ Creatinine Ratio 15.85, Glucose 93, Calcium 9.6, Total Bilirubin 0.6, AST 28, ALT 33, Alkaline Phosphatase 33 L, Total Protein 5.0 L, Albumin 2.7 L, Globulin 2.3, Albumin/Globulin Ratio 1.17 10/24/17 05:00: WBC 6.22, RBC 3.76 L, Hgb 11.0 L, Hct 33.4 L, MCV 88.8, MCH 29.3 , MCHC 32.9, RDW Coeff of Cely 14.4, Plt Count 211, Immature Gran % (Auto) 0.3, Neut % (Auto) 65.6, Lymph % (Auto) 22.3, [place] % (Auto) 7.4, Eos % (Auto) 3.9, Baso % (Auto) 0.5, Immature Gran # (Auto) 0.0, Neut # (Auto) 4.1, Lymph # (Auto ) 1.4, [place] # (Auto) 0.5, Eos # (Auto) 0.2, Baso # (Auto) 0.0 ASSESSMENT: 1. Acute diverticulitis, no abscess, resolved. 2. Possible gallbladder dysfunction. 3. Fatty liver. 4. Acute gastroenteritis seems to be resolving. 5. Chronic lung disease. 6. Morbid obesity. PLAN: 1. D/C home 2. Schedule for HIDA scan tomorrow as outpatient 3. Continue p.o. Flagyl 4. Protonix 40 mg daily 5. Potassium 10 mEq daily 6. Followup with Dr. Jackson/Sarah Nuñez APRN on or Monday Plan and coordination of the patient's care discussed in the presence of Commercial Intern and nurse. CONDITION: Stable SCRIBED BY: FAUSTINO ANGUIANO Meat Grading Machine Operator scribed while in presence of service performed by Dr. Jackson/Sarah Nuñez APRN on 10/24/17 ([id number])
[2017-10-24] MEDS: TYLENOL PO PRN (10:02)
[2017-10-24] MEDS: ZESTORETIC 20-12.5 MG TAB PO SCH (10:02)
[2017-10-24] MEDS: PRAVACHOL PO SCH (10:02)
[2017-10-24] MEDS: ASPIRIN CHEWABLE PO SCH (10:02)
[2017-10-24] MEDS: PROAIR HFA IH SCH (10:03)
[2017-10-24] MEDS: MOMETASONE FUROATE INH SCH (10:03)
--- NOTE | 2017-10-24 10:39 | PN ---
DATE OF SERVICE: 10/21/17 SUBJECTIVE: The patient was seen and examined with Nurse Practitioner. 72 year old white female was hospitalized with acute gastritis type of symptoms with gastroenteritis, likely has early diverticulitis. The patient has mild abdominal distention. Bowel sounds are active. PHYSICAL EXAMINATION: HEENT: Head normocephalic, atraumatic. Eyes: Extraocular muscles are intact. Pupils are equal, round and reactive to light and accommodation. Ears: No lesions. Nose appeared normal. Throat: No exudate or erythema. NECK: Supple. No JVD, no carotid bruit. No lymphadenopathy or thyromegaly. LUNGS: Clear to auscultation. Percussion note normal. Chest symmetrical. HEART: S1, S2, no S3. No murmurs. No cyanosis or clubbing. No ascites. Pulses: Dorsalis pedis and posterior tibial pulses +1 to +2 both sides. ABDOMEN: Soft. Nontender. Bowel sounds active. No CVA tenderness. No mass felt. EXTREMITIES: No edema. Full range of motion of all extremities, equal. NEUROLOGIC: No focal deficit. Cranial nerves II through XII are grossly intact. No headache, no double vision or headache. SKIN: Not dry. Intact. Turgor - normal. LYMPHATIC: No palpable lymph nodes/no lymphedema. MUSCULOSKELETAL: Normal joints with no swelling. Muscle tone is normal. LABS: Normal PLAN: 1. Increase IV fluids 2. X-ray of abdomen was negative for any bowel obstruction. The patient is up and about, condition improving. She is passing gas. TIME SPENT: More than 30 minutes. Plan and coordination of the patient's care discussed in the presence of nurse. BRAEDEN
[2017-10-24 11:13] VITALS: BP 152/75; TEMP 98
--- NOTE | 2017-10-24 11:58 | PN ---
DATE OF SERVICE: 10/21/17 SUBJECTIVE: The patient examined while sitting in the bed. She states that she feels that her abdomen is distended. She is still unable to eat. She is only able to eat a few spoons full of oatmeal with morning and then experienced left sided pain. She is not in any acute pain at the moment. REVIEW OF SYSTEMS: CONSTITUTIONAL: No night sweats. No fatigue, malaise, lethargy. No fever or chills. HEENT: Eyes: No visual changes. No eye pain. No eye discharge. ENT: No runny nose. No epistaxis. No sinus pain. No sore throat. No odynophagia. No congestion. RESPIRATORY: No cough, no congestion. No hemoptysis. No shortness of breath. CARDIOVASCULAR: No angina symptoms. No CHF symptoms. No atypical chest pain for CAD. No palpitations. No orthopnea. GASTROINTESTINAL: Abdominal pain. Nausea. Diarrhea, patient states she had about 7 loose stools last night. No hematemesis. No hematochezia. GENITOURINARY: No urgency. No frequency. No dysuria. No hematuria. No obstructive symptoms. No discharge. No pain. No significant abnormal bleeding. MUSCULOSKELETAL: No musculoskeletal pain; no joint swelling. NEUROLOGICAL: No headache. No neck pain. No syncope. No seizures. No dizziness. PSYCHIATRIC: Not anxious. No depression. No suicidal thoughts. No homicidal thoughts. SKIN: No rash. No lesions. No wounds. ENDOCRINE: No unexplained weight loss. No weight gain. HEMATOLOGIC/LYMPHATIC: No anemia. No purpura. No petechiae. No prolonged or excessive bleeding. No palpable lymph nodes. PHYSICAL EXAMINATION: HEENT: Head normocephalic, atraumatic. Eyes: Extraocular muscles are intact. Pupils are equal, round and reactive to light and accommodation. Ears: No lesions. Nose appeared normal. Throat: No exudate or erythema. NECK: Supple. No JVD, no carotid bruit. No lymphadenopathy or thyromegaly. LUNGS: Clear to auscultation. Percussion note normal. Chest symmetrical. HEART: S1, S2, no S3. No murmurs. No cyanosis or clubbing. No ascites. Pulses: Dorsalis pedis and posterior tibial pulses +1 to +2 both sides. ABDOMEN: Soft. Tenderness mild left upper quadrant which seems to be improving. Bowel sounds active. No CVA tenderness. No mass felt. Abdominal distention. EXTREMITIES: No edema. Full range of motion of all extremities, equal. NEUROLOGIC: No focal deficit. Cranial nerves II through XII are grossly intact. No headache, no double vision or headache. SKIN: Not dry. Intact. Turgor - normal. LYMPHATIC: No palpable lymph nodes/no lymphedema. MUSCULOSKELETAL: Normal joints with no swelling. Muscle tone is normal. ASSESSMENT: 1. Abdominal distention 2. Acute gastritis 3. Acute diverticulitis 4. Dehydration resolved 5. Weight loss PLAN: 1. We will decrease her IV fluids to 50cc an hour 2. We will get a plain abdominal film 3. Today they are unable to do an ultrasound of liver, we will do this on Monday. 4. Instructed to get an amylase and lipase 5. She has been complaining of her diet, will instruct them to do plain diet Will continue to monitor. TIME SPENT: More than 30 minutes. Plan and coordination of the patient's care discussed in the presence of nurse. BRAEDEN
--- NOTE | 2017-10-24 12:07 | CM.DICTOOL ---
ADMISSION: 10/16/17 14:00 DISCHARGE: 10/24/17 DATE OF SERVICE: 10/24/17 FINAL DIAGNOSIS DIVERTICULITIS, ACUTE (IMPROVED) GASTROENTERITIS, ACUTE (IMPROVED) DEHYDRATION, ACUTE (RESOLVED) WEIGHT LOSS (6-8 POUNDS/1 WEEK PRIOR TO ADMISSION) DIVERTICULOSIS (CT ABD/PELVIS 10/23/17) CHOLELITHIASIS/GALLBLADDER SLUDGE (CT ABD/PELVIS 10/20/17) HEPATIC STEATOSIS ASTHMATIC BRONCHITIS HYPERTENSION ANEMIA DYSLIPIDEMIA SLEEP APNEA OBESITY OSTEOARTHRITIS PREVIOUS SMOKER, STOPPED 20 YRS AGO LAST VITALS Temp Pulse Resp BP Pulse Ox 98.1 F 64 16 161/79 H 96 10/24/17 05:45 10/24/17 05:45 10/24/17 05:45 10/24/17 05:45 10/24/17 05:45 TAKE THESE MEDICATIONS AT HOME Albuterol Sulfate (Proair Hfa) 2 puff IH QID [facility] Last Admin: 10/24/17 10:03 Dose: 2 puff Aspirin (Aspirin Chewable) 81 mg PO DAILYWM [facility] Last Admin: 10/24/17 10:02 Dose: 81 mg Lisinopril/HCTZ (Zestoretic 20-12.5 Mg Tab) 1 tab PO BID [facility] Last Admin: 10/24/17 10:02 Dose: 1 tab Metronidazole 500 mg PO BID [facility] X7 DAYS Last Admin: 10/24/17 04:45 Dose: 100 mls/hr IV Mometasone Furoate [Asmanex Hfa] 1 inh INH BID [facility] Last Admin: 10/24/17 10:03 Dose: 1 inh Pantoprazole Sodium (Protonix) 40 mg PO BIDAC [facility] Last Admin: 10/24/17 06:11 Dose: 40 mg Potassium CHL (K-Tab) 10 meq PO DAILY X7 DAYS Pravastatin Sodium (Pravachol) 40 mg PO DAILY [facility] Last Admin: 10/24/17 10:02 Dose: 40 mg ALLERGIES atorvastatin [From Lipitor] Adverse Reaction (Verified 08/16/17 11:47) celecoxib [From Celebrex] Adverse Reaction (Verified 08/16/17 11:47) diazepam [From Valium] Adverse Reaction (Verified 08/16/17 11:47) hydrochlorothiazide [From Hyzaar] Adverse Reaction (Verified 08/16/17 11:47) losartan [From Hyzaar] Adverse Reaction (Verified 08/16/17 11:47) oxaprozin [From Daypro] Adverse Reaction (Verified 08/16/17 11:47) Penicillins Adverse Reaction (Verified 06/12/16 15:47) rosuvastatin [From Crestor] Adverse Reaction (Verified 08/16/17 11:47) simvastatin Adverse Reaction (Verified 08/16/17 11:47) IV contrast Adverse Reaction (Uncoded 10/16/17 19:23) NEW PRESCRIPTIONS: Metronidazole [Flagyl] 500 mg PO BID #14 tablet 10/24/17 Potassium Chloride [K-Tab ER] 10 meq PO DAILY #7 tablet.er 10/24/17 SMOKING: FORMER SMOKER NONE FOR 20 YEARS DISEASE SPECIFIC EDUCATION: DIVERTICULITIS GASTRITIS CHOLELITHIASIS DEHYDRATION WEIGHT LOSS APPROPRIATE DIET HOME MEDICATIONS PRESCRIPTIONS FOLLOW UP OUTPATIENT TESTING (HIDA SCAN) LAB REVIEW: 10/24/17 05:00 10/24/17 05:00 10/24/17 05:00: Sodium 137, Potassium 3.9, Chloride 104, Carbon Dioxide 29, Anion Gap 7.9, BUN 13, Creatinine 0.82, Estimated GFR (MDRD) 68.00, BUN/ Creatinine Ratio 15.85, Glucose 93, Calcium 9.6, Total Bilirubin 0.6, AST 28, ALT 33, Alkaline Phosphatase 33 L, Total Protein 5.0 L, Albumin 2.7 L, Globulin 2.3, Albumin/Globulin Ratio 1.17 10/24/17 05:00: WBC 6.22, RBC 3.76 L, Hgb 11.0 L, Hct 33.4 L, MCV 88.8, MCH 29.3 , MCHC 32.9, RDW Coeff of Cely 14.4, Plt Count 211, Immature Gran % (Auto) 0.3, Neut % (Auto) 65.6, Lymph % (Auto) 22.3, [place] % (Auto) 7.4, Eos % (Auto) 3.9, Baso % (Auto) 0.5, Immature Gran # (Auto) 0.0, Neut # (Auto) 4.1, Lymph # (Auto ) 1.4, [place] # (Auto) 0.5, Eos # (Auto) 0.2, Baso # (Auto) 0.0 PLAN: DISCHARGE HOME TODAY RETURN TO SEE DR. JACKSON IN HIS OFFICE ON 10/30/17 AT 1:45 P.M. RETURN TO [facility] OUTPATIENT ON 10/25/17 AT 8 A.M. TO HAVE A GALLBLADDER HIDA SCAN. IN PREPARATION FOR THE TEST, DO NOT EAT OR DRINK ANYTHING AFTER MIDNIGHT THE EVENING BEFORE TESTING (DO NOT PUT ANYTHING IN YOUR MOUTH INCLUDING YOUR MEDICATIONS AFTER MIDNIGHT) RESUME YOUR HOME MEDICATIONS PER LIST PROVIDED BY THE NURSING STAFF NEW PRESCRIPTIONS METRONIDAZOLE (FLAGYL) 500 MG, TAKE ONE TABLET BY MOUTH THREE TIMES DAILY FOR POTASSIUM CHLORIDE (K-DUR) 10 MEQ, TAKE ONE TABLET BY MOUTH DAILY FOR 7 DAYS ACTIVITY GET PLENTY OF REST AT HOME. GRADUALLY INCREASE YOUR ACTIVITY LEVEL ACCORDING TO YOUR TOLERATION DIET SOFT/BLAND FOODS ADVANCE TOLERATED TO 4-5 SMALL LOW FAT MEALS DAILY SUMMARY THE PATIENT IS ALERT AND ORIENTED X3. SHE CURRENTLY RESIDES AT HOME ALONE. SHE IS INDEPENDENT WITH ADL'S AND DOES NOT REQUIRE DME, HOME HEALTH OR HOMEMAKING SERVICES. SHE DESIRES TO RETURN HOME AT DISCHARGE. HER SKIN TURGOR IS INTACT AND WITHOUT DECUBITUS ULCERS. NUTRITIONAL AND HYDRATION STATUS HAVE IMPROVED. MS. CH TELLS US SHE IS READY FOR DISCHARGE HOME. SHE HAS RECEIVED VERBAL DISCHARGE INSTRUCTIONS AND WILL ALSO BE PROVIDED WRITTEN INSTRUCTIONS WELL. CURRENT CODE STATUS FULL CODE AMISH TAVARES APRN MILES JACKSON M.D.
--- NOTE | 2017-10-24 15:36 | DS ---
DATE OF SERVICE: 10/24/17 FINAL DIAGNOSIS: DIVERTICULITIS, ACUTE (IMPROVED) GASTROENTERITIS, ACUTE (IMPROVED) DEHYDRATION, ACUTE (RESOLVED) WEIGHT LOSS (6-8 POUNDS/1 WEEK PRIOR TO ADMISSION) DIVERTICULOSIS (CT ABD/PELVIS 10/23/17) CHOLELITHIASIS/GALLBLADDER SLUDGE (CT ABD/PELVIS 10/20/17) HEPATIC STEATOSIS ASTHMATIC BRONCHITIS HYPERTENSION ANEMIA DYSLIPIDEMIA SLEEP APNEA OBESITY OSTEOARTHRITIS PREVIOUS SMOKER, STOPPED 20 YRS AGO LAST VITALS: Temp Pulse Resp BP Pulse Ox 98.1 F 64 16 161/79 H 96 TAKE THESE MEDICATIONS AT HOME: Albuterol Sulfate (Proair Hfa) 2 puff IH QID JENNIE Aspirin (Aspirin Chewable) 81 mg PO DAILYWM JENNIE Lisinopril/HCTZ (Zestoretic 20-12.5 Mg Tab) 1 tab PO BID JENNIE Metronidazole 500 mg PO BID JENNIE X7 DAYS Mometasone Furoate [Asmanex Hfa] 1 inh INH BID JENNIE Pantoprazole Sodium (Protonix) 40 mg PO BIDAC JENNIE Potassium CHL (K-Tab) 10 meq PO DAILY X7 DAYS Pravastatin Sodium (Pravachol) 40 mg PO DAILY [facility] ALLERGIES: atorvastatin [From Lipitor] Adverse Reaction (Verified 08/16/17 11:47) celecoxib [From Celebrex] Adverse Reaction (Verified 08/16/17 11:47) diazepam [From Valium] Adverse Reaction (Verified 08/16/17 11:47) hydrochlorothiazide [From Hyzaar] Adverse Reaction (Verified 08/16/17 11:47) losartan [From Hyzaar] Adverse Reaction (Verified 08/16/17 11:47) oxaprozin [From Daypro] Adverse Reaction (Verified 08/16/17 11:47) Penicillins Adverse Reaction (Verified 06/12/16 15:47) rosuvastatin [From Crestor] Adverse Reaction (Verified 08/16/17 11:47) simvastatin Adverse Reaction (Verified 08/16/17 11:47) IV contrast Adverse Reaction (Uncoded 10/16/17 19:23) NEW PRESCRIPTIONS: Metronidazole [Flagyl] 500 mg PO BID #14 tablet 10/24/17 Potassium Chloride [K-Tab ER] 10 meq PO DAILY #7 tablet.er 10/24/17 SMOKING: FORMER SMOKER NONE FOR 20 YEARS DISEASE SPECIFIC EDUCATION: DIVERTICULITIS GASTRITIS CHOLELITHIASIS DEHYDRATION WEIGHT LOSS APPROPRIATE DIET HOME MEDICATIONS PRESCRIPTIONS FOLLOW UP OUTPATIENT TESTING (HIDA SCAN) PLAN: DISCHARGE HOME TODAY RETURN TO SEE DR. JACKSON IN HIS OFFICE ON 10/30/17 AT 1:45 P.M. RETURN TO [facility] ON 10/25/17 AT 8 A.M. TO HAVE A GALLBLADDER HIDA SCAN. IN PREPARATION FOR THE TEST, DO NOT EAT OR DRINK ANYTHING AFTER MIDNIGHT THE EVENING BEFORE TESTING (DO NOT PUT ANYTHING IN YOUR MOUTH INCLUDING YOUR MEDICATIONS AFTER MIDNIGHT) RESUME YOUR HOME MEDICATIONS PER LIST PROVIDED BY THE NURSING STAFF ACTIVITY: GET PLENTY OF REST AT HOME. GRADUALLY INCREASE YOUR ACTIVITY LEVEL ACCORDING TO YOUR TOLERATION DIET: SOFT/BLAND FOODS ADVANCE TOLERATED TO 4-5 SMALL LOW FAT MEALS DAILY HOSPITAL COURSE: 72 year old white female hospitalized with acute gastroenteritis. The patient's condition improved with Flagyl. She still continued to have some distress off and on. Abdomen remained soft and bowel sounds were active. She has possibility of gallbladder disease, she will have hiatus scan as an outpatient. The patient did not have any acute infection. She was up and about. Her cardiovascular and respiratory was stable. The patient was seen and examined with Nurse Practitioner. CONDITION: Stable. TIME SPENT: More than 60 minutes. MTDD
--- NOTE | 2017-10-25 09:31 | PN ---
10/16/17: Level 5 10/17/17: Intermediate 10/18/17: Intermediate 10/19/17: Intermediate 10/20/17: Intermediate 10/21/17: Intermediate 10/22/17: Brief 10/23/17: Brief 10/24/17: D as in discharge MTDD
== END 2017-10-24 13:20 | disposition home or self-care (01) | DRG 392 ==
LOC: MEDSURG B 14:00
PROVIDERS: ADMIT Internal Medicine; ATTEND Internal Medicine
DX: K52.9 Noninfective gastroenteritis and colitis, unspecified (principal); I50.1 Left ventricular failure, unspecified; E86.0 Dehydration; R63.4 Abnormal weight loss; K57.90 Diverticulosis of intestine, part unspecified, without perforation or abscess without bleeding; K80.20 Calculus of gallbladder without cholecystitis without obstruction; K76.0 Fatty (change of) liver, not elsewhere classified; J45.909 Unspecified asthma, uncomplicated; I10 Essential (primary) hypertension; D64.9 Anemia, unspecified; E78.5 Hyperlipidemia, unspecified; G47.30 Sleep apnea, unspecified; E66.9 Obesity, unspecified; M19.90 Unspecified osteoarthritis, unspecified site; M17.10 Unilateral primary osteoarthritis, unspecified knee; J42 Unspecified chronic bronchitis; M16.11 Unilateral primary osteoarthritis, right hip; K29.00 Acute gastritis without bleeding; M62.830 Muscle spasm of back; J44.9 Chronic obstructive pulmonary disease, unspecified; Z68.38 Body mass index [BMI] 38.0-38.9, adult
CPT/HCPCS: 36415; 80053; 81001; 82150; 82550; 83690; 84484; 85007; 85025; 87015; 87045; 87086; 87493; 87899; 93005; 93010; 97802

== ENCOUNTER 2017-10-25 07:54 | Outpatient (CLI) | payer OTHER | END 2017-10-25 07:55 | disposition home or self-care (01) | LOC: RAD 07:54 | PROVIDERS: ATTEND Internal Medicine | DX: K80.20 Calculus of gallbladder without cholecystitis without obstruction (principal); R10.9 Unspecified abdominal pain ==